=== PATIENT | female | born 1985 | race American Indian/Alaskan Native ===

== ENCOUNTER 2017-11-27 09:47 | Emergency (ER) | payer MEDICARE ==
[2017-11-27 13:27] LABS: Bilirubin,Urine NEG (Negative); Blood,Urine NEG (Negative); Color,Urine Yellow (Yellow); Mucus,Urine FEW /HPF; Nitrite,Urine NEG (Negative); Protein,Urine <15 mg/dL mg/dL (Negative); Urobilinogen,Urine < 2.0 mg/dL (<2.0); WBC,Urine < 1.0 /HPF (0.0-6.0)
[2017-11-27] MEDS ORDERED: MORPHINE IV ONE (13:34)
[2017-11-27] MEDS ORDERED: ZOFRAN IV ONE ×2 (13:34→15:49)
[2017-11-27] MEDS ORDERED: NACL 0.9% 1000 ML 1,000 ML IV ONE (13:34)
--- NOTE | 2017-11-27 13:38 | Emergency Department Report ---
Chief Complaint: Abdominal Pain Stated Complaint: LEFT FLANK/BACK PAIN - HPI History of Present Illness: 32 yo female with hx of SBO from previous surgery presents with severe left flank pain. No hx of kidney stone. Patient is in severe pain. - Exam Vital Signs: Vital Signs 11/27/17 10:22 Temperature 98.1 F Pulse Rate 75 Respiratory 16 Rate Blood Pressure 128/83 O2 Sat by Pulse 100 Oximetry MSE screening note: Focused history and physical exam performed. Due to findings the following was ordered: ED Disposition for MSE Condition: Stable Instructions: Abdominal Pain (ED) Referrals: [facility] [Other] - 3-5 Days
--- NOTE | 2017-11-27 13:44 | Emergency Department Report ---
ED Abdominal Pain HPI - General Chief Complaint: Abdominal Pain Stated Complaint: LEFT FLANK/BACK PAIN Time Seen by Provider: 11/27/17 13:40 Source: patient Mode of arrival: Ambulatory Limitations: No Limitations - History of Present Illness Initial Comments: Patient is complaining of pain since yesterday with sudden onset. Reports painful urination with blood in her urine. She states have bowel obstruction similar to that. Positive nausea and vomiting. Pain distended into the flank and throbbing. Denies any fever or chills. Denies any chest pain or shortness of breath. Last menstrual period was 11/16/2017. MD Complaint: flank pain -: Last night Location: L flank Radiation: none Migration to: no migration Severity: severe Severity scale (0 -10): 10 Quality: other (throbbing ) Consistency: constant Improves With: nothing Worsens With: nothing Associated Symptoms: nausea, vomiting, dysuria, other (history of SBO). denies : diarrhea, fever, chills, constipation, hematemesis, hematochezia, melena, hematuria, anorexia, syncope Treatments Prior to Arrival: NSAIDs - Related Data LMP Date: 11/16/17 Home Medications Medication Instructions Recorded Confirmed Last Taken FLUoxetine HCL [Prozac] 40 mg PO DAILY 02/22/14 02/22/14 02/22/14 Lisinopril/Hydrochlorothiazide 1 mg PO DAILY 02/22/14 02/22/14 02/22/14 [Zestoretic 20-12.5 mg] Topiramate [Topamax] 25 mg PO DAILY 02/22/14 02/22/14 02/21/14 fluPHENAZine HCL [Fluphenazine] 10 mg PO BID 02/22/14 02/22/14 02/22/14 metFORMIN [Glucophage] 250 mg PO DAILY 02/22/14 02/22/14 02/21/14 Previous Rx's Medication Instructions Recorded Last Taken Type HYDROcodone/APAP 5-325 [[place] 1 each PO Q6HR PRN #20 tablet 02/23/14 Unknown Rx 5/325 mg] Acetamin/Codeine 120-12Mg/5 ml 5 ml PO TID PRN #30 ml 09/02/15 Unknown Rx [Tylenol/Codeine] Azithromycin [Zithromax Z-ADAN] 250 mg PO DAILY #6 tab 09/02/15 Unknown Rx HYDROcodone/APAP 10-325 [[place] 1 each PO Q6HR PRN #12 tablet 11/27/17 Unknown Rx 10-325 mg TAB] Promethazine [Phenergan TAB] 25 mg PO Q6HR PRN #12 tab 11/27/17 Unknown Rx Allergies Allergy/AdvReac Type Severity Reaction Status Date / Time Milk Containing Products Allergy Vomiting Verified 11/27/17 10:22 ED Review of Systems ROS: Stated complaint: LEFT FLANK/BACK PAIN Other details as noted in HPI Comment: All other systems reviewed and negative Constitutional: no symptoms reported Respiratory: no symptoms reported Cardiovascular: denies: chest pain, palpitations, dyspnea on exertion, orthopnea , syncope, paroxysmal nocturnal dyspnea Gastrointestinal: denies: nausea, vomiting, diarrhea, constipation, hematemesis , melena, hematochezia Genitourinary: dysuria, hematuria, other (left flank pain). denies: urgency, frequency, discharge, abnormal menses Musculoskeletal: back pain (flank pain). 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 gastric bypass 3 months ago - Family History Family history: no significant - Social History Smoking Status: Never Smoker Substance Use Type: None - Medications Home Medications: Home Medications Medication Instructions Recorded Confirmed Last Taken Type FLUoxetine HCL [Prozac] 40 mg PO DAILY 02/22/14 02/22/14 02/22/14 History Lisinopril/Hydrochlorothiazide 1 mg PO DAILY 02/22/14 02/22/14 02/22/14 History [Zestoretic 20-12.5 mg] Topiramate [Topamax] 25 mg PO DAILY 02/22/14 02/22/14 02/21/14 History fluPHENAZine HCL [Fluphenazine] 10 mg PO BID 02/22/14 02/22/14 02/22/14 History metFORMIN [Glucophage] 250 mg PO DAILY 02/22/14 02/22/14 02/21/14 History HYDROcodone/APAP 5-325 [[place] 1 each PO Q6HR PRN #20 tablet 02/23/14 Unknown Rx 5/325 mg] Acetamin/Codeine 120-12Mg/5 ml 5 ml PO TID PRN #30 ml 09/02/15 Unknown Rx [Tylenol/Codeine] Azithromycin [Zithromax Z-ADAN] 250 mg PO DAILY #6 tab 09/02/15 Unknown Rx HYDROcodone/APAP 10-325 [[place] 1 each PO Q6HR PRN #12 tablet 11/27/17 Unknown Rx 10-325 mg TAB] Promethazine [Phenergan TAB] 25 mg PO Q6HR PRN #12 tab 11/27/17 Unknown Rx ED Physical Exam - General Limitations: No Limitations General appearance: alert, in no apparent distress - Head Head exam: Present: atraumatic, normocephalic, normal inspection - Eye Eye exam: Present: normal appearance, PERRL, EOMI Pupils: Present: normal accommodation - ENT ENT exam: Present: normal exam, normal orophraynx - Neck Neck exam: Present: normal inspection, full ROM, other (C-spine tenderness). Absent: tenderness, meningismus, lymphadenopathy, thyromegaly - Respiratory Respiratory exam: Present: normal lung sounds bilaterally, respiratory distress. Absent: rhonchi, stridor, chest wall tenderness, accessory muscle use , decreased breath sounds, prolonged expiratory - Cardiovascular Cardiovascular Exam: Present: regular rate, normal rhythm, normal heart sounds. Absent: systolic murmur, diastolic murmur - GI/Abdominal GI/Abdominal exam: Present: soft, tenderness (left lower quadrant), normal bowel sounds. Absent: distended, guarding, rebound, rigid, diminished bowel sounds, hyperactive bowel sounds, hypoactive bowel sounds, organomegaly, bruit, pulsatile mass, hernia - Extremities Exam Extremities exam: Present: normal inspection, full ROM, normal capillary refill , other (no clubbing, cyanosis or edema. +2 pulses in all extremities). Absent : tenderness, pedal edema, joint swelling, calf tenderness - Back Exam Back exam: Present: normal inspection, full ROM, tenderness, CVA tenderness (L) , other (ambulates without any difficulties). Absent: CVA tenderness (R), muscle spasm, paraspinal tenderness, vertebral tenderness, rash noted - Neurological Exam Neurological exam: Present: alert, oriented X3, normal gait, reflexes normal. Absent: motor sensory deficit - Psychiatric Psychiatric exam: Present: normal affect, normal mood - Skin Skin exam: Present: warm, dry, intact, normal color. Absent: rash ED Course Vital Signs 11/27/17 11/27/17 11/27/17 10:22 14:02 14:55 Temperature 98.1 F Pulse Rate 75 Respiratory 16 18 18 Rate Blood Pressure 128/83 O2 Sat by Pulse 100 Oximetry 11/27/17 16:00 Temperature Pulse Rate Respiratory 18 Rate Blood Pressure O2 Sat by Pulse Oximetry - Reevaluation(s) Reevaluation #1: 11/27/17 13:48 Patient started on IV fluid normal saline 1 L, Zofran 4 mg IV and morphine 4 mg IV and reevaluated. She is currently waiting for CT scan of the abdomen and pelvis without contrast. Reevaluation #2: 11/27/17 14:51 Patient received morphine and IV fluid along with Zofran. She still reported no abdominal pain. CT scan she'll probably small bowel obstruction. Patient to receive Toradol 30 mg IV. No change in abdominal exam and still with left flank pain Reevaluation #3: 11/27/17 16:07 Patient received Dilaudid 1 mg IV and Zofran 4 mg IV and is currently evaluating patient Reevaluation #4: 11/27/17 16:55 Dr. Peters saw patient and okay with patient being discharged home. Patient says she feels better and ready to be discharged ED Medical Decision Making - Lab Data Result diagrams: 11/27/17 13:48 11/27/17 13:48 Urinalysis Lab Results 11/27/17 Range/Units 13:05 Urine Color Yellow (Yellow) Urine Turbidity Clear (Clear) Urine pH 7.0 (5.0-7.0) Ur Specific [place] 1.013 (1.003-1.030) Urine Protein <15 mg/dl (Negative) mg/dL Urine Glucose (UA) Neg (Negative) mg/dL Urine Ketones Neg (Negative) mg/dL Urine Blood Neg (Negative) Urine Nitrite Neg (Negative) Urine Bilirubin Neg (Negative) Urine Urobilinogen < 2.0 (<2.0) mg/dL Ur Leukocyte Esterase Neg (Negative) Urine WBC (Auto) < 1.0 (0.0-6.0) /HPF Urine RBC (Auto) 1.0 (0.0-6.0) /HPF U Epithel Cells (Auto) 1.0 (0-13.0) /HPF Urine Mucus Few /HPF Lab Results 11/27/17 11/27/17 11/27/17 Range/Units 13:05 13:34 13:48 WBC 5.9 (4.5-11.0) K/mm3 RBC 4.02 (3.65-5.03) M/mm3 Hgb 12.1 (10.1-14.3) gm/dl Hct 36.2 (30.3-42.9) % MCV 90 (79-97) fl MCH 30 (28-32) pg MCHC 34 (30-34) % RDW 13.4 (13.2-15.2) % Plt Count 271 (140-440) K/mm3 Lymph % (Auto) 38.9 H (13.4-35.0) % Levy % (Auto) 6.7 (0.0-7.3) % Eos % (Auto) 1.7 (0.0-4.3) % Baso % (Auto) 0.7 (0.0-1.8) % Lymph # 2.3 (1.2-5.4) K/mm3 Levy # 0.4 (0.0-0.8) K/mm3 Eos # 0.1 (0.0-0.4) K/mm3 Baso # 0.0 (0.0-0.1) K/mm3 Seg Neutrophils % 52.0 (40.0-70.0) % Seg Neutrophils # 3.1 (1.8-7.7) K/mm3 Sodium (137-145) mmol/L Potassium (3.6-5.0) mmol/L Chloride (98-107) mmol/L Carbon Dioxide (22-30) mmol/L Anion Gap mmol/L BUN (7-17) mg/dL Creatinine (0.7-1.2) mg/dL Estimated GFR ml/min BUN/Creatinine Ratio % Glucose (65-100) mg/dL Calcium (8.4-10.2) mg/dL Total Bilirubin (0.1-1.2) mg/dL Direct Bilirubin (0-0.2) mg/dL Indirect Bilirubin mg/dL AST (5-40) units/L ALT (7-56) units/L Alkaline Phosphatase (35-129) units/L Total Protein (6.3-8.2) g/dL Albumin (3.9-5) g/dL Albumin/Globulin Ratio % Lipase (13-60) units/L Urine Color Yellow (Yellow) Urine Turbidity Clear (Clear) Urine pH 7.0 (5.0-7.0) Ur Specific [place] 1.013 (1.003-1.030) Urine Protein <15 mg/dl (Negative) mg/dL Urine Glucose (UA) Neg (Negative) mg/dL Urine Ketones Neg (Negative) mg/dL Urine Blood Neg (Negative) Urine Nitrite Neg (Negative) Urine Bilirubin Neg (Negative) Urine Urobilinogen < 2.0 (<2.0) mg/dL Ur Leukocyte Esterase Neg (Negative) Urine WBC (Auto) < 1.0 (0.0-6.0) /HPF Urine RBC (Auto) 1.0 (0.0-6.0) /HPF U Epithel Cells (Auto) 1.0 (0-13.0) /HPF Urine Mucus Few /HPF Urine HCG, Qual Negative (Negative) 11/27/17 Range/Units 13:48 WBC (4.5-11.0) K/mm3 RBC (3.65-5.03) M/mm3 Hgb (10.1-14.3) gm/dl Hct (30.3-42.9) % MCV (79-97) fl MCH (28-32) pg MCHC (30-34) % RDW (13.2-15.2) % Plt Count (140-440) K/mm3 Lymph % (Auto) (13.4-35.0) % Levy % (Auto) (0.0-7.3) % Eos % (Auto) (0.0-4.3) % Baso % (Auto) (0.0-1.8) % Lymph # (1.2-5.4) K/mm3 Levy # (0.0-0.8) K/mm3 Eos # (0.0-0.4) K/mm3 Baso # (0.0-0.1) K/mm3 Seg Neutrophils % (40.0-70.0) % Seg Neutrophils # (1.8-7.7) K/mm3 Sodium 137 (137-145) mmol/L Potassium 4.2 (3.6-5.0) mmol/L Chloride 99.6 (98-107) mmol/L Carbon Dioxide 27 (22-30) mmol/L Anion Gap 15 mmol/L BUN 7 (7-17) mg/dL Creatinine 0.4 L (0.7-1.2) mg/dL Estimated GFR > 60 ml/min BUN/Creatinine Ratio 18 % Glucose 89 (65-100) mg/dL Calcium 9.0 (8.4-10.2) mg/dL Total Bilirubin 0.60 (0.1-1.2) mg/dL Direct Bilirubin < 0.2 (0-0.2) mg/dL Indirect Bilirubin 0.4 mg/dL AST 18 (5-40) units/L ALT 17 (7-56) units/L Alkaline Phosphatase 72 (35-129) units/L Total Protein 6.9 (6.3-8.2) g/dL Albumin 4.0 (3.9-5) g/dL Albumin/Globulin Ratio 1.4 % Lipase 19 (13-60) units/L Urine Color (Yellow) Urine Turbidity (Clear) Urine pH (5.0-7.0) Ur Specific [place] (1.003-1.030) Urine Protein (Negative) mg/dL Urine Glucose (UA) (Negative) mg/dL Urine Ketones (Negative) mg/dL Urine Blood (Negative) Urine Nitrite (Negative) Urine Bilirubin (Negative) Urine Urobilinogen (<2.0) mg/dL Ur Leukocyte Esterase (Negative) Urine WBC (Auto) (0.0-6.0) /HPF Urine RBC (Auto) (0.0-6.0) /HPF U Epithel Cells (Auto) (0-13.0) /HPF Urine Mucus /HPF Urine HCG, Qual (Negative) - Radiology Data Radiology results: report reviewed CT scan with dilated small bowel related to the lower surgical clips. Consider partial obstruction. Nonobstructive small left renal calculi - Medical Decision Making ED course: Patient here complaining of left flank pain that radiated into her lower abdomen. Patient found to have left kidney stone and CT scan showed possible bowel obstruction. Patient was seen by surgeon Dr. Peters who evaluated patient and reported that he looked head CT scan and patient has swelling to her colon which is related to past surgery and not to bowel obstruction. Patient laboratory results stable to include urinalysis. Please refer to left section for details. CT scan results and laboratory results discussed with patient and she voiced understanding. Patient had her surgery at the [facility] for gastric bypass and I discussed with her that she'll need to follow up with her surgeon and also her primary care physician which she does have a primary care physician. Patient medicated with morphine 4 mg IV total of 8 mg IV, she was given normal saline 2 L, Toradol 30 mg IV ,Zofran 8 mg and Dilaudid 1 mg IV. Her pain is controlled. Vital signs stable and patient discharged home with her family in stable condition with prescription for Moren[place] and Phenergan. She is feeling much better. Critical care attestation.: If time is entered above; I have spent that time in minutes in the direct care of this critically ill patient, excluding procedure time. ED Disposition Clinical Impression: Left flank pain, Status post gastric bypass for obesity, Kidney stone on left side, Nausea and vomiting in adult, Dysuria Abdominal pain Qualifiers: Abdominal location: left lower quadrant Qualified Code(s): R10.32 - Left lower quadrant pain Disposition: DC-01 TO HOME OR SELFCARE Is pt being admited?: No Does the pt Need Aspirin: No Condition: Stable Instructions: Flank Pain (ED), Renal Colic (ED), Acute Nausea and Vomiting (ED) , Dysuria (ED), Abdominal Pain (ED) Additional Instructions: Please follow up with a primary care physician and also your surgeon at the [facility] Take medication as prescribed Increase your fluid intake to 2-3 L of water and cranberry juice per day. Do not drive or operate heavy machinery while taking Morenci and Phenergan as this medication causes drowsiness If you symptoms return , return to the emergency room otherwise follow-up with your primary care doctor Prescriptions: HYDROcodone/APAP 10-325 [[place] 10-325 mg TAB] 1 each PO Q6HR PRN #12 tablet PRN Reason: Pain Promethazine [Phenergan TAB] 25 mg PO Q6HR PRN #12 tab PRN Reason: Nausea Referrals: [facility] [Other] - 3-5 Days Forms: Work/School Release Form(ED)
[2017-11-27 13:54] LABS: HCG Qualitative,Urine Negative (Negative)
[2017-11-27 14:13] LABS: Basophils % (Auto) 0.7 % (0.0-1.8); Eosinophils # (Auto) 0.1 K/mm3 (0.0-0.4); Eosinophils % (Auto) 1.7 % (0.0-4.3); Hematocrit 36.2 % (30.3-42.9); Hemoglobin 12.1 gm/dl (10.1-14.3); Lymphocytes # (Auto) 2.3 K/mm3 (1.2-5.4); Lymphocytes % (Auto) 38.9 % (13.4-35.0); Mean Corpuscular HGB Conc 34 % (30-34); Mean Corpuscular Hemoglobin 30 pg (28-32); Mean Corpuscular Volume 90 fl (79-97); Monocytes # (Auto) 0.4 K/mm3 (0.0-0.8); Monocytes % (Auto) 6.7 % (0.0-7.3); Platelet Count 271 K/mm3 (140-440); Red Blood Count 4.02 M/mm3 (3.65-5.03); Red Cell Distribution Width 13.4 % (13.2-15.2)
[2017-11-27 14:27] LABS: Alanine Aminotransferase 17 units/L (7-56); BUN/Creatinine Ratio 18; Blood Urea Nitrogen 7 mg/dL (7-17); Hemolysis Index 3; Lipase 19 units/L (13-60)
[2017-11-27 14:28] LABS: Bilirubin,Direct < 0.2 mg/dL (0-0.2)
--- NOTE | 2017-11-27 14:34 | Cat Scan Report ---
CT abdomen and pelvis without contrast: Gastric bypass and colon tumor removal currently presenting with flank pain mostly on the left. Transverse images were obtained from the lower chest with coronal and sagittal reformatted images. The visualized lung bases are clear. Gastric bypass changes are noted with no apparent complication. The abdominal organs are not otherwise remarkable. 2 small calculi are present in the mid left kidney the larger measuring 3 mm. No obstruction. The retroperitoneal organs are not otherwise remarkable. Scattered surgical clips are also identified in the low midabdomen. There are several dilated loops of small bowel in the lower abdomen in the region of the clips. There is gas and fecal matter in the nondistended colon. Impression: 1. Dilated small bowel related to the lower surgical clips. Consider partial obstruction. 2. Nonobstructing small left renal calculi.
[2017-11-27] MEDS ORDERED: TORADOL IV ONE (14:38)
[2017-11-27] MEDS ORDERED: DILAUDID IV ONE (15:49)
[2017-11-27 17:22] VITALS: BP 114/64
--- NOTE | 2017-11-27 18:37 | Consultation ---
History of Present Illness Consult date: 11/27/17 Reason for consult: abdominal pain Requesting physician: NORA CLIFTON Chief complaint: abdominal pain since yesterday - History of present illness History of present illness: 32yo F with h/o multiple abdominal surgeries including ex-lap for bowel obstruction last year presents with 2 day h/o left sided abdominal pain, N/V, hematuria. Pain is similar to when she had a bowel obstruction in the past. Has been vomiting small amount of yellow liquid since yesterday. Had a normal BM today. Has been passing gas. Body feels a little bloated which is normal for her during this part of her menstrual cycle. The pain is hard to describe. Does come and go. Involves the left back, side, hip and left lower abdomen. Denies F/ C. No cough or cold sx's. No chest pain. No breathing difficulties. No hematemesis or BRBPR. Past History Past Medical History: diabetes, hypertension, other (bipolar) Past Surgical History: appendectomy, bowel surgery (partial colectomy for "carcinoid?"; lysis of adhesions for bowel obstruction.), Other (gastric bypass surgery) Social history: other (not working). denies: smoking, alcohol abuse Family history: no significant family history Medications and Allergies Allergies Allergy/AdvReac Type Severity Reaction Status Date / Time Milk Containing Products Allergy Vomiting Verified 11/27/17 10:22 Home Medications Medication Instructions Recorded Confirmed Last Taken Type FLUoxetine HCL [Prozac] 40 mg PO DAILY 02/22/14 02/22/14 02/22/14 History Lisinopril/Hydrochlorothiazide 1 mg PO DAILY 02/22/14 02/22/14 02/22/14 History [Zestoretic 20-12.5 mg] Topiramate [Topamax] 25 mg PO DAILY 02/22/14 02/22/14 02/21/14 History fluPHENAZine HCL [Fluphenazine] 10 mg PO BID 02/22/14 02/22/14 02/22/14 History metFORMIN [Glucophage] 250 mg PO DAILY 02/22/14 02/22/14 02/21/14 History HYDROcodone/APAP 5-325 [[place] 1 each PO Q6HR PRN #20 tablet 02/23/14 Unknown Rx 5/325 mg] Acetamin/Codeine 120-12Mg/5 ml 5 ml PO TID PRN #30 ml 09/02/15 Unknown Rx [Tylenol/Codeine] Azithromycin [Zithromax Z-ADAN] 250 mg PO DAILY #6 tab 09/02/15 Unknown Rx HYDROcodone/APAP 10-325 [[place] 1 each PO Q6HR PRN #12 tablet 11/27/17 Unknown Rx 10-325 mg TAB] Promethazine [Phenergan TAB] 25 mg PO Q6HR PRN #12 tab 11/27/17 Unknown Rx Review of Systems - Constitutional no fever, no chills, no sweats - Cardiovascular no chest pain - Respiratory no cough, no shortness of breath - Gastrointestinal abdominal pain (only on left side), nausea, vomiting, dyspepsia/bloating ( normal during time of her cycle), no diarrhea, no hematemesis, no BRBPR - Genitourinary Genitourinary: hematuria (yesterday) - Hematologic/Lymphatic no easy bruising, no easy bleeding Exam Vital Signs Temp Pulse Resp BP Pulse Ox 98.1 F 75 16 128/83 100 11/27/17 10:22 11/27/17 10:22 11/27/17 10:22 11/27/17 10:22 11/27/17 10:22 - General physical appearance Positive: well developed, well nourished, no distress, moderate pain ( intermittenly), other (overweight) - Eyes Positive: normal occular movement. Negative: icteric - Respiratory Positive: normal expansion, normal respiratory effort - Abdomen Abdomen: Present: soft, tender (only on left side. No pelvic shake tenderness), bowel sounds normal, surgical scars (well healed. Midline scar). Absent: distended, rebound, guarding, rigid Hernia: none - Integumentary no rash - Neurologic Neurologic: alert and oriented to time, place and person, motor strength and sensation are grossly intact - Psychiatric Psychiatric: appropriate mood/affect, intact judgment & insight Results - Labs 11/27/17 13:48 11/27/17 13:48 Abnormal lab results 11/27/17 11/27/17 Range/Units 13:48 13:48 Lymph % (Auto) 38.9 H (13.4-35.0) % Creatinine 0.4 L (0.7-1.2) mg/dL Diabetes panel 11/27/17 Range/Units 13:48 Sodium 137 (137-145) mmol/L Potassium 4.2 (3.6-5.0) mmol/L Chloride 99.6 (98-107) mmol/L Carbon Dioxide 27 (22-30) mmol/L BUN 7 (7-17) mg/dL Creatinine 0.4 L (0.7-1.2) mg/dL Glucose 89 (65-100) mg/dL Calcium 9.0 (8.4-10.2) mg/dL AST 18 (5-40) units/L ALT 17 (7-56) units/L Alkaline Phosphatase 72 (35-129) units/L Total Protein 6.9 (6.3-8.2) g/dL Albumin 4.0 (3.9-5) g/dL Calcium panel 11/27/17 Range/Units 13:48 Calcium 9.0 (8.4-10.2) mg/dL Albumin 4.0 (3.9-5) g/dL Pituitary panel 11/27/17 Range/Units 13:48 Sodium 137 (137-145) mmol/L Potassium 4.2 (3.6-5.0) mmol/L Chloride 99.6 (98-107) mmol/L Carbon Dioxide 27 (22-30) mmol/L BUN 7 (7-17) mg/dL Creatinine 0.4 L (0.7-1.2) mg/dL Glucose 89 (65-100) mg/dL Calcium 9.0 (8.4-10.2) mg/dL Adrenal panel 11/27/17 Range/Units 13:48 Sodium 137 (137-145) mmol/L Potassium 4.2 (3.6-5.0) mmol/L Chloride 99.6 (98-107) mmol/L Carbon Dioxide 27 (22-30) mmol/L BUN 7 (7-17) mg/dL Creatinine 0.4 L (0.7-1.2) mg/dL Glucose 89 (65-100) mg/dL Calcium 9.0 (8.4-10.2) mg/dL Total Bilirubin 0.60 (0.1-1.2) mg/dL AST 18 (5-40) units/L ALT 17 (7-56) units/L Alkaline Phosphatase 72 (35-129) units/L Total Protein 6.9 (6.3-8.2) g/dL Albumin 4.0 (3.9-5) g/dL - Imaging CT scan - abdomen: report reviewed, image reviewed Assessment and Plan - Patient Problems (1) Abdominal pain Status: Acute Qualifiers: Abdominal location: left lower quadrant Qualified Code(s): R10.32 - Left lower quadrant pain Plan to address problem: Pt is stable. Pt does not have a bowel obstruction. The CT is not consistent with that diagnosis. Her normal bowel activity today is not consistent. Perhaps she has a muscle strain or a kidney stone. In any event, patient does not require hospital admission for SBO, NGT, or surgery. Discussed with ED team. Ok to go home from my perspective. Time=45min
== END 2017-11-27 17:21 | disposition home or self-care (01) ==
LOC: ED 09:47
DX: R10.30 Lower abdominal pain, unspecified (principal); E66.9 Obesity, unspecified; R11.2 Nausea with vomiting, unspecified; I10 Essential (primary) hypertension; E11.9 Type 2 diabetes mellitus without complications
CPT/HCPCS: 36415; 74176; 80048; 80074; 81001; 81025; 83690; 85025; 87086; 96361; 96374; 96375; 96376; 99284; J1170; J1885; J2270; J2405; J7030

== ENCOUNTER 2017-11-29 10:56 | Emergency (ER) | payer MEDICARE ==
[2017-11-29 11:00] VITALS: BP 132/78
[2017-11-29] MEDS ORDERED: ZOFRAN IV ONE (12:53)
[2017-11-29] MEDS ORDERED: TORADOL IV ONE (12:53)
[2017-11-29] MEDS ORDERED: NACL 0.9% 1000 ML 1,000 ML IV ONE (12:56)
--- NOTE | 2017-11-29 12:56 | Emergency Department Report ---
Chief Complaint: Back Pain/Injury Stated Complaint: BACK PAIN Time Seen by Provider: 11/29/17 12:40 - HPI History of Present Illness: Pt is a 32 yo female here for recurrent vomiting, back pain, and recent diagnosis of kidney stone from a visit 2 days ago. - ROS Review of Systems: ROS: all other systems reviewed and neg except as noted per HPI - Exam Vital Signs: Vital Signs 11/29/17 10:58 Temperature 98.7 F Pulse Rate 93 H Respiratory 16 Rate Blood Pressure 132/78 O2 Sat by Pulse 100 Oximetry Physical Exam: PE: general: awake , alert non-toxic appearing in no acute distress Heent: eomi, perrla; mmm: moist;pharyn clear Lungs:clear Heart: RRR; no g/m/r Abd: soft ND. +Bs; nt; no peritoneal signs MSE screening note: Focused history and physical exam performed. Due to findings the following was ordered: ED Disposition for MSE Condition: Stable Referrals: PRIMARY CARE, [Primary Care Provider] - 3-5 Days
[2017-11-29 13:30] LABS: Basophils % (Auto) 0.7 % (0.0-1.8); Eosinophils # (Auto) 0.1 K/mm3 (0.0-0.4); Eosinophils % (Auto) 2.3 % (0.0-4.3); Hematocrit 37.2 % (30.3-42.9); Hemoglobin 12.2 gm/dl (10.1-14.3); Lymphocytes # (Auto) 2.1 K/mm3 (1.2-5.4); Lymphocytes % (Auto) 45.9 % (13.4-35.0); Mean Corpuscular HGB Conc 33 % (30-34); Mean Corpuscular Hemoglobin 30 pg (28-32); Mean Corpuscular Volume 90 fl (79-97); Monocytes # (Auto) 0.4 K/mm3 (0.0-0.8); Monocytes % (Auto) 8.4 % (0.0-7.3); Platelet Count 302 K/mm3 (140-440); Red Blood Count 4.12 M/mm3 (3.65-5.03); Red Cell Distribution Width 13.7 % (13.2-15.2)
[2017-11-29 13:44] LABS: Alanine Aminotransferase 17 units/L (7-56); Albumin 3.6 g/dL (3.9-5); BUN/Creatinine Ratio 12; Blood Urea Nitrogen 6 mg/dL (7-17); Calcium 8.5 mg/dL (8.4-10.2); Hemolysis Index 42
[2017-11-29] MEDS ORDERED: REGLAN IV ONE (14:17)
[2017-11-29 14:28] LABS: Color,Urine Yellow (Yellow)
[2017-11-29 14:29] LABS: Bilirubin,Urine NEG (Negative); Blood,Urine NEG (Negative); Mucus,Urine 2+ /HPF; Nitrite,Urine NEG (Negative); Protein,Urine <15 mg/dL mg/dL (Negative)
[2017-11-29 14:43] LABS: HCG Qualitative,Urine Negative (Negative)
== END 2017-11-29 14:40 ==
LOC: ED 10:56
DX: R11.10 Vomiting, unspecified (principal); M54.9 Dorsalgia, unspecified; Z53.21 Procedure and treatment not carried out due to patient leaving prior to being seen by health care provider
CPT/HCPCS: 36415; 80053; 81001; 81025; 85025; 96361; 96374; 96375; J1885; J2405; J2765; J7030

== ENCOUNTER 2018-02-05 11:07 | Emergency (ER) | payer MEDICARE ==
[2018-02-05] MEDS ORDERED: ASPIRIN PO ONE (11:30)
[2018-02-05 12:00] LABS: Basophils # (Auto) 0.1 K/mm3 (0.0-0.1); Basophils % (Auto) 1.2 % (0.0-1.8); Eosinophils # (Auto) 0.1 K/mm3 (0.0-0.4); Eosinophils % (Auto) 2.9 % (0.0-4.3); Hematocrit 34.7 % (30.3-42.9); Hemoglobin 11.6 gm/dl (10.1-14.3); Lymphocytes # (Auto) 2.1 K/mm3 (1.2-5.4); Lymphocytes % (Auto) 45.7 % (13.4-35.0); Mean Corpuscular HGB Conc 34 % (30-34); Mean Corpuscular Hemoglobin 29 pg (28-32); Mean Corpuscular Volume 86 fl (79-97); Monocytes # (Auto) 0.4 K/mm3 (0.0-0.8); Monocytes % (Auto) 9.4 % (0.0-7.3); Platelet Count 262 K/mm3 (140-440); Red Blood Count 4.04 M/mm3 (3.65-5.03); Red Cell Distribution Width 13.6 % (13.2-15.2)
[2018-02-05 12:13] LABS: BUN/Creatinine Ratio 14; Blood Urea Nitrogen 7 mg/dL (7-17); Calcium 8.5 mg/dL (8.4-10.2); Hemolysis Index 1
--- NOTE | 2018-02-05 20:14 | Emergency Department Report ---
ED General Adult HPI - General Chief complaint: Chest Pain Stated complaint: CP/POLLACK Time Seen by Provider: 02/05/18 20:06 Source: patient Mode of arrival: Ambulatory Limitations: No Limitations - History of Present Illness Initial comments: Patient is a 32 years old female with no significant past medical history presented to the ER complaining of chest pain and substernal sharp in nature associated with nausea but no vomiting. Patient stated that she woke up yesterday with these symptoms she also reported that she had left upper and lower extremity numbness. Patient denied any neck pain or injury recently. Patient denied any fever cough or congestion. - Related Data Home Medications Medication Instructions Recorded Confirmed Last Taken FLUoxetine HCL [Prozac] 40 mg PO DAILY 02/22/14 02/22/14 02/22/14 Lisinopril/Hydrochlorothiazide 1 mg PO DAILY 02/22/14 02/22/14 02/22/14 [Zestoretic 20-12.5 mg] Topiramate [Topamax] 25 mg PO DAILY 02/22/14 02/22/14 02/21/14 fluPHENAZine HCL [Fluphenazine] 10 mg PO BID 02/22/14 02/22/14 02/22/14 metFORMIN [Glucophage] 250 mg PO DAILY 02/22/14 02/22/14 02/21/14 Previous Rx's Medication Instructions Recorded Last Taken Type HYDROcodone/APAP 5-325 [[place] 1 each PO Q6HR PRN #20 tablet 02/23/14 Unknown Rx 5/325 mg] Acetamin/Codeine 120-12Mg/5 ml 5 ml PO TID PRN #30 ml 09/02/15 Unknown Rx [Tylenol/Codeine] Azithromycin [Zithromax Z-ADAN] 250 mg PO DAILY #6 tab 09/02/15 Unknown Rx HYDROcodone/APAP 10-325 [[place] [employer] 1 each PO Q6HR PRN #12 tablet 11/27/17 Unknown Rx 10-325 mg TAB] Promethazine [Phenergan TAB] 25 mg PO Q6HR PRN #12 tab 11/27/17 Unknown Rx Allergies Allergy/AdvReac Type Severity Reaction Status Date / Time Milk Containing Products Allergy Vomiting Verified 11/29/17 10:58 ED Review of Systems ROS: Stated complaint: CP/POLLACK Other details as noted in HPI Comment: All other systems reviewed and negative Constitutional: denies: chills, fever Respiratory: denies: shortness of breath, SOB with exertion Cardiovascular: chest pain. denies: palpitations, dyspnea on exertion Gastrointestinal: denies: abdominal pain, nausea, vomiting, diarrhea, constipation, hematemesis, melena, hematochezia Genitourinary: denies: urgency, dysuria, frequency, hematuria Neurological: numbness. denies: headache, weakness, paresthesias, confusion, abnormal gait, vertigo ED Past Medical Hx - Past Medical History Hx Hypertension: Yes Hx Diabetes: Yes Hx Psychiatric Treatment: Yes (bipolar) - Surgical History Hx Appendectomy: Yes Additional Surgical History: "tumor on colon removed". gastric bypass 3 months ago - Social History Smoking Status: Never Smoker Substance Use Type: None - Medications Home Medications: Home Medications Medication Instructions Recorded Confirmed Last Taken Type FLUoxetine HCL [Prozac] 40 mg PO DAILY 02/22/14 02/22/14 02/22/14 History Lisinopril/Hydrochlorothiazide 1 mg PO DAILY 02/22/14 02/22/14 02/22/14 History [Zestoretic 20-12.5 mg] Topiramate [Topamax] 25 mg PO DAILY 02/22/14 02/22/14 02/21/14 History fluPHENAZine HCL [Fluphenazine] 10 mg PO BID 02/22/14 02/22/14 02/22/14 History metFORMIN [Glucophage] 250 mg PO DAILY 02/22/14 02/22/14 02/21/14 History HYDROcodone/APAP 5-325 [[place] [employer] 1 each PO Q6HR PRN #20 tablet 02/23/14 Unknown Rx 5/325 mg] Acetamin/Codeine 120-12Mg/5 ml 5 ml PO TID PRN #30 ml 09/02/15 Unknown Rx [Tylenol/Codeine] Azithromycin [Zithromax Z-ADAN] 250 mg PO DAILY #6 tab 09/02/15 Unknown Rx HYDROcodone/APAP 10-325 [[place] 1 each PO Q6HR PRN #12 tablet 11/27/17 Unknown Rx 10-325 mg TAB] Promethazine [Phenergan TAB] 25 mg PO Q6HR PRN #12 tab 11/27/17 Unknown Rx ED Physical Exam - General Limitations: No Limitations General appearance: alert, in no apparent distress - Head Head exam: Present: atraumatic, normocephalic, normal inspection - Eye Eye exam: Present: normal appearance, PERRL - ENT ENT exam: Present: normal exam, normal orophraynx, mucous membranes moist - Neck Neck exam: Present: normal inspection, full ROM. Absent: tenderness, meningismus, lymphadenopathy - Respiratory Respiratory exam: Present: normal lung sounds bilaterally. Absent: respiratory distress, wheezes, rales - Cardiovascular Cardiovascular Exam: Present: regular rate, normal rhythm, normal heart sounds - GI/Abdominal GI/Abdominal exam: Present: soft, normal bowel sounds. Absent: distended, tenderness, guarding, rebound, rigid, organomegaly, mass, bruit, pulsatile mass , hernia - Extremities Exam Extremities exam: Present: normal inspection, full ROM, normal capillary refill - Back Exam Back exam: Present: normal inspection, full ROM. Absent: CVA tenderness (L) - Neurological Exam Neurological exam: Present: alert, oriented X3, CN II-XII intact, normal gait - Skin Skin exam: Present: warm, intact, normal color ED Course Vital Signs 02/05/18 11:26 Temperature 98.1 F Pulse Rate 84 Respiratory 17 Rate Blood Pressure 131/86 O2 Sat by Pulse 99 Oximetry ED Medical Decision Making - Lab Data Result diagrams: 02/05/18 11:35 02/05/18 11:35 - EKG Data -: EKG Interpreted by [place] EKG shows normal: sinus rhythm Rate: normal - EKG Data Interpretation: no acute changes - Radiology Data Radiology results: report reviewed Referring Physician: BRANDO PIPER Patient Name: DARIAN EATON Date of : 1985 Sex: Female Report Date: 2018-02-05 Report Status: Finalized Findings [facility] [address] [place] [address] XRay Report Signed Patient: DARIAN EATON MR#: [id number] : 1985 Acct:[id number] Age/Sex: 32 / F ADM Date: 02/05/18 Loc: ED Attending Dr: Ordering Physician: BRANDO PIPER Date of Service: 02/05/18 Procedure(s): XR chest 1V ap Accession Number(s): [id number] cc: BRANDO PIPER Fluoro Time In Minutes: FINAL REPORT EXAM: XR CHEST 1V AP HISTORY: chest pain TECHNIQUE: Chest, portable upright PRIORS: None. FINDINGS: The heart size is normal. Mediastinal contours are normal. Pulmonary vasculature is not congested. The lungs are clear. There are no pleural effusion seen. There is no evidence of pneumothorax. IMPRESSION: There is no acute abnormality identified. Transcribed By: [facility] Dictated By: ALONZO WILLIS MD Electronically Authenticated By: ALONZO WILLIS MD Signed Date/Time: 02/05/182158 Referring Physician: BRANDO PIPER Patient Name: DARIAN EATON Date of : 1985 Sex: Female Report Date: 2018-02-05 Report Status: [place] [id number] Cat Scan Report Signed Patient: DARIAN EATON MR#: [id number] : 1985 Acct:[id number] Age/Sex: 32 / F ADM Date: 02/05/18 Loc: ED Attending Dr: Ordering Physician: BRANDO PIPER Date of Service: 02/05/18 Procedure(s): CT head/brain wo con Accession Number(s): [id number] cc: BRANDO PIPER FINAL REPORT PROCEDURE: CT HEAD/BRAIN WO CON TECHNIQUE: Computerized tomography of the head was performed without contrast material. HISTORY: left side numbness COMPARISON: No prior studies are available for comparison. FINDINGS: No CT evidence of intracranial mass, hemorrhage, acute territorial infarction, or hydrocephalus. Calvarium is intact. Visualized paranasal sinuses and mastoids are aerated. IMPRESSION: No CT evidence of acute intracranial abnormality Transcribed By: [facility] Dictated By: MORENA TURCIOS M.D. Electronically Authenticated By: MORENA TURCIOS M.D. Signed Date/Time: 02/05/182126 DD/ 26 TD/TT: 02/05/182126 DD/ 58 TD/TT: 02/05/182158 Critical care attestation.: If time is entered above; I have spent that time in minutes in the direct care of this critically ill patient, excluding procedure time. ED Disposition Clinical Impression: Atypical chest pain, Numbness and tingling Disposition: - TO HOME OR SELFCARE Is pt being admited?: No Condition: Stable Instructions: Chest Pain (ED), Costochondritis (ED) Referrals: MERNA LI MD [Primary Care Provider] - 3-5 Days
[2018-02-05 20:51] LABS: Bilirubin,Urine NEG (Negative); Blood,Urine NEG (Negative); Color,Urine Yellow (Yellow); Mucus,Urine 2+ /HPF; Protein,Urine <15 mg/dL mg/dL (Negative); Urobilinogen,Urine < 2.0 mg/dL (<2.0)
[2018-02-05 20:52] LABS: HCG Qualitative,Urine Negative (Negative)
[2018-02-05] MEDS ORDERED: ASPIRIN ONE (21:10)
--- NOTE | 2018-02-05 21:32 | Cat Scan Report ---
FINAL REPORT PROCEDURE: CT HEAD/BRAIN WO CON TECHNIQUE: Computerized tomography of the head was performed without contrast material. HISTORY: left side numbness COMPARISON: No prior studies are available for comparison. FINDINGS: No CT evidence of intracranial mass, hemorrhage, acute territorial infarction, or hydrocephalus. Calvarium is intact. Visualized paranasal sinuses and mastoids are aerated. IMPRESSION: No CT evidence of acute intracranial abnormality
--- NOTE | 2018-02-05 22:04 | XRay Report ---
FINAL REPORT EXAM: XR CHEST 1V AP HISTORY: chest pain TECHNIQUE: Chest, portable upright PRIORS: None. FINDINGS: The heart size is normal. Mediastinal contours are normal. Pulmonary vasculature is not congested. The lungs are clear. There are no pleural effusion seen. There is no evidence of pneumothorax. IMPRESSION: There is no acute abnormality identified.
[2018-02-05 22:45] VITALS: BP 126/81
== END 2018-02-05 22:56 | disposition home or self-care (01) ==
LOC: ED 11:07
DX: R07.89 Other chest pain (principal); R20.2 Paresthesia of skin
CPT/HCPCS: 36415; 70450; 71045; 80048; 81001; 81025; 83690; 84484; 85025; 93005; 93010

== ENCOUNTER 2018-12-15 08:33 | Observation (INO) | payer MEDICARE ==
[2018-12-11 09:51] LABS: Basophils % (Auto) 1.3 % (0.0-1.8); Eosinophils # (Auto) 0.1 K/mm3 (0.0-0.4); Eosinophils % (Auto) 2.2 % (0.0-4.3); Hematocrit 29.3 % (30.3-42.9); Hemoglobin 9.8 gm/dl (10.1-14.3); Lymphocytes # (Auto) 1.6 K/mm3 (1.2-5.4); Lymphocytes % (Auto) 41.9 % (13.4-35.0); Mean Corpuscular HGB Conc 34 % (30-34); Mean Corpuscular Volume 78 fl (79-97); Monocytes # (Auto) 0.3 K/mm3 (0.0-0.8); Monocytes % (Auto) 6.9 % (0.0-7.3); Platelet Count 323 K/mm3 (140-440); Red Blood Count 3.76 M/mm3 (3.65-5.03); Red Cell Distribution Width 17.2 % (13.2-15.2)
--- NOTE | 2018-12-11 09:51 | Anesthesia Consultation ---
Anesthesia Consult and Med Hx Date of service: 12/15/18 - Airway Anesthetic Teeth Evaluation: Good ROM Head & Neck: Adequate Mental/Hyoid Distance: Adequate Mallampati Class: Class II Intubation Access Assessment: Good - Pre-Operative Health Status ASA Pre-Surgery Classification: ASA2 Proposed Anesthetic Plan: General Nerve Block: TAP - Cardiovascular System Hx Hypertension: Yes - Central Nervous System Hx Psychiatric Problems: Yes (Depression) - Hematic Hx Anemia: Yes - Other Systems Hx Cancer: No
[~2018-12-15 08:33] MED LIST: LACTATED RINGERS 1,000 ML IV SCH; NEURONTIN PO NR; TYLENOL PO NR
[2018-12-15] MEDS ORDERED: TYLENOL PO SCH (09:00)
[2018-12-15] MEDS ORDERED: NEURONTIN PO NR (09:00)
--- NOTE | 2018-12-15 09:28 | History and Physical Report ---
History of Present Illness Date of examination: 12/15/18 Chief complaint: Symptomatic uterine fibroids History of present illness: Patient is a 33-year-old female LMP 10/27/18 presents for surgical evaluation and treatment of uterine fibroids. She complains of prolonged heavy vaginal bleeding, and pelvic ultrasound showed uterine fibroids and endometrial biopsy was benign. She desires ovarian conservation, and so is scheduled for a Robotic-Assisted Total Hysterectomy with bilateral salpingectomy. Past History Past Medical History: kidney stones, other (anemia) Past Surgical History: appendectomy, colorectal surgery, gastric bypass [place] History: fibroids Family/Genetic History: none Social history: no significant social history, single Medications and Allergies Allergies Allergy/AdvReac Type Severity Reaction Status Date / Time Milk Containing Products Allergy Vomiting Verified 12/09/18 14:34 Home Medications Medication Instructions Recorded Confirmed Last Taken Type FLUoxetine HCL [Prozac] 40 mg PO DAILY 02/22/14 12/15/18 12/14/18 History Active Meds: Active Medications Acetaminophen (Tylenol) 650 mg PO PREOP JOSE ANTONIO Stop: 12/15/18 23:59 Last Admin: 12/15/18 09:22 Dose: 650 mg Documented by: Celecoxib (Celebrex) 200 mg PO PREOP NR Stop: 12/15/18 15:00 Last Admin: 12/15/18 09:22 Dose: 200 mg Documented by: Gabapentin (Neurontin) 300 mg PO PREOP NR Stop: 12/15/18 16:00 Last Admin: 12/15/18 09:22 Dose: 300 mg Documented by: Lactated Ringer's (Lactated Ringers) 1,000 mls @ 125 mls/hr IV DIRECT JOSE ANTONIO Last Admin: 12/15/18 09:22 Dose: 125 mls/hr Documented by: Review of Systems All systems: negative - Vital Signs Vital signs: Vital Signs Temp Pulse Resp BP Pulse Ox 97.8 F 79 18 126/87 98 12/11/18 09:30 12/11/18 09:30 12/11/18 09:30 12/11/18 09:30 12/11/18 09:30 Temp Pulse Resp BP Pulse Ox 97.8 F 79 18 126/87 98 12/11/18 09:30 12/11/18 09:30 12/11/18 09:30 12/11/18 09:30 12/11/18 09:30 - Physical Exam Breasts: Positive: deferred Cardiovascular: Regular rate Lungs: Positive: Clear to auscultation Abdomen: Positive: normal appearance Genitourinary (Female): Positive: normal external genitalia Vagina: Positive: normal moisture Uterus: Positive: enlarged Extremities: Positive: normal Results Result Diagrams: 12/11/18 09:40 All other labs normal. Ultrasound: report reviewed Assessment and Plan - Patient Problems (1) Uterine fibroid Onset Date: 12/15/18 Current Visit: Yes Status: Acute Qualifiers: Uterine leiomyoma location: intramural and submucous Qualified Code(s): D25.1 - Intramural leiomyoma of uterus; D25.0 - Submucous leiomyoma of uterus Plan to address problem: A: Symptomatic uterine fibroids Menorrhagia Anemia P: Will admit for a Robotic-Assisted Total Hysterectomy with bilateral salpingectomy (2) Menorrhagia with irregular cycle Onset Date: 12/15/18 Current Visit: Yes Status: Chronic
[2018-12-15] MEDS ORDERED: ANCEF/STERILE WATER 2 GM/20 ML 2 GM/20 ML SYRINGE IV SCH (10:00)
[2018-12-15] MEDS ORDERED: NEOSPORIN GU IR ONE ×2 (10:53→11:43)
[2018-12-15] MEDS ORDERED: BLOXIVERZ ONE (10:57)
[2018-12-15] MEDS ORDERED: DIPRIVAN 10 MG/ML IV ONE (10:57)
[2018-12-15] MEDS ORDERED: SUBLIMAZE ONE (10:57)
[2018-12-15] MEDS ORDERED: ROBINUL ONE (10:57)
[2018-12-15] MEDS ORDERED: DECADRON ONE (10:57)
[2018-12-15] MEDS ORDERED: XYLOCAINE MPF 2% ONE (10:57)
[2018-12-15] MEDS ORDERED: TORADOL ONE (10:57)
[2018-12-15] MEDS ORDERED: VERSED IV NR (11:00)
[2018-12-15] MEDS ORDERED: VERSED ONE (11:00)
[2018-12-15] MEDS ORDERED: NACL 0.9% IR ONE ×2 (11:43)
[2018-12-15] MEDS ORDERED: ZOFRAN ONE (12:00)
[2018-12-15] MEDS ORDERED: QUELICIN ONE (12:00)
[2018-12-15] MEDS ORDERED: ZEMURON IV ONE (12:00)
[2018-12-15] MEDS ORDERED: MARCAINE 0.5% INFILTRATI ONE (12:52)
[2018-12-15] MEDS ORDERED: XYLOCAINE 1% 20 mL ONE (12:52)
--- NOTE | 2018-12-15 13:22 | Operative Report ---
Operative Report Operative Report: Date of procedure: 12/15/2018 Pre-operative diagnosis: 1. Symptomatic uterine fibroids 2. Menorrhagia 3. Anemia Post-operative diagnosis: Same Procedure name(s): 1. Robotic-Assisted Total Hysterectomy 2. Bilateral salpingectomy Surgeon: Pietro Suárez MD Application Spec: Catarina Stern CSA Anesthesia: RODNEY Block and general endotracheal intubation EBL: Less than 100 mL's Findings: A 12 week size myomatous uterus with normal tubes and ovaries bilaterally. Procedure: After the patient's first correctly identified she was prepped and draped in the usual sterile fashion and placed in the dorsolithotomy position. The bladder was first catheterized using Loaiza catheter and the speculum was pl aced in the vagina and the anterior lip of the cervix was grasped using a single-tooth tenaculum, and the medium Vesicare cup was placed. The tenaculum and speculum was then removed from the vagina and attention was then turned to the abdomen. The skin knife was used to make a small incision approximately 5 cm above the umbilicus through which a 12 mm trocar was placed under direct visualization. After adequate amount of abdominal insufflation visualization of the pelvic organs found the uterus to be enlarged and the tubes and ovaries were normal bilaterally. A right and left paramedian incision was made through which the 8 mm trochars were placed under direct visualization and a 5 mm trocar was placed in the right lower quadrant. The patient was then placed in steep Trendelenburg positioning and the robot was docked on the patient's left side. After all the robotic ports were connected and adequate functioning of the robotic arms were tested the surgeon then proceeded to the console to begin the hysterectomy. First the left round ligament was grasped, cauterized and cut, the left utero- ovarian ligaments were grasped, cauterized and cut, and the left fallopian tube also grasped, cauterized and cut along the mesosalpinx, thus freeing the left ovary from the left uterine sidewall. The same procedure was performed on the right. The right round ligament was grasped, cauterized and cut, the right utero-ovarian ligaments were grasped, cauterized and cut, and the right fallopian tube also grasped, cauterized and cut along the mesosalpinx, thus freeing the right ovary from the right uterine sidewall. The bladder flap was taken down anteriorly and the uterine vessels were grasped, cauterized and cut bilaterally. The cardinal ligaments were sequentially grasped, cauterized and cut down to the level of the uterosacral ligaments. At this time the posterior colpotomy was performed over the Vcare cup, and the cervix was circumscribed beginning posteriorly and meeting anteriorly until the cervix was freed. The cervix and uterus was then removed through the vagina and sent to pathology. The vaginal cuff was then closed using 2-0 Vloc suture in a running fashion. Irrigation was then performed and after good hemostasis was achieved the procedure was considered complete. The Tisseel sealant was then sprayed across the vaginal cuff site, and after excellent hemostasis was assured Interceed was placed across the vaginal cuff site. All instruments were then removed from the abdominal cavity. And each incision was closed using 0 Vicryl suture in a [id number] configuration on the fascia followed by 4-0 Monocryl suture in a sub-cuticular fashion on the skin. Each incision was also infiltrated using 0.5% Marcaine solution. The vaginal pack was removed. The patient tolerated the procedure well and was transported to the recovery room in stable condition.
[2018-12-15] MEDS ORDERED: PHENERGAN PR PRN (13:23)
[2018-12-15] MEDS ORDERED: MILK OF MAGNESIA PO PRN (13:23)
[2018-12-15] MEDS ORDERED: PERCOCET 5/325 PO PRN (13:23)
[2018-12-15] MEDS ORDERED: NORCO 5/325 PO PRN (13:23)
[2018-12-15] MEDS: DILAUDID IV PRN ×4 (13:30→20:38)
[2018-12-15] MEDS ORDERED: DILAUDID ONE ×2 (13:31→13:58)
[2018-12-15] MEDS ORDERED: ZOFRAN IV PRN (13:34)
[2018-12-15] MEDS ORDERED: TORADOL IV SCH (14:00)
[2018-12-15] MEDS ORDERED: SUBLIMAZE IV PRN (16:07)
--- NOTE | 2018-12-15 16:10 | Anesthesia Day of Surgery ---
Anesthesia Day of Surgery - Day of Surgery Patient Examined: Yes Patient H&P Reviewed: Yes Patient is NPO: Yes Beta Blockers: No Cardiac Clearance: No Pulmonary Clearance: No Qamar's Test: N/A
[2018-12-15] MEDS: ANCEF/NS 1 GM/50 ML 1 GM/50 ML BAG IV SCH (17:39)
[2018-12-15] MEDS: TORADOL IV SCH ×2 (18:34→23:10)
[2018-12-15] MEDS: ZOFRAN IV PRN (20:38)
[2018-12-15] MEDS: D5LR 1,000 ML IV SCH (22:39)
[2018-12-15] MEDS: COLACE PO SCH (22:41)
[2018-12-16] MEDS: ANCEF/NS 1 GM/50 ML 1 GM/50 ML BAG IV SCH (01:32)
[2018-12-16] MEDS: D5LR 1,000 ML IV SCH (05:25)
[2018-12-16] MEDS: TORADOL IV SCH (05:25)
[2018-12-16 06:17] LABS: Hematocrit 29.7 % (30.3-42.9); Hemoglobin 9.5 gm/dl (10.1-14.3)
[2018-12-16] MEDS: COLACE PO SCH (09:04)
[2018-12-16] MEDS: ZOFRAN IV PRN (09:14)
--- NOTE | 2018-12-16 09:36 | Progress Note ---
Assessment and Plan - Patient Problems (1) Uterine fibroid Onset Date: 12/15/18 Current Visit: Yes Status: Resolved Qualifiers: Uterine leiomyoma location: intramural and submucous Qualified Code(s): D25.1 - Intramural leiomyoma of uterus; D25.0 - Submucous leiomyoma of uterus (2) Menorrhagia with irregular cycle Onset Date: 12/15/18 Current Visit: Yes Status: Resolved (3) Status post robot-assisted surgical procedure Onset Date: 12/16/18 Current Visit: Yes Status: Resolved Plan to address problem: A: S/P RATH - POD #1 Doing well Asymptomatic anemia - stable P: May go home today. Subjective - Subjective Date of service: 12/16/18 Principal diagnosis: s/p RATH - POD#1 Interval history: Patient is s/p a Robotic-Assisted Total Hysterectomy with bilateral salpingectomy, and feeling well. She is tolerating a liquid diet without nausea or vomiting, ambulating and voiding without difficulty. Patient reports: appetite normal, voiding normally, pain well controlled, flatus, ambulating normally, no dizzy ambulation, no nauseated Objective - Vital Signs Latest vital signs: Vital Signs Temp Pulse Resp BP BP Pulse Ox 12/16/18 08:05 98.0 F 64 18 115/73 99 12/16/18 06:25 98.5 F 92 H 20 107/72 96 12/16/18 00:50 98.3 F 83 20 102/60 97 12/15/18 20:50 98.3 F 99 H 20 125/74 96 12/15/18 16:26 22 12/15/18 14:40 98.5 F 60 20 126/82 98 12/15/18 14:38 59 L 97 12/15/18 14:15 86 14 117/75 100 12/15/18 14:00 59 L 14 118/76 100 12/15/18 13:45 97.0 F L 59 L 18 136/80 100 12/15/18 13:30 67 20 140/80 100 12/15/18 13:15 73 20 142/96 100 12/15/18 13:10 63 18 130/81 100 12/15/18 13:05 70 18 127/77 100 12/15/18 13:02 97.0 F L 78 16 131/84 100 Intake and Output 02/12/16/18 12/16/18 22:59 06:59 14:59 Intake Total 260 1085.833 240 Output Total 400 700 600 Balance -140 385.833 -360 Intake: IV 50 845.833 ANCEF/NS 1 GM/50 ML 1 gm 50 In 50 ml @ 100 mls/hr IV Q8H JOSE ANTONIO Rx#:[id number] D5lr 1,000 ml @ 125 mls/ 845.833 hr IV DIRECT JOSE ANTONIO Rx#: [id number] Oral 210 240 240 Output: Urine 400 700 600 Indwelling Catheter 400 700 600 Other: Total, Intake Amount 210 240 240 Total, Output Amount 400 700 600 Voiding Method Indwelling Catheter - Exam Abdomen: Present: normal appearance, soft Extremities: Present: normal Incision: Present: normal, dry, intact - Labs Labs: Abnormal lab results 12/16/18 Range/Units 06:06 Hgb 9.5 L (10.1-14.3) gm/dl Hct 29.7 L (30.3-42.9) % Laboratory Tests 12/11/18 12/11/18 12/15/18 09:40 09:40 09:30 WBC 3.8 L RBC 3.76 Hgb 9.8 L Hct 29.3 L MCV 78 L MCH 26 L MCHC 34 RDW 17.2 H Plt Count 323 Lymph % (Auto) 41.9 H Holt % (Auto) 6.9 Eos % (Auto) 2.2 Baso % (Auto) 1.3 Lymph # 1.6 Holt # 0.3 Eos # 0.1 Baso # 0.0 Seg Neutrophils % 47.7 Seg Neutrophils # 1.8 HCG, Qual Negative Blood Type O POSITIVE Antibody Screen Negative 12/16/18 06:06 WBC RBC Hgb 9.5 L Hct 29.7 L MCV MCH MCHC RDW Plt Count Lymph % (Auto) Holt % (Auto) Eos % (Auto) Baso % (Auto) Lymph # Holt # Eos # Baso # Seg Neutrophils % Seg Neutrophils # HCG, Qual Blood Type Antibody Screen
--- NOTE | 2018-12-16 10:29 | Discharge Summary ---
Providers - Providers Date of Admission: 12/15/18 13:23 Date of discharge: 12/16/18 Attending physician: REYNALDO CULVER [facility] Reason for admission: other (Symptomatic uterine fibroids; Menorrhagia) Procedure: other (Robotic Assisted Total Hysterectomy with Bilateral Salpingectomy) Incision: normal, dry, intact Other procedures: none complications: none Discharge diagnosis: other (s/p RATH ) Hospital course: Patient is s/p a Robotic-Assisted Total Hysterectomy with bilateral salpingectomy, and feeling well. She is tolerating a liquid diet without nausea or vomiting, ambulating and voiding without difficulty. Condition at discharge: Good Disposition: DC- TO HOME OR SELFCARE - Discharge Diagnoses (1) Uterine fibroid Status: Resolved Qualifiers: Uterine leiomyoma location: intramural and submucous Qualified Code(s): D25.1 - Intramural leiomyoma of uterus; D25.0 - Submucous leiomyoma of uterus (2) Menorrhagia with irregular cycle Status: Resolved (3) Status post robot-assisted surgical procedure Status: Resolved Plan - Discharge Medications Prescriptions: Ferrous Sulfate [Feosol 325 MG tab] 325 mg PO BID #60 tablet HYDROcodone/APAP 5-325 [[place] 5-325 mg TAB] 1 each PO Q6HR PRN #30 tablet PRN Reason: Pain, Moderate (4-6) Ibuprofen [Motrin] 800 mg PO Q8HR PRN #30 tablet PRN Reason: Pain, Mild (1-3) - Provider Discharge Summary Activity: routine, no sex for 6 weeks, no heavy lifting 4 weeks, no strenuous exercise Diet: routine Instructions: routine Additional instructions: [] Smoking cessation referral if applicable(refer to patient education folder for contact #) [] Refer to [facility] Booklet Call your doctor immediately for: * Fever > 100.5 * Heavy vaginal bleeding ( >1 pad per hour) * Severe persistent headache * Shortness of breath * Reddened, hot, painful area to leg or breast * Drainage or odor from incision. * Keep incision clean and dry at all times and follow doctor's instructions regarding bathing/showering - Follow up plan Follow up: MARIAELENA MCGOVERN MD [Primary Care Provider] - 7 Days REYNALDO CULVER MD [Staff Physician] - 14 Days
[2018-12-16 13:11] VITALS: BP 118/74
== END 2018-12-16 14:30 | disposition home or self-care (01) ==
LOC: OR 08:33 → OB 13:23
PROVIDERS: ADMIT Obstetrics & Gynecology; ATTEND Obstetrics & Gynecology
DX: D25.9 Leiomyoma of uterus, unspecified (principal); N93.9 Abnormal uterine and vaginal bleeding, unspecified; D64.9 Anemia, unspecified
CPT/HCPCS: 36415; 58571; 64450; 84703; 85014; 85018; 85025; 86850; 86900; 86901; 88307; 96365; 96366; 96375; 96376; A4217; C9250; G0378; J0330; J0690; J1100; J1170; J1885; J2250; J2405; J2704; J2710; J3010; J7120; J7121; S2900

== ENCOUNTER 2019-01-01 08:04 | Emergency (ER) | payer MEDICARE ==
[2019-01-01] MEDS ORDERED: ASPIRIN PO ONE (08:23)
[2019-01-01 08:45] LABS: Basophils % (Auto) 0.9 % (0.0-1.8); Eosinophils # (Auto) 0.1 K/mm3 (0.0-0.4); Eosinophils % (Auto) 2.5 % (0.0-4.3); Hemoglobin 10.3 gm/dl (10.1-14.3); Lymphocytes # (Auto) 1.9 K/mm3 (1.2-5.4); Lymphocytes % (Auto) 41.8 % (13.4-35.0); Mean Corpuscular HGB Conc 32 % (30-34); Mean Corpuscular Volume 80 fl (79-97); Monocytes # (Auto) 0.3 K/mm3 (0.0-0.8); Monocytes % (Auto) 7.6 % (0.0-7.3); Platelet Count 356 K/mm3 (140-440); Red Cell Distribution Width 17.5 % (13.2-15.2)
[2019-01-01 08:52] LABS: BUN/Creatinine Ratio 15; Blood Urea Nitrogen 6 mg/dL (7-17); Calcium 8.7 mg/dL (8.4-10.2); Hemolysis Index 2
--- NOTE | 2019-01-01 09:54 | XRay Report ---
ROUTINE CHEST, TWO VIEWS: HISTORY: chest pain. The trachea, heart, mediastinal contour, lung marshall and bony thorax are unremarkable. No significant change since 02/05/18. IMPRESSION: Unremarkable chest x-ray.
[2019-01-01] MEDS ORDERED: TESSALON PERLES PO ONE (11:40)
[2019-01-01] MEDS ORDERED: ZOFRAN IV ONE ×2 (11:40→14:12)
[2019-01-01] MEDS ORDERED: TORADOL IV ONE (11:40)
[2019-01-01] MEDS ORDERED: MORPHINE IV ONE ×2 (11:40→14:12)
--- NOTE | 2019-01-01 11:54 | Emergency Department Report ---
ED General Adult HPI - General Chief complaint: Chest Pain Stated complaint: ABD/CHEST PAIN Time Seen by Provider: 01/01/19 11:29 Source: patient Mode of arrival: Ambulatory Limitations: No Limitations - History of Present Illness Initial comments: 33-year-old female with a past medical history hypertension, kidney stones, bipolar disorder , appendectomy, gastric bypass, and hysterectomy/salpingectomy 2 weeks ago presents to the Hospital complaining of cough, chest pain, and abdominal pain. Patient complains of cough productive of yellow sputum 2 days. Has associated sternal and chest wall pain associated with coughing. Also worse with palpation and movement. Patient denies fever, sick contacts, wheezing, shortness of breath, calf tenderness, leg edema, history of PE/DVT. Patient also complains of left lower abdominal pain for the past 2 days. She has had residual pain since the surgery 2 weeks ago and now exacerbated since coughing has occurred. Pain is intermittent, worse with palpation, movement, and coughing. She denies dysuria or hematuria. 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 Pietro Suárez performed recent surgery Severity scale (0 -10): 10 - Related Data Home Medications Medication Instructions Recorded Confirmed Last Taken FLUoxetine HCL [Prozac] 40 mg PO DAILY 02/22/14 12/15/18 12/14/18 Previous Rx's Medication Instructions Recorded Last Taken Type Ferrous Sulfate [Feosol 325 MG tab] 325 mg PO BID #60 tablet 12/16/18 Unknown Rx Azithromycin [Zithromax Z-ADAN] 1 dose PO DAILY 5 Days tab 01/01/19 Unknown Rx Benzonatate [Tessalon Perles] 100 mg PO Q8HR PRN #30 capsule 01/01/19 Unknown Rx HYDROcodone/APAP 5-325 [Tram 1 each PO Q6HR PRN #100 tablet 01/01/19 Unknown Rx 5-325 mg TAB] Ibuprofen [Motrin 800 MG tab] 800 mg PO Q8HR PRN #30 tablet 01/01/19 Unknown Rx Promethazine [Phenergan TAB] 25 mg PO Q6HR PRN #20 tab 01/01/19 Unknown Rx Allergies Allergy/AdvReac Type Severity Reaction Status Date / Time Milk Containing Products Allergy Vomiting Verified 12/09/18 14:34 ED Review of Systems ROS: Stated complaint: ABD/CHEST PAIN Other details as noted in HPI Comment: All other systems reviewed and negative ED Past Medical Hx - Past Medical History Previous Medical History?: Yes Hx Hypertension: Yes Hx Congestive Heart Failure: No Hx Diabetes: No Hx Kidney Stones: Yes Hx Psychiatric Treatment: Yes (bipolar) Hx Asthma: No Hx COPD: No - Surgical History Past Surgical History?: Yes Hx Appendectomy: Yes Additional Surgical History: Gastric bypass 2014. Hysterectomy/salpingectomy 2019. Intestinal mass removal - Social History Smoking Status: Never Smoker Substance Use Type: None - Medications Home Medications: Home Medications Medication Instructions Recorded Confirmed Last Taken Type FLUoxetine HCL [Prozac] 40 mg PO DAILY 02/22/14 12/15/18 12/14/18 History Ferrous Sulfate [Feosol 325 MG tab] 325 mg PO BID #60 tablet 12/16/18 Unknown Rx Azithromycin [Zithromax Z-ADAN] 1 dose PO DAILY 5 Days tab 01/01/19 Unknown Rx Benzonatate [Tessalon Perles] 100 mg PO Q8HR PRN #30 capsule 01/01/19 Unknown Rx HYDROcodone/APAP 5-325 [Tram 1 each PO Q6HR PRN #100 tablet 01/01/19 Unknown Rx 5-325 mg TAB] Ibuprofen [Motrin 800 MG tab] 800 mg PO Q8HR PRN #30 tablet 01/01/19 Unknown Rx Promethazine [Phenergan TAB] 25 mg PO Q6HR PRN #20 tab 01/01/19 Unknown Rx ED Physical Exam - General Limitations: No Limitations - Other Other exam information: General: No limitations, patient is alert in no acute distress Head exam: Atraumatic, normocephalic Eyes exam: Normal appearance, nonicteric sclera ENT: Moist mucous membrane, normal oropharynx Neck exam: Normal inspection, full range of motion, no meningismus nontender Respiratory exam: Clear to auscultation bilateral, no wheezes, rales, crackles Cardiovascular: Normal rate and rhythm, normal heart sounds Abdomen: Soft, nondistended, midline vertical surgical scar, normal bowel sounds, left lower quadrant and left mid abdominal tenderness palpation without rebound or guarding Extremity: Full range of motion normal inspection no deformity Back: Normal Inspection, full range of motion, no tenderness Neurologic: Alert, oriented x3, cranial nerves intact, no motor or sensory deficit Psychiatric: normal affect, normal mood Skin: Warm, dry, intact ED Course Vital Signs 03/08/19 03/08/19 08:08 14:25 Pulse Rate 96 H Respiratory 22 18 Rate Blood Pressure 126/88 O2 Sat by Pulse 100 Oximetry - Consultations Consultation #1: 01/01/19 15:05 Case was discussed with Dr. Pietro Suárez. Patient may follow up for outpatient ultrasound regarding left ovary. He was informed and patient will be treated for bronchitis/infection and given symptomatic treatment for pain. Follow-up will be encouraged ED Medical Decision Making - Lab Data Result diagrams: 01/01/19 08:29 01/01/19 08:29 Lab Results 01/01/19 01/01/19 01/01/19 Range/Units 08:29 08:29 11:18 WBC 4.6 (4.5-11.0) K/mm3 RBC 4.00 (3.65-5.03) M/mm3 Hgb 10.3 (10.1-14.3) gm/dl Hct 32.0 (30.3-42.9) % MCV 80 (79-97) fl MCH 26 L (28-32) pg MCHC 32 (30-34) % RDW 17.5 H (13.2-15.2) % Plt Count 356 (140-440) K/mm3 Lymph % (Auto) 41.8 H (13.4-35.0) % [place] % (Auto) 7.6 H (0.0-7.3) % Eos % (Auto) 2.5 (0.0-4.3) % Baso % (Auto) 0.9 (0.0-1.8) % Lymph # 1.9 (1.2-5.4) K/mm3 [place] # 0.3 (0.0-0.8) K/mm3 Eos # 0.1 (0.0-0.4) K/mm3 Baso # 0.0 (0.0-0.1) K/mm3 Seg Neutrophils % 47.2 (40.0-70.0) % Seg Neutrophils # 2.2 (1.8-7.7) K/mm3 Sodium 137 (137-145) mmol/L Potassium 3.7 (3.6-5.0) mmol/L Chloride 101.6 (98-107) mmol/L Carbon Dioxide 24 (22-30) mmol/L Anion Gap 15 mmol/L BUN 6 L (7-17) mg/dL Creatinine 0.4 L (0.7-1.2) mg/dL Estimated GFR > 60 ml/min BUN/Creatinine Ratio 15 % Glucose 77 (65-100) mg/dL Calcium 8.7 (8.4-10.2) mg/dL Troponin T < 0.010 < 0.010 (0.00-0.029) ng/mL Urine Color (Yellow) Urine Turbidity (Clear) Urine pH (5.0-7.0) Ur Specific [place] (1.003-1.030) Urine Protein (Negative) mg/dL Urine Glucose (UA) (Negative) mg/dL Urine Ketones (Negative) mg/dL Urine Blood (Negative) Urine Nitrite (Negative) Urine Bilirubin (Negative) Urine Urobilinogen (<2.0) mg/dL Ur Leukocyte Esterase (Negative) Urine WBC (Auto) (0.0-6.0) /HPF Urine RBC (Auto) (0.0-6.0) /HPF U Epithel Cells (Auto) (0-13.0) /HPF Urine Mucus /HPF 01/01/19 Range/Units 13:30 WBC (4.5-11.0) K/mm3 RBC (3.65-5.03) M/mm3 Hgb (10.1-14.3) gm/dl Hct (30.3-42.9) % MCV (79-97) fl MCH (28-32) pg MCHC (30-34) % RDW (13.2-15.2) % Plt Count (140-440) K/mm3 Lymph % (Auto) (13.4-35.0) % [place] % (Auto) (0.0-7.3) % Eos % (Auto) (0.0-4.3) % Baso % (Auto) (0.0-1.8) % Lymph # (1.2-5.4) K/mm3 [place] # (0.0-0.8) K/mm3 Eos # (0.0-0.4) K/mm3 Baso # (0.0-0.1) K/mm3 Seg Neutrophils % (40.0-70.0) % Seg Neutrophils # (1.8-7.7) K/mm3 Sodium (137-145) mmol/L Potassium (3.6-5.0) mmol/L Chloride (98-107) mmol/L Carbon Dioxide (22-30) mmol/L Anion Gap mmol/L BUN (7-17) mg/dL Creatinine (0.7-1.2) mg/dL Estimated GFR ml/min BUN/Creatinine Ratio % Glucose (65-100) mg/dL Calcium (8.4-10.2) mg/dL Troponin T (0.00-0.029) ng/mL Urine Color Yellow (Yellow) Urine Turbidity Clear (Clear) Urine pH 5.0 (5.0-7.0) Ur Specific [place] 1.039 H (1.003-1.030) Urine Protein <15 mg/dl (Negative) mg/dL Urine Glucose (UA) Neg (Negative) mg/dL Urine Ketones Neg (Negative) mg/dL Urine Blood Neg (Negative) Urine Nitrite Neg (Negative) Urine Bilirubin Neg (Negative) Urine Urobilinogen < 2.0 (<2.0) mg/dL Ur Leukocyte Esterase Neg (Negative) Urine WBC (Auto) 1.0 (0.0-6.0) /HPF Urine RBC (Auto) 3.0 (0.0-6.0) /HPF U Epithel Cells (Auto) 2.0 (0-13.0) /HPF Urine Mucus 3+ /HPF - Radiology Data Radiology results: report reviewed ROUTINE CHEST, TWO VIEWS: HISTORY: chest pain. The trachea, heart, mediastinal contour, lung marshall and bony thorax are unremarkable. No significant change since 02/05/18. IMPRESSION: Unremarkable chest x-ray. PROCEDURE: CT ABDOMEN PELVIS W CON TECHNIQUE: Computerized axial tomography of the abdomen and pelvis was performed after the IV injection of iodinated nonionic contrast. Coronal and sagittal reconstructed linda ging provided. CT DOSE LENGTH PRODUCT: 3034.12 mGy-cm. HISTORY: LLQ pain, recent hysterectomy and salpingectomy COMPARISONS: None currently available. FINDINGS: Abdomen: Lung bases and images of the heart are grossly unremarkable. Liver: Decreased heterogeneous attenuation may represent hepatocellular disease, fatty infiltration, or cirrhosis. No suspicious lesion. Spleen: 2 low-density lesions in the posterior spleen measure 0.8 and 0.4 cm. Kidneys: Symmetrical cortical enhancement. No suspicious lesions. No hydronephrosis. Stomach: Post surgical changes. Otherwise unremarkable. Gallbladder, pancreas, and adrenals are unremarkable. No aneurysm. No dissection. No significant atherosclerotic disease. IVC is unremarkable. There is no periaortic or retroperitoneal adenopathy or mass. Postsurgical changes in the large and small bowel loops which partial resection. [id number]-blqzpwhd stool in the remaining colon without wall thickening or stranding. Sigmoid diverticulosis. Small bowel loops are otherwise grossly unremarkable. No obstructive pattern. No air-fluid levels. No free air. No free fluid. Mesentery is unremarkable. Pelvis: Oval heterogeneous low-attenuation lesion in the left pelvis series 3:295 measures 4.3 x 2.8 cm and may represent a left ovary with cysts. Prior hysterectomy. Bladder: Unremarkable. There is no pelvic mass or adenopathy. No abscess. No obvious hematoma. Inguinal regions are unremarkable. Bones: No suspicious osseous lesions on this limited examination of the skeleton. Metastatic disease better evaluated with bone scan. Degenerative changes are in the spine. IMPRESSION: * Comparison with prior will be made as an addendum once requested prior images and report are provided. * Heterogeneous oval lesion in the left pelvis may represent a left ovary with cysts. Differential diagnosis includes enlarged lymph node and mass. Correlation with pelvic ultrasound is recommended. * Postsurgical changes in the stomach, small bowel loops, and colon. No obstructive pattern. * Probable subcentimeter cysts or hemangiomas in the spleen. * Fatty liver. - Medical Decision Making Patient felt better with treatment. Will be treated symptomatically and with antibiotic for bronchitis and chest wall pain. I suspect patient has abdominal wall strain as well and feeding secondary to left ovarian cyst. Outpatient follow up PMD and REFUGE WORKER exam is encouraged - Differential Diagnosis pneumonia, bronchitis, URI, muscle strain, postop infection Critical Care Time: No Critical care attestation.: If time is entered above; I have spent that time in minutes in the direct care of this critically ill patient, excluding procedure time. ED Disposition Clinical Impression: Acute bronchitis, Chest wall muscle strain, Abdominal pain, Left ovarian cyst Disposition: - TO HOME OR SELFCARE Is pt being admited?: No Does the pt Need Aspirin: No Condition: Stable Instructions: Acute Bronchitis (ED), Ovarian Cyst (ED), Thoracic Pain (ED) Additional Instructions: Take the medication as prescribed. Follow up with your doctor or the clinic/doctor provided. Return if symptoms worsen as indicated by your discharge instructions Prescriptions: Ibuprofen [Motrin 800 MG tab] 800 mg PO Q8HR PRN #30 tablet PRN Reason: Pain, Mild (1-3) HYDROcodone/APAP 5-325 [Tram 5-325 mg TAB] 1 each PO Q6HR PRN #100 tablet PRN Reason: Pain, Moderate (4-6) Promethazine [Phenergan TAB] 25 mg PO Q6HR PRN #20 tab PRN Reason: Nausea Benzonatate [Tessalon Perles] 100 mg PO Q8HR PRN #30 capsule PRN Reason: Cough Azithromycin [Zithromax Z-ADAN] 1 dose PO DAILY 5 Days tab Referrals: ORIANA TAYLOR MD [Primary Care Provider] - 3-5 Days PIETRO SUÁREZ MD [Staff Physician] - 3-5 Days Time of Disposition: 15:14
[2019-01-01 13:44] LABS: Bilirubin,Urine NEG (Negative); Blood,Urine NEG (Negative); Color,Urine Yellow (Yellow); Mucus,Urine 3+ /HPF; Protein,Urine <15 mg/dL mg/dL (Negative); Urobilinogen,Urine < 2.0 mg/dL (<2.0)
[2019-01-01] MEDS ORDERED: NACL 0.9% 500 ML 500 ML IV ONE (14:12)
--- NOTE | 2019-01-01 14:45 | Cat Scan Report ---
PROCEDURE: CT ABDOMEN PELVIS W CON TECHNIQUE: Computerized axial tomography of the abdomen and pelvis was performed after the IV injecti on of iodinated nonionic contrast. Coronal and sagittal reconstructed imaging provided. CT DOSE LENGTH PRODUCT: 3034.12 mGy-cm. HISTORY: LLQ pain, recent hysterectomy and salpingectomy COMPARISONS: None currently available. FINDINGS: Abdomen: Lung bases and images of the heart are grossly unremarkable. Liver: Decreased heterogeneous attenuation may represent hepatocellular disease, fatty infiltration, or cirrhosis. No suspicious lesion. Spleen: 2 low-density lesions in the posterior spleen measure 0.8 and 0.4 cm. Kidneys: Symmetrical cortical enhancement. No suspicious lesions. No hydronephrosis. Stomach: Post surgical changes. Otherwise unremarkable. Gallbladder, pancreas, and adrenals are unremarkable. No aneurysm. No dissection. No significant atherosclerotic disease. IVC is unremarkable. There is no periaortic or retroperitoneal adenopathy or mass. Postsurgical changes in the large and small bowel loops which partial resection. Dhpu-jx-adurpaeh sto ol in the remaining colon without wall thickening or stranding. Sigmoid diverticulosis. Small bowel loops are otherwise grossly unremarkable. No obstructive pattern. No air-fluid levels. No free air. No free fluid. Mesentery is unremarkable. Pelvis: Oval heterogeneous low-attenuation lesion in the left pelvis series 3:295 measures 4.3 x 2.8 cm and m ay represent a left ovary with cysts. Prior hysterectomy. Bladder: Unremarkable. There is no pelvic mass or adenopathy. No abscess. No obvious hematoma. Inguinal regions are unremarkable. Bones: No suspicious osseous lesions on this limited examination of the skeleton. Metastatic disease better evaluated with bone scan. Degenerative changes are in the spine. IMPRESSION: * Comparison with prior will be made as an addendum once requested prior images and report are provi ded. * Heterogeneous oval lesion in the left pelvis may represent a left ovary with cysts. Differential d iagnosis includes enlarged lymph node and mass. Correlation with pelvic ultrasound is recommended. * Postsurgical changes in the stomach, small bowel loops, and colon. No obstructive pattern. * Probable subcentimeter cysts or hemangiomas in the spleen. * Fatty liver. This document is electronically signed by Julio Cesar Escobedo MD., January 01 2019 02:43:31 PM ET
[2019-01-01 15:56] VITALS: BP 130/84
== END 2019-01-01 15:56 | disposition home or self-care (01) ==
LOC: ED 08:04
DX: S29.011A Strain of muscle and tendon of front wall of thorax, initial encounter (principal); J20.9 Acute bronchitis, unspecified; N83.202 Unspecified ovarian cyst, left side; I10 Essential (primary) hypertension; F31.9 Bipolar disorder, unspecified; Z91.011 Allergy to milk products; Z87.442 Personal history of urinary calculi; Z90.49 Acquired absence of other specified parts of digestive tract; Z98.84 Bariatric surgery status; Z90.710 Acquired absence of both cervix and uterus; Z90.721 Acquired absence of ovaries, unilateral; X58.XXXA Exposure to other specified factors, initial encounter; Y93.89 Activity, other specified; Y92.89 Other specified places as the place of occurrence of the external cause; Y99.8 Other external cause status
CPT/HCPCS: 36415; 71046; 74177; 80048; 81001; 84484; 85025; 93005; 93010; 96374; 96375; 96376; 99285; J1885; J2270; J2405; J7040; Q9967

== ENCOUNTER 2019-01-13 18:47 | Emergency (ER) | payer MEDICARE ==
[2019-01-13 18:58] VITALS: BP 139/83
[2019-01-13 20:02] LABS: Bacteria,Urine 1+ /HPF (Negative); Bilirubin,Urine NEG (Negative); Blood,Urine NEG (Negative); Color,Urine Yellow (Yellow); Mucus,Urine FEW /HPF; Protein,Urine <15 mg/dL mg/dL (Negative); Urobilinogen,Urine < 2.0 mg/dL (<2.0)
== END 2019-01-13 21:42 | disposition left against medical advice (07) ==
LOC: ED 18:47
DX: R10.9 Unspecified abdominal pain (principal); Z53.21 Procedure and treatment not carried out due to patient leaving prior to being seen by health care provider
CPT/HCPCS: 81001

== ENCOUNTER 2019-08-28 20:00 | Observation (INO) | payer MEDICARE ==
[2019-08-28] MEDS ORDERED: ASPIRIN 325 MG TAB PO ONE (20:33)
--- NOTE | 2019-08-28 20:35 | Event Note ---
ED Screening Note Date of service: 08/28/19 Time: 20:30 ED Screening Note: This is a 34 y.o. F. that presents to the chest pain for 3-4 days. Reports squeezing pain that is increasing. + dizziness and palpitations with movement. PMH of Bipolar, DM2 & HTN on lisinopril/HCTZ This initial assessment/diagnostic orders/clinical plan/treatment(s) is/are subject to change based on patients health status, clinical progression and re- assessment by fellow clinical providers in the ED. Further treatment and workup at subsequent clinical providers discretion. Patient/guardian urged not to elope from the ED as their condition may be serious if not clinically assessed and managed. Initial orders include: Labs, EKG, and CXR
--- NOTE | 2019-08-28 20:59 | XRay Report ---
CHEST 1 VIEW INDICATION: MAIN: Chest Pain FOR 3 DAY . COMPARISON: Chest x-ray from 02/05/2018 FINDINGS: Support devices: None. Heart: Within normal limits. Lungs/Pleura: No acute air space or interstitial disease. Additional findings: None. IMPRESSION: 1. No acute findings. Signer Name: Kieran May MD Signed: 08/28/2019 8:55 PM Workstation Name: [id number]
[2019-08-28 21:03] LABS: Basophils # (Auto) 0.1 K/mm3 (0.0-0.1); Basophils % (Auto) 0.8 % (0.0-1.8); Eosinophils # (Auto) 0.2 K/mm3 (0.0-0.4); Eosinophils % (Auto) 2.7 % (0.0-4.3); Hematocrit 35.7 % (30.3-42.9); Hemoglobin 11.5 gm/dl (10.1-14.3); Lymphocytes # (Auto) 2.8 K/mm3 (1.2-5.4); Lymphocytes % (Auto) 42.6 % (13.4-35.0); Mean Corpuscular HGB Conc 32 % (30-34); Mean Corpuscular Volume 85 fl (79-97); Monocytes # (Auto) 0.5 K/mm3 (0.0-0.8); Platelet Count 296 K/mm3 (140-440); Red Cell Distribution Width 16.6 % (13.2-15.2)
[2019-08-28 21:24] LABS: BUN/Creatinine Ratio 12; Blood Urea Nitrogen 7 mg/dL (7-17); Calcium 8.9 mg/dL (8.4-10.2); Hemolysis Index 19
--- NOTE | 2019-08-28 23:21 | Emergency Department Report ---
ED Chest Pain HPI - General Chief Complaint: Chest Pain Stated Complaint: CP Time Seen by Provider: 08/28/19 20:30 Source: patient, family Mode of arrival: Ambulatory Limitations: No Limitations - History of Present Illness Initial Comments: Patient here reports that she has chest pain to left chest with difficulty breathing and nausea 4 days. She says she has a history of high blood pressure and her blood pressure in triage is 160/100 and she says she took her lisinopril this morning. She said this is been on and off for 3 days and pain is 5 out of 10 and feels a pressure to mid sternal area at present but earlier it was left chest pain does 9 out of 10. Denies any radiation to arm. Denies any back pain. Denies any recent surgery, convalescent., Long distance travel for greater than 4 hours by car or airplane. Denies any history of blood clots in her legs or chest. Patient denies any history of heart disease she does have a history of bipolar, kidney stones, gastric bypass, appendectomy. No medication taken for pain per patient. MD Complaint: chest pain, other (difficulty breathing) Onset/Timin -: days(s) Onset: during rest Pain Location: substernal Pain Radiation: none Severity: moderate Severity scale (0 -10): 5 Quality: pressure Consistency: intermittent Improves With: nothing Worsens With: nothing Context: other (unknown) re: nausea, dyspnea. denies: vomting, diaphoresis, sense of impending doom Other Symptoms: denies: cough, fever, syncope, rash, acid taste in mouth, leg swelling, palpitations, burping Treatments Prior to Arrival: none Aspirin use within the Past 7 Days: (0) No - Related Data On Oral Contraceptives: No Home Medications Medication Instructions Recorded Confirmed Last Taken FLUoxetine HCL [Prozac] 40 mg PO DAILY 02/22/14 12/15/18 12/14/18 Previous Rx's Medication Instructions Recorded Last Taken Type Ferrous Sulfate [Feosol 325 MG tab] 325 mg PO BID #60 tablet 12/16/18 Unknown Rx Azithromycin [Zithromax Z-ADAN] 1 dose PO DAILY 5 Days tab 01/01/19 Unknown Rx Benzonatate [Tessalon Perles] 100 mg PO Q8HR PRN #30 capsule 01/01/19 Unknown Rx HYDROcodone/APAP 5-325 [[place] 1 each PO Q6HR PRN #100 tablet 01/01/19 Unknown Rx 5-325 mg TAB] Ibuprofen [Motrin 800 MG tab] 800 mg PO Q8HR PRN #30 tablet 01/01/19 Unknown Rx Promethazine [Phenergan] 25 mg PO Q6HR PRN #20 tab 01/01/19 Unknown Rx Allergies Allergy/AdvReac Type Severity Reaction Status Date / Time Milk Containing Products Allergy Vomiting Verified 12/09/18 14:34 Heart Score - HEART Score History: Slightly suspicious EKG: Normal Age: < 45 Risk factors: 1-2 risk factors Troponin: < normal limit HEART Score: 1 - Critical Actions Critical Actions: 0-3 pts:0.9-1.7%risk of adverse cardiac event.Candidate for discharge ED Review of Systems ROS: Stated complaint: CP Other details as noted in HPI Constitutional: denies: chills, fever, weakness ENT: denies: throat pain, congestion Respiratory: shortness of breath, SOB at rest. denies: cough, wheezing Cardiovascular: chest pain. denies: palpitations, edema, syncope Musculoskeletal: denies: back pain, joint swelling, arthralgia, myalgia Skin: denies: rash Neurological: denies: headache, numbness, paresthesias, abnormal gait, vertigo Psychiatric: denies: anxiety ED Past Medical Hx - Past Medical History Previous Medical History?: Yes Hx Hypertension: Yes Hx Congestive Heart Failure: No Hx Diabetes: No Hx Kidney Stones: Yes Hx Psychiatric Treatment: Yes (bipolar) Hx Asthma: No Hx COPD: No - Surgical History Past Surgical History?: Yes Hx Appendectomy: Yes Additional Surgical History: Gastric bypass 2014. Hysterectomy/salpingectomy 2019. Intestinal mass removal - Family History Family history: hypertension - Social History Smoking Status: Never Smoker Substance Use Type: None - Medications Home Medications: Home Medications Medication Instructions Recorded Confirmed Last Taken Type FLUoxetine HCL [Prozac] 40 mg PO DAILY 02/22/14 12/15/18 12/14/18 History Ferrous Sulfate [Feosol 325 MG tab] 325 mg PO BID #60 tablet 12/16/18 Unknown Rx Azithromycin [Zithromax Z-ADAN] 1 dose PO DAILY 5 Days tab 01/01/19 Unknown Rx Benzonatate [Tessalon Perles] 100 mg PO Q8HR PRN #30 capsule 01/01/19 Unknown Rx HYDROcodone/APAP 5-325 [[place] 1 each PO Q6HR PRN #100 tablet 01/01/19 Unknown Rx 5-325 mg TAB] Ibuprofen [Motrin 800 MG tab] 800 mg PO Q8HR PRN #30 tablet 01/01/19 Unknown Rx Promethazine [Phenergan] 25 mg PO Q6HR PRN #20 tab 01/01/19 Unknown Rx ED Physical Exam - General Limitations: No Limitations General appearance: alert, in no apparent distress - Head Head exam: Present: atraumatic, normocephalic, normal inspection - Eye Eye exam: Present: normal appearance, PERRL, EOMI Pupils: Present: normal accommodation - ENT ENT exam: Present: normal exam, normal orophraynx, mucous membranes moist - Neck Neck exam: Present: normal inspection, full ROM. Absent: tenderness, lymphadenopathy - Respiratory Respiratory exam: Present: normal lung sounds bilaterally. Absent: respiratory distress, wheezes, rales, rhonchi, stridor, chest wall tenderness, accessory muscle use, decreased breath sounds, prolonged expiratory - Cardiovascular Cardiovascular Exam: Present: regular rate, normal rhythm, normal heart sounds - GI/Abdominal GI/Abdominal exam: Present: soft, normal bowel sounds. Absent: distended, tenderness, guarding, rebound, rigid, organomegaly - Extremities Exam Extremities exam: Present: normal inspection, full ROM, normal capillary refill, other (No cce. + 2 pulses in all extremities, no neurovascular compromise). Absent: tenderness, pedal edema, joint swelling, calf tenderness - Back Exam Back exam: Present: normal inspection, full ROM, other (ambulates without any difficulties). Absent: tenderness, CVA tenderness (R), CVA tenderness (L), muscle spasm, paraspinal tenderness, vertebral tenderness, rash noted - Neurological Exam Neurological exam: Present: alert, oriented X3, normal gait - Psychiatric Psychiatric exam: Present: normal affect, normal mood - Skin Skin exam: Present: warm, dry, intact, normal color. Absent: rash ED Course Vital Signs 08/28/19 08/29/19 08/29/19 20:16 01:34 EDT 01:57 EST Temperature 98.6 F 18 F L 98.8 F Pulse Rate 91 H 92 H Respiratory 18 18 20 Rate Blood Pressure 165/100 Blood Pressure 165/98 118/79 [Right] O2 Sat by Pulse 100 98 100 Oximetry 08/29/19 03:16 Temperature Pulse Rate 67 Respiratory 17 Rate Blood Pressure Blood Pressure 112/69 [Right] O2 Sat by Pulse 98 Oximetry - Reevaluation(s) Reevaluation #1: Collaborated with Dr. Plata with patient presentation and patient will be admitted for evaluation of chest pain 08/29/19 00:55 Patient received aspirin 325 mg by mouth per nurse. D-dimer is elevated so she went to CT scanner for CTA of the chest. Troponin 2 is negative, chest x-ray negative. CBC and chemistry stable. EKG times to sinus rhythm in the 80s. Reevaluation #2: 08/29/2019 02:30 Patient received morphine 4 mg IV and Zofran 8 mg IV and she received aspirin s urgeon 325 mg by mouth while she was in emergency room for treatment for chest pain Patient had CT of the chest which shows no acute processes. Her laboratory results are stable troponin are stable EKG stable. She was seen by hospitalist and he accepted admission and patient awaiting Hospital room. Dr. Guardado saw and evaluated patient. She is aware for CT scan and other lab results. Reevaluation #3: 08/29/19 04:31 Patient remained stable and in no acute distress. She has no chest pain at present and she is awaiting discharge to the floor. 08/29/19 04:31 TJ score - Tj Score Age > 65: (0) No Aspirin use within the Past 7 Days: (0) No 3 or more CAD Risk Factors: (0) No 2 or more Angina events in past 24 hrs: (0) No Known CAD with more than 50% Stenosis: (0) No Elevated Cardiac Markers: (0) No ST Deviation Greater than 0.5mm: (0) No TJ Score: 0 ED Medical Decision Making - Lab Data Result diagrams: 08/29/19 02:36 08/29/19 02:36 Lab Results 08/28/19 08/28/19 08/28/19 Range/Units 20:37 20:37 22:49 WBC 6.7 (4.5-11.0) K/mm3 RBC 4.20 (3.65-5.03) M/mm3 Hgb 11.5 (10.1-14.3) gm/dl Hct 35.7 (30.3-42.9) % MCV 85 (79-97) fl MCH 27 L (28-32) pg MCHC 32 (30-34) % RDW 16.6 H (13.2-15.2) % Plt Count 296 (140-440) K/mm3 Lymph % (Auto) 42.6 H (13.4-35.0) % Lynn % (Auto) 7.0 (0.0-7.3) % Eos % (Auto) 2.7 (0.0-4.3) % Baso % (Auto) 0.8 (0.0-1.8) % Lymph # 2.8 (1.2-5.4) K/mm3 Lynn # 0.5 (0.0-0.8) K/mm3 Eos # 0.2 (0.0-0.4) K/mm3 Baso # 0.1 (0.0-0.1) K/mm3 Seg Neutrophils % 46.9 (40.0-70.0) % Seg Neutrophils # 3.1 (1.8-7.7) K/mm3 PT (12.2-14.9) Sec. INR (0.87-1.13) APTT (24.2-36.6) Sec. D-Dimer (0-234) ng/mlDDU Sodium 140 (137-145) mmol/L Potassium 3.6 (3.6-5.0) mmol/L Chloride 104.0 (98-107) mmol/L Carbon Dioxide 24 (22-30) mmol/L Anion Gap 16 mmol/L BUN 7 (7-17) mg/dL Creatinine 0.6 L (0.7-1.2) mg/dL Estimated GFR > 60 ml/min BUN/Creatinine Ratio 12 % Glucose 78 (65-100) mg/dL Calcium 8.9 (8.4-10.2) mg/dL Troponin T < 0.010 < 0.010 (0.00-0.029) ng/mL Triglycerides (2-149) mg/dL Cholesterol (50-199) mg/dL LDL Cholesterol Direct (50-130) mg/dL HDL Cholesterol (40-59) mg/dL Cholesterol/HDL Ratio % HCG, Qual (Negative) 08/28/19 08/28/19 08/29/19 Range/Units 23:18 23:45 00:53 WBC (4.5-11.0) K/mm3 RBC (3.65-5.03) M/mm3 Hgb (10.1-14.3) gm/dl Hct (30.3-42.9) % MCV (79-97) fl MCH (28-32) pg MCHC (30-34) % RDW (13.2-15.2) % Plt Count (140-440) K/mm3 Lymph % (Auto) (13.4-35.0) % Lynn % (Auto) (0.0-7.3) % Eos % (Auto) (0.0-4.3) % Baso % (Auto) (0.0-1.8) % Lymph # (1.2-5.4) K/mm3 Lynn # (0.0-0.8) K/mm3 Eos # (0.0-0.4) K/mm3 Baso # (0.0-0.1) K/mm3 Seg Neutrophils % (40.0-70.0) % Seg Neutrophils # (1.8-7.7) K/mm3 PT (12.2-14.9) Sec. INR (0.87-1.13) APTT (24.2-36.6) Sec. D-Dimer 476.80 H (0-234) ng/mlDDU Sodium (137-145) mmol/L Potassium (3.6-5.0) mmol/L Chloride (98-107) mmol/L Carbon Dioxide (22-30) mmol/L Anion Gap mmol/L BUN (7-17) mg/dL Creatinine (0.7-1.2) mg/dL Estimated GFR ml/min BUN/Creatinine Ratio % Glucose (65-100) mg/dL Calcium (8.4-10.2) mg/dL Troponin T < 0.010 (0.00-0.029) ng/mL Triglycerides (2-149) mg/dL Cholesterol (50-199) mg/dL LDL Cholesterol Direct (50-130) mg/dL HDL Cholesterol (40-59) mg/dL Cholesterol/HDL Ratio % HCG, Qual Negative (Negative) 08/29/19 08/29/19 08/29/19 Range/Units 00:53 02:36 02:36 WBC 6.5 (4.5-11.0) K/mm3 RBC 4.07 (3.65-5.03) M/mm3 Hgb 11.3 (10.1-14.3) gm/dl Hct 34.6 (30.3-42.9) % MCV 85 (79-97) fl MCH 28 (28-32) pg MCHC 33 (30-34) % RDW 16.8 H (13.2-15.2) % Plt Count 278 (140-440) K/mm3 Lymph % (Auto) 47.1 H (13.4-35.0) % Lynn % (Auto) 7.2 (0.0-7.3) % Eos % (Auto) 3.0 (0.0-4.3) % Baso % (Auto) 0.9 (0.0-1.8) % Lymph # 3.1 (1.2-5.4) K/mm3 Lynn # 0.5 (0.0-0.8) K/mm3 Eos # 0.2 (0.0-0.4) K/mm3 Baso # 0.1 (0.0-0.1) K/mm3 Seg Neutrophils % 41.8 (40.0-70.0) % Seg Neutrophils # 2.7 (1.8-7.7) K/mm3 PT 14.0 (12.2-14.9) Sec. INR 1.09 (0.87-1.13) APTT 27.8 (24.2-36.6) Sec. D-Dimer (0-234) ng/mlDDU Sodium 137 (137-145) mmol/L Potassium 3.5 L (3.6-5.0) mmol/L Chloride 100.8 (98-107) mmol/L Carbon Dioxide 23 (22-30) mmol/L Anion Gap 17 mmol/L BUN 6 L (7-17) mg/dL Creatinine 0.5 L (0.7-1.2) mg/dL Estimated GFR > 60 ml/min BUN/Creatinine Ratio 12 % Glucose 85 (65-100) mg/dL Calcium 8.9 (8.4-10.2) mg/dL Troponin T (0.00-0.029) ng/mL Triglycerides 23 (2-149) mg/dL Cholesterol 115 (50-199) mg/dL LDL Cholesterol Direct 61 (50-130) mg/dL HDL Cholesterol 56 (40-59) mg/dL Cholesterol/HDL Ratio 2.05 % HCG, Qual (Negative) - EKG Data -: EKG Interpreted by Me (attending physician) EKG shows normal: sinus rhythm Rate: normal - EKG Data Interpretation: no acute changes - Radiology Data Radiology results: report reviewed Patient had chest x-ray and CTA chest this is dictated per radiologist and report reviewed by myself. Please see details below Findings [address] [address] XRay Report Signed Patient: DARIAN EATON MR#: [id number] : 1985 Acct:[id number] Age/Sex: 34 / F ADM Date: 08/28/19 Loc: ED Attending Dr: Ordering Physician: EVELYN REDMOND Date of Service: 08/28/19 Procedure(s): XR chest 1V ap Accession Number(s): [id number] cc: EVELYN REDMOND Fluoro Time In Minutes: CHEST 1 VIEW INDICATION: MAIN: Chest Pain FOR 3 DAY . COMPARISON: Chest x-ray from 02/05/2018 FINDINGS: Support devices: None. Heart: Within normal limits. Lungs/Pleura: No acute air space or interstitial disease. Additional findings: None. IMPRESSION: 1. No acute findings. Signer Name: Kieran May MD Signed: 08/28/2019 8:55 PM Workstation Name: [id number] Transcribed By: JW Dictated By: Kieran May MD Electronically Authenticated By: Kieran May MD Signed Date/Time: 08/28/192054 DD/ 54 TD/TT: Findings [address] [address] Cat Scan Report Signed Patient: DARIAN EATON MR#: [id number] : 1985 Acct:[id number] Age/Sex: 34 / F ADM Date: 08/28/19 Loc: ED Attending Dr: Ordering Physician: PAMELLA MARION Date of Service: 08/29/19 Procedure(s): CT angio chest Accession Number(s): [id number] cc: PAMELLA AMRION CTA CHEST WITH CONTRAST INDICATION / CLINICAL INFORMATION: elevated d dimer with cp and diff breathing. TECHNIQUE: Axial CT images were obtained through the chest after injection of 100 MLO Omnipaque 350 IV contrast. 3 plane MIP and/or 3D reconstructions were produced. All CT scans at this location are performed using CT dose reduction for ALARA by means of automated exposure control. COMPARISON: None available. FINDINGS: PULMONARY ARTERIES: No pulmonary emboli. THORACIC AORTA: No significant abnormality. HEART: No significant abnormality. CORONARY ARTERIES: No significant calcification. MEDIASTINUM / HUGH: No significant abnormality. PLEURA: No pleural effusion. No pneumothorax. LUNGS: No acute air space or interstitial disease. ADDITIONAL FINDINGS: None. UPPER ABDOMEN: No acute findings. SKELETAL STRUCTURES: No significant osseous abnormality. IMPRESSION: 1. No CT evidence for pulmonary embolism. 2. No acute findings. Signer Name: Phyllis Bell MD Signed: 08/29/2019 1:29 AM Workstation Name: [id number] Transcribed By: DT Dictated By: Johnny Bell MD Electronically Authenticated By: Johnny Bell MD Signed Date/Time: 08/29/19128 DD/ 4 TD/TT: - Medical Decision Making This is a 34-year-old female here for chest pain and difficulty breathing and she was worked up with troponin 2 and be negative, EKG 2 is stable, CBC and CMP stable, d-dimer was elevated and patient had CTA chest which showed no acute findings. Prior to CT she had chest x-ray which were is negative. This her dictated by radiologist and report reviewed by myself. I spoke with Dr. PLATA in regard did not patient's presentation and clinical findings and it was decided the patient will be admitted for chest pain and be evaluated. Hospitalist saw patient and admitted patient. Her vital signs are stable she is afebrile and she is currently not having any chest pain. She received morphine 4 mg and Z ofran 8 mg IV for chest pain along with aspirin 325 mg by mouth. She is currently resting quietly awaiting bed. Patient TJ score 0, heart score 1 - Differential Diagnosis ACS, PE, PNA, Pleurisy, costochondritis Critical care attestation.: If time is entered above; I have spent that time in minutes in the direct care of this critically ill patient, excluding procedure time. ED Disposition Clinical Impression: Shortness of breath Chest pain Qualifiers: Chest pain type: unspecified Qualified Code(s): R07.9 - Chest pain, unspecified Disposition: 09 OP ADMIT IP TO THIS HOSP Is pt being admited?: Yes Does the pt Need Aspirin: No Condition: Stable Instructions: Chest Pain (ED) Referrals: PRIMARY CARE, [Primary Care Provider] - 3-5 Days
[2019-08-29] MEDS ORDERED: ASPIRIN 325 MG TAB ONE (00:26)
[2019-08-29] MEDS ORDERED: ONDANSETRON 4 MG/2 ML INJ IV ONE (00:54)
[2019-08-29] MEDS ORDERED: MORPHINE 4 MG/1 ML INJ IV ONE (00:54)
--- NOTE | 2019-08-29 01:34 | Cat Scan Report ---
CTA CHEST WITH CONTRAST INDICATION / CLINICAL INFORMATION: elevated d dimer with cp and diff breathing. TECHNIQUE: Axial CT images were obtained through the chest after injection of 100 MLO Omnipaque 350 IV contrast. 3 plane MIP and/or 3D reconstructions were produced. All CT scans at this location are performed usi ng CT dose reduction for ALARA by means of automated exposure control. COMPARISON: None available. FINDINGS: PULMONARY ARTERIES: No pulmonary emboli. THORACIC AORTA: No significant abnormality. HEART: No significant abnormality. CORONARY ARTERIES: No significant calcification. MEDIASTINUM / HUGH: No significant abnormality. PLEURA: No pleural effusion. No pneumothorax. LUNGS: No acute air space or interstitial disease. ADDITIONAL FINDINGS: None. UPPER ABDOMEN: No acute findings. SKELETAL STRUCTURES: No significant osseous abnormality. IMPRESSION: 1. No CT evidence for pulmonary embolism. 2. No acute findings. Signer Name: Phyllis Bell MD Signed: 08/29/2019 1:29 AM Workstation Name: [id number]
[2019-08-29 01:36] LABS: INR 1.09 (0.87-1.13)
[2019-08-29 01:37] LABS: Partial Thromboplastin Time 27.8 Sec. (24.2-36.6)
[2019-08-29 03:05] LABS: Basophils # (Auto) 0.1 K/mm3 (0.0-0.1); Basophils % (Auto) 0.9 % (0.0-1.8); Eosinophils # (Auto) 0.2 K/mm3 (0.0-0.4); Hematocrit 34.6 % (30.3-42.9); Hemoglobin 11.3 gm/dl (10.1-14.3); Lymphocytes # (Auto) 3.1 K/mm3 (1.2-5.4); Lymphocytes % (Auto) 47.1 % (13.4-35.0); Mean Corpuscular HGB Conc 33 % (30-34); Mean Corpuscular Volume 85 fl (79-97); Monocytes # (Auto) 0.5 K/mm3 (0.0-0.8); Monocytes % (Auto) 7.2 % (0.0-7.3); Platelet Count 278 K/mm3 (140-440); Red Blood Count 4.07 M/mm3 (3.65-5.03); Red Cell Distribution Width 16.8 % (13.2-15.2)
[2019-08-29 03:31] LABS: BUN/Creatinine Ratio 12; Blood Urea Nitrogen 6 mg/dL (7-17); Calcium 8.9 mg/dL (8.4-10.2); Chol/HDL Ratio 2.05 %; HDL Cholesterol 56 mg/dL (40-59); Hemolysis Index 3; LDL Cholesterol,Direct 61 mg/dL (50-130)
[2019-08-29] MEDS: MORPHINE 2 MG/1 ML INJ IV PRN ×2 (04:27→11:50)
--- NOTE | 2019-08-29 05:25 | History and Physical Report ---
History of Present Illness Date of examination: 08/29/19 Chief complaint: Chest pain History of present illness: 34-year-old female with known history of hypertension presenting to the emergenc y room today complaining of chest pain. Chest pain is said to be left-sided and occasionally in the midsternal area. Pain is squeezing in nature. No known relieving or exacerbating factors. She denies any fever no chills, no nausea vomiting. Upon arrival in the emergency room her work-up including EKG was essentially within normal limits however d-dimer was elevated and her subsequent CT angiog raisa done was also within normal limits. Past History Past Medical History: hypertension Medications and Allergies Allergies Allergy/AdvReac Type Severity Reaction Status Date / Time Milk Containing Products Allergy Vomiting Verified 12/09/18 14:34 Home Medications Medication Instructions Recorded Confirmed Last Taken Type FLUoxetine HCL [Prozac] 40 mg PO DAILY 02/22/14 12/15/18 12/14/18 History Ferrous Sulfate [Feosol 325 MG tab] 325 mg PO BID #60 tablet 12/16/18 Unknown Rx Azithromycin [Zithromax Z-ADAN] 1 dose PO DAILY 5 Days tab 01/01/19 Unknown Rx Benzonatate [Tessalon Perles] 100 mg PO Q8HR PRN #30 capsule 01/01/19 Unknown Rx HYDROcodone/APAP 5-325 [[place] 1 each PO Q6HR PRN #100 tablet 01/01/19 Unknown Rx 5-325 mg TAB] Ibuprofen [Motrin 800 MG tab] 800 mg PO Q8HR PRN #30 tablet 01/01/19 Unknown Rx Promethazine [Phenergan] 25 mg PO Q6HR PRN #20 tab 01/01/19 Unknown Rx Active Meds: Active Medications Aspirin (Ecotrin) 325 mg PO QDAY JOSE ANTONIO Morphine Sulfate (Morphine) 2 mg IV Q5MIN PRN PRN Reason: Chest Pain unrelieved by NTG Last Admin: 08/29/19 04:27 Dose: 2 mg Documented by: Sodium Chloride (Sodium Chloride Flush Syringe 10 Ml) 10 ml IV PRN PRN PRN Reason: LINE FLUSH Review of Systems Cardiovascular: chest pain Exam - Constitutional Vitals: Temp Pulse Resp BP Pulse Ox 98.8 F 67 17 112/69 98 08/29/19 01:57 EST 08/29/19 03:16 08/29/19 03:16 08/29/19 03:16 08/29/19 03:16 General appearance: Present: no acute distress, well-nourished - EENT Eyes: Present: PERRL, EOM intact ENT: hearing intact, clear oral mucosa, dentition normal - Neck Neck: Present: supple, normal ROM - Respiratory Respiratory effort: normal Respiratory: bilateral: CTA - Cardiovascular Rhythm: regular Heart Sounds: Present: S1 & S2 - Extremities Extremities: no ischemia, No edema Peripheral Pulses: within normal limits - Abdominal General gastrointestinal: Present: soft, non-tender, non-distended - Integumentary Integumentary: Present: clear, warm, dry - Musculoskeletal Musculoskeletal: strength equal bilaterally - Neurologic Neurologic: CNII-XII intact, moves all extremities Results - Labs CBC & Chem 7: 08/29/19 02:36 08/29/19 02:36 Labs: Abnormal lab results 08/28/19 08/28/19 08/28/19 Range/Units 20:37 20:37 23:45 MCH 27 L (28-32) pg RDW 16.6 H (13.2-15.2) % Lymph % (Auto) 42.6 H (13.4-35.0) % D-Dimer 476.80 H (0-234) ng/mlDDU Potassium (3.6-5.0) mmol/L BUN (7-17) mg/dL Creatinine 0.6 L (0.7-1.2) mg/dL 08/29/19 08/29/19 Range/Units 02:36 02:36 MCH (28-32) pg RDW 16.8 H (13.2-15.2) % Lymph % (Auto) 47.1 H (13.4-35.0) % D-Dimer (0-234) ng/mlDDU Potassium 3.5 L (3.6-5.0) mmol/L BUN 6 L (7-17) mg/dL Creatinine 0.5 L (0.7-1.2) mg/dL Assessment and Plan - Patient Problems (1) Chest pain Current Visit: Yes Status: Acute Qualifiers: Chest pain type: unspecified Qualified Code(s): R07.9 - Chest pain, unspecified Plan to address problem: Patient will be admitted and placed on telemetry. Will trend cardiac enzymes. Patient is placed on aspirin daily, sublingual nitroglycerin as needed and also on IV morphine. We will request cardiology evaluation and recommendation. (2) Hypertension Current Visit: Yes Status: Acute Plan to address problem: Will resume routine home medications and monitor vital signs closely.
[2019-08-29] MEDS ORDERED: ACETAMINOPHEN 325 MG TAB PO PRN (08:53)
[2019-08-29] MEDS ORDERED: ONDANSETRON 4 MG/2 ML INJ IV PRN (08:53)
[2019-08-29] MEDS ORDERED: BENZONATATE 100 MG CAP PO PRN (08:55)
[2019-08-29] MEDS ORDERED: PROMETHAZINE 25 MG TAB PO PRN (08:55)
[2019-08-29] MEDS ORDERED: oxyCODONE /ACETAMINOPHEN 5-325MG TAB ONE (09:57)
[2019-08-29] MEDS: oxyCODONE /ACETAMINOPHEN 5-325MG TAB PO PRN ×2 (09:59→15:38)
[2019-08-29] MEDS ORDERED: LISINOPRIL 10 MG TAB PO SCH (10:00)
[2019-08-29] MEDS ORDERED: NON-FORMULARY EACH (Fluoxetine Hcl [Prozac] 40 MG) PO SCH (10:00)
[2019-08-29] MEDS ORDERED: FERROUS SULFATE 325 MG TAB PO SCH (10:00)
--- NOTE | 2019-08-29 10:14 | Vascular Lab Report ---
DUPLEX DOPPLER BILATERAL LOWER EXTREMITY VEINS, 08/29/2019 INDICATION: Bilateral leg pain. TECHNIQUE: Duplex doppler imaging was performed through the veins of both lower extremities using venous ronaldo graham and other maneuvers. COMPARISON: None FINDINGS: Right Common Femoral vein: Negative. Right Superficial Femoral vein: Negative. Right Popliteal vein: Negative. Right Calf veins: Negative. Left Common Femoral vein: Negative. Left Superficial Femoral vein: Negative. Left Popliteal vein: Negative. Left Calf veins: Negative. Additional findings: None. IMPRESSION: 1. No sonographic evidence for DVT in either lower extremity. Signer Name: Kristina Stephens MD Signed: 08/29/2019 10:09 AM Workstation Name: [id number]
[2019-08-29] MEDS: D5W/0.45% NACL 1,000 ML IV SCH (11:20)
[2019-08-29] MEDS: PANTOPRAZOLE 20 MG TAB PO SCH (11:21)
[2019-08-29] MEDS: FLUoxetine 20 MG CAP PO SCH (11:21)
[2019-08-29] MEDS: hydrALAZINE 10 MG TAB PO SCH (11:22)
[2019-08-29] MEDS: ASPIRIN EC 325 MG TAB PO SCH (11:24)
[2019-08-29] MEDS: hydroCHLOROthiazide 12.5 MG CAP PO SCH (12:05)
[2019-08-29] MEDS: LISINOPRIL 20 MG TAB PO SCH (12:05)
[2019-08-29] MEDS ORDERED: PROCHLORPERAZINE EDISYLATE 10 MG/2 ML VIAL IV PRN (12:06)
--- NOTE | 2019-08-29 14:23 | Consultation ---
History of Present Illness Consult date: 08/29/19 Requesting physician: ROSI HAMPTON Consult reason: chest pain History of present illness: Ms. Jones is a 34 y/o female with a medical history significant for hypertension and anxiety who presented to the ED with chest pain that began two days ago. She is unknown to our practice. She describes the pain as left-sided, non-radiating and "squeezing" that persists intermittently. She also endorses at least one episode of accompanying SOB as well as nausea. An EKG was negative for acute findings and troponins were negative x3. A d- dimer was positive, but CTA negative for PE and BLE U/S negative as well. The patient has been seen in conjunction with Dr. Mcallister, who agrees with the assessment and plan. Past History Past Medical History: hypertension, other (anxiety) Medications and Allergies Allergies Allergy/AdvReac Type Severity Reaction Status Date / Time Milk Containing Products Allergy Vomiting Verified 12/09/18 14:34 Home Medications Medication Instructions Recorded Confirmed Last Taken Type FLUoxetine HCL [Prozac] 40 mg PO DAILY 02/22/14 08/29/19 12/14/18 History Ferrous Sulfate [Feosol 325 MG tab] 325 mg PO BID #60 tablet 12/16/18 08/29/19 Unknown Rx Promethazine [Phenergan] 25 mg PO Q6HR PRN #20 tab 01/01/19 08/29/19 Unknown Rx Lisinopril/Hydrochlorothiazide 1 each PO DAILY 08/29/19 08/29/19 Unknown History [Zestoretic 20-12.5 mg] OLANzapine [ZyPREXA] 5 mg PO DAILY 08/29/19 08/29/19 Unknown History hydrALAZINE [Apresoline TAB] 10 mg PO DAILY 08/29/19 08/29/19 Unknown History Active Meds: Active Medications Acetaminophen (Tylenol) 650 mg PO Q4H PRN PRN Reason: Pain MILD(1-3)/Fever >100.5/POLLACK Albuterol/Ipratropium (Duoneb *Not For Prn Use*) 1 ampul IH Q6HRT JOSE ANTONIO Aspirin (Ecotrin) 325 mg PO QDAY JOSE ANTONIO Last Admin: 08/29/19 11:24 Dose: 325 mg Documented by: Benzonatate (Tessalon Perles) 100 mg PO Q8HR PRN PRN Reason: Cough Fluoxetine HCl (Prozac) 40 mg PO QDAY [facility] Last Admin: 08/29/19 11:21 Dose: 40 mg Documented by: Hydralazine HCl (Apresoline) 10 mg PO DAILY [facility] Last Admin: 08/29/19 11:22 Dose: Not Given Documented by: Hydrochlorothiazide (Hctz) 12.5 mg PO QDAY [facility] Last Admin: 08/29/19 12:05 Dose: Not Given Documented by: Dextrose/Sodium Chloride (D5/0.45ns) 1,000 mls @ 75 mls/hr IV DIRECT [facility] Last Admin: 08/29/19 11:20 Dose: 75 mls/hr Documented by: Lisinopril (Zestril) 20 mg PO QDAY [facility] Last Admin: 08/29/19 12:05 Dose: Not Given Documented by: Morphine Sulfate (Morphine) 2 mg IV Q5MIN PRN PRN Reason: Chest Pain unrelieved by NTG Last Admin: 08/29/19 11:50 Dose: 2 mg Documented by: Olanzapine (Zyprexa) 5 mg PO DAILY [facility] Last Admin: 08/29/19 13:29 Dose: 5 mg Documented by: Ondansetron HCl (Zofran) 4 mg IV Q8H PRN PRN Reason: Nausea And Vomiting Last Admin: 08/29/19 13:29 Dose: 4 mg Documented by: Oxycodone/Acetaminophen (Percocet 5/325) 1 tab PO Q6H PRN PRN Reason: Pain, Moderate (4-6) Last Admin: 08/29/19 09:59 Dose: 1 tab Documented by: Pantoprazole Sodium (Protonix) 20 mg PO QDAY [facility] Last Admin: 08/29/19 11:21 Dose: 20 mg Documented by: Prochlorperazine Edisylate (Compazine) 5 mg IV Q6H PRN PRN Reason: Nausea And Vomiting Sodium Chloride (Sodium Chloride Flush Syringe 10 Ml) 10 ml IV PRN PRN PRN Reason: LINE FLUSH Sodium Chloride (Sodium Chloride Flush Syringe 10 Ml) 10 ml IV BID [facility] Last Admin: 08/29/19 11:21 Dose: 10 ml Documented by: Sodium Chloride (Sodium Chloride Flush Syringe 10 Ml) 10 ml IV PRN PRN PRN Reason: LINE FLUSH Review of Systems All systems: negative Cardiovascular: chest pain (intermittent) Gastrointestinal: nausea Physical Examination Vital Signs Temp Pulse Resp BP Pulse Ox 98.6 F 91 H 18 165/100 100 08/28/19 20:16 08/28/19 20:16 08/28/19 20:16 08/28/19 20:16 08/28/19 20:16 General appearance: no acute distress HEENT: Positive: PERRL Neck: Positive: neck supple Cardiac: Positive: Reg Rate and Rhythm Lungs: Positive: Normal Exam Neuro: Positive: Grossly Intact Abdomen: Positive: Unremarkable Female genitourinary: deferred Skin: Positive: Clear Musculoskeletal: Normal Range of Motion Extremities: Present: normal Results 08/29/19 02:36 08/29/19 02:36 Coagulation 08/29/19 Range/Units 00:53 PT 14.0 (12.2-14.9) Sec. INR 1.09 (0.87-1.13) APTT 27.8 (24.2-36.6) Sec. Lipids 08/29/19 Range/Units 02:36 Triglycerides 23 (2-149) mg/dL Cholesterol 115 (50-199) mg/dL HDL Cholesterol 56 (40-59) mg/dL Cholesterol/HDL Ratio 2.05 % CBC 08/28/19 08/29/19 Range/Units 20:37 02:36 WBC 6.7 6.5 (4.5-11.0) K/mm3 RBC 4.20 4.07 (3.65-5.03) M/mm3 Hgb 11.5 11.3 (10.1-14.3) gm/dl Hct 35.7 34.6 (30.3-42.9) % Plt Count 296 278 (140-440) K/mm3 Lymph # 2.8 3.1 (1.2-5.4) K/mm3 [place] # 0.5 0.5 (0.0-0.8) K/mm3 Eos # 0.2 0.2 (0.0-0.4) K/mm3 Baso # 0.1 0.1 (0.0-0.1) K/mm3 Comprehensive Metabolic Panel 08/28/19 08/29/19 Range/Units 20:37 02:36 Sodium 140 137 (137-145) mmol/L Potassium 3.6 3.5 L (3.6-5.0) mmol/L Chloride 104.0 100.8 (98-107) mmol/L Carbon Dioxide 24 23 (22-30) mmol/L BUN 7 6 L (7-17) mg/dL Creatinine 0.6 L 0.5 L (0.7-1.2) mg/dL Glucose 78 85 (65-100) mg/dL Calcium 8.9 8.9 (8.4-10.2) mg/dL - Imaging and Cardiology Echo: pending EKG: report reviewed - EKG Interpretation EKG: sinus rhythm EKG interpretations - Telemetry EKG Rhythm: Sinus Rhythm Assessment and Plan Ms. Jones is a 34 y/o female who presented to the ED with left-sided chest pain. She was notably hypertensive on presentation, which has since resolved. Will obtain echocardiogram and Lexiscan stress test. Further recommendations pending hospital course. - Patient Problems (1) Chest pain Current Visit: Yes Status: Acute Qualifiers: Chest pain type: unspecified Qualified Code(s): R07.9 - Chest pain, unspecified (2) Anxiety Current Visit: Yes Status: Chronic (3) Hypertension Current Visit: Yes Status: Chronic
[2019-08-29] MEDS: IPRATROPIUM/ALBUTEROL SULFATE 3 ML AMPUL.NEB IH SCH ×2 (15:04→19:05)
[2019-08-30] MEDS: D5W/0.45% NACL 1,000 ML IV SCH (00:10)
[2019-08-30] MEDS: oxyCODONE /ACETAMINOPHEN 5-325MG TAB PO PRN ×2 (00:11→08:07)
[2019-08-30] MEDS: IPRATROPIUM/ALBUTEROL SULFATE 3 ML AMPUL.NEB IH SCH ×2 (02:04→10:19)
[2019-08-30 06:32] LABS: Basophils # (Auto) 0.1 K/mm3 (0.0-0.1); Basophils % (Auto) 1.2 % (0.0-1.8); Eosinophils # (Auto) 0.2 K/mm3 (0.0-0.4); Eosinophils % (Auto) 3.5 % (0.0-4.3); Hematocrit 33.1 % (30.3-42.9); Lymphocytes # (Auto) 2.4 K/mm3 (1.2-5.4); Lymphocytes % (Auto) 51.5 % (13.4-35.0); Mean Corpuscular HGB Conc 33 % (30-34); Mean Corpuscular Volume 85 fl (79-97); Monocytes # (Auto) 0.2 K/mm3 (0.0-0.8); Monocytes % (Auto) 4.8 % (0.0-7.3); Platelet Count 269 K/mm3 (140-440); Red Cell Distribution Width 16.6 % (13.2-15.2)
[2019-08-30 06:48] LABS: BUN/Creatinine Ratio 10; Blood Urea Nitrogen 5 mg/dL (7-17); Calcium 8.8 mg/dL (8.4-10.2); Hemolysis Index 14
[2019-08-30] MEDS ORDERED: REGADENOSON 0.4 MG/5 ML INJ IV ONE (07:11)
[2019-08-30] MEDS ORDERED: LISINOPRIL PO SCH (10:00)
[2019-08-30] MEDS ORDERED: HYDROCHLOROTHIAZIDE PO SCH (10:00)
--- NOTE | 2019-08-30 11:24 | Progress Note ---
Assessment and Plan Ms. Jones is a 34 y/o female who presented to the ED with left-sided chest pain. She was notably hypertensive on presentation, which has since resolved. S/p lexiscan MPI stress test this AM which was negative. Currently stable cardiac status. Pt may discharge home from cardiology standpoint. Recommend follow up in our office with Dr. Mcallister within 1-2 weeks of discharge ([phone]). The patient has been seen in conjunction with Dr. Rodriguez who agrees with the assessment and plan of care. - Patient Problems (1) Chest pain Current Visit: Yes Status: Resolved Qualifiers: Chest pain type: unspecified Qualified Code(s): R07.9 - Chest pain, unspecified (2) Anxiety Current Visit: Yes Status: Chronic (3) Hypertension Current Visit: Yes Status: Chronic Subjective Date of service: 08/30/19 Principal diagnosis: cp Interval history: for stress test Objective Last Vital Signs Temp 98.1 F 08/30/19 03:39 Pulse 76 08/30/19 10:16 Resp 18 08/30/19 10:16 BP 128/69 08/30/19 03:39 Pulse Ox 96 08/30/19 03:39 - Physical Examination General: No Apparent Distress HEENT: Positive: PERRL Neck: Positive: neck supple Cardiac: Positive: Reg Rate and Rhythm, S1/S2 Lungs: Positive: Decreased Breath Sounds Neuro: Positive: Grossly Intact Abdomen: Positive: Unremarkable Skin: Positive: Clear Musculoskeletal: Normal Range of Motion Extremities: Present: normal - Labs and Meds CBC 08/30/19 Range/Units 05:59 WBC 4.6 (4.5-11.0) K/mm3 RBC 3.90 (3.65-5.03) M/mm3 Hgb 11.0 (10.1-14.3) gm/dl Hct 33.1 (30.3-42.9) % Plt Count 269 (140-440) K/mm3 Lymph # 2.4 (1.2-5.4) K/mm3 [place] # 0.2 (0.0-0.8) K/mm3 Eos # 0.2 (0.0-0.4) K/mm3 Baso # 0.1 (0.0-0.1) K/mm3 Comprehensive Metabolic Panel 08/30/19 Range/Units 05:59 Sodium 139 (137-145) mmol/L Potassium 4.0 (3.6-5.0) mmol/L Chloride 103.3 (98-107) mmol/L Carbon Dioxide 22 (22-30) mmol/L BUN 5 L (7-17) mg/dL Creatinine 0.5 L (0.7-1.2) mg/dL Glucose 162 H (65-100) mg/dL Calcium 8.8 (8.4-10.2) mg/dL - Imaging and Cardiology EKG: report reviewed Echo: pending
[2019-08-30] MEDS ORDERED: FLU VACC QUAD 2019-20 (3 YR UP)/PF 60 MCG/0.5 ML SYRINGE IM ONE (12:00)
--- NOTE | 2019-08-30 12:02 | Discharge Summary ---
Providers - Providers Date of Admission: 08/29/19 08:53 Attending physician: MICHELLE SOUTH MD 08/29/19 Consult to Cardiac Rehabilitation [CONS] Routine Reason For Exam: Phase I 08/29/19 02:23 Consult to Cardiology [CONS] Routine Consulting Provider: RAMÍREZ RODRIGUEZ Reason For Exam: chest pain Primary care physician: [facility] SERVICER Hospitalization Reason for admission: chest pain Condition: Stable Hospital course: 34-year-old female with known history of hypertension presenting to the emergency room today complaining of chest pain. Chest pain is said to be left- sided and occasionally in the midsternal area. Pain is squeezing in nature. No known relieving or exacerbating factors. She denies any fever no chills, no nausea vomiting. Upon arrival in the emergency room her work-up including EKG was essentially within normal limits however d-dimer was elevated and her subsequent CT angiogram done was also within normal limits. Patient was seen by cardiology and also proceeded for stress test which was negative for Ischemia. He was addressed on issues of hypertension Patient was advised to follow with cardiology outpatient. Assessment Atypical chest pain with underlying anxiety disorder Anxiety disorder Hypertension Disposition: DC-01 TO HOME OR SELFCARE Time spent for discharge: 35 mins Core Measure Documentation - Palliative Care Palliative Care/ Comfort Measures: Not Applicable - Core Measures Any of the following diagnoses?: none Exam - Constitutional Vitals: Temp Pulse Resp BP Pulse Ox 98.1 F 76 18 128/69 96 08/30/19 03:39 08/30/19 10:16 08/30/19 10:16 08/30/19 03:39 08/30/19 03:39 General appearance: Present: no acute distress, well-nourished - EENT Eyes: Present: PERRL, EOM intact ENT: hearing intact, clear oral mucosa - Neck Neck: Present: supple, normal ROM - Respiratory Respiratory effort: normal Respiratory: bilateral: CTA - Cardiovascular Rhythm: regular Heart Sounds: Present: S1 & S2. Absent: systolic murmur - Extremities Extremities: no ischemia, pulses intact, pulses symmetrical, No edema, normal temperature, normal color, Full ROM Peripheral Pulses: within normal limits - Abdominal General gastrointestinal: Present: soft, non-tender, non-distended, normal bowel sounds Female genitourinary: Present: normal - Integumentary Integumentary: Present: clear, warm, dry - Musculoskeletal Musculoskeletal: strength equal bilaterally - Psychiatric Psychiatric: appropriate mood/affect, intact judgment & insight, memory intact, cooperative - Neurologic Neurologic: CNII-XII intact, moves all extremities - Allied Health Allied health notes reviewed: nursing Plan Activity: advance as tolerated, fall precautions Diet: low fat
[2019-08-30 12:33] VITALS: BP 113/63
[2019-08-30] MEDS: hydroCHLOROthiazide 12.5 MG CAP PO SCH (13:19)
[2019-08-30] MEDS: ASPIRIN EC 325 MG TAB PO SCH (13:19)
[2019-08-30] MEDS: hydrALAZINE 10 MG TAB PO SCH (13:19)
[2019-08-30] MEDS: LISINOPRIL 20 MG TAB PO SCH (13:20)
[2019-08-30] MEDS: PANTOPRAZOLE 20 MG TAB PO SCH (13:20)
[2019-08-30] MEDS: FLUoxetine 20 MG CAP PO SCH (13:20)
--- NOTE | 2019-08-30 23:24 | Treadmill Report ---
NUCLEAR CARDIAC IMAGING REPORT INDICATION FOR PROCEDURE: Chest pain. Informed consent was obtained. Vasodilator stress was performed with the intravenous administration of 0.4 mg of Lexiscan per protocol. Rest and stress nuclear cardiac imaging were performed following the intravenous administration of technetium-99m per protocol. Gated SPECT imaging demonstrates a post-stress left ventricular ejection fraction of 78% with normal wall motion. Myocardial perfusion imaging demonstrates no significant cavity change between stress and rest. No significant stress induced perfusion defects are seen. Nuclear cardiac imaging demonstrates grossly normal post-stress left ventricular systolic function with no significant evidence of myocardial ischemia or necrosis. JOB# [id number] ROSA/DEBORAH
== END 2019-08-30 14:00 | disposition home or self-care (01) ==
LOC: ED 20:00 → 4A 08-29 08:53
PROVIDERS: ADMIT Internal Medicine; ATTEND Internal Medicine
DX: R07.89 Other chest pain (principal); R06.02 Shortness of breath; I10 Essential (primary) hypertension; F41.9 Anxiety disorder, unspecified; F31.9 Bipolar disorder, unspecified; Z87.442 Personal history of urinary calculi; Z90.49 Acquired absence of other specified parts of digestive tract; Z98.84 Bariatric surgery status; Z90.710 Acquired absence of both cervix and uterus; Z79.82 Long term (current) use of aspirin; Z79.899 Other long term (current) drug therapy; Z91.011 Allergy to milk products
CPT/HCPCS: 36415; 71045; 71275; 78452; 80048; 80061; 84484; 84703; 85025; 85379; 85610; 85730; 90686; 93005; 93010; 93017; 93970; 94640; 96374; 96375; 96376; 99284; A9502; G0378; J0780; J2270; J2405; J2785; Q0169; Q9967

== ENCOUNTER 2019-09-19 20:28 | Emergency (ER) | payer MEDICARE ==
[2019-09-19 20:40] VITALS: BP 111/58
--- NOTE | 2019-09-19 21:09 | Event Note ---
ED Screening Note ED Screening Note: substernal CP that began last night sharp, stabbing pt states she has experienced this last night +mild SOB PMHx HTN no allergies to meds PSHx hysterectomy This initial assessment/diagnostic orders/clinical plan/treatment(s) is/are subject to change based on patients health status, clinical progression and re- assessment by fellow clinical providers in the ED. Further treatment and workup at subsequent clinical providers discretion. Patient/guardian urged not to elope from the ED as their condition may be serious if not clinically assessed and managed. Initial orders include: CP protocol
== END 2019-09-19 21:25 | disposition left against medical advice (07) ==
LOC: ED 20:28
DX: R07.89 Other chest pain (principal); Z53.21 Procedure and treatment not carried out due to patient leaving prior to being seen by health care provider
CPT/HCPCS: 93005; 93010

== ENCOUNTER 2020-01-05 17:06 | Emergency (ER) | payer MEDICARE ==
--- NOTE | 2020-01-05 18:47 | Emergency Department Report ---
Blank Doc - Documentation Documentation: 34-year-old female that presents with chest pain, sob, and ankle swelling. This initial assessment/diagnostic orders/clinical plan/treatment(s) is/are subject to change based on patient's health status, clinical progression and re- assessment by fellow clinical providers in the ED. Further treatment and workup at subsequent clinical providers discretion. Patient/guardians urged not to elope from the ED as their condition may be serious if not clinically assessed and managed. Initial orders include: 1- Patient sent to [facility] for further evaluation and treatment 2- cardiac workup
[2020-01-05] MEDS ORDERED: ASPIRIN 325 MG TAB PO ONE (19:19)
[2020-01-05 19:31] LABS: Basophils # (Auto) 0.1 K/mm3 (0.0-0.1); Basophils % (Auto) 0.8 % (0.0-1.8); Eosinophils # (Auto) 0.2 K/mm3 (0.0-0.4); Eosinophils % (Auto) 2.5 % (0.0-4.3); Hematocrit 34.8 % (30.3-42.9); Hemoglobin 11.3 gm/dl (10.1-14.3); Lymphocytes % (Auto) 44.7 % (13.4-35.0); Mean Corpuscular HGB Conc 33 % (30-34); Mean Corpuscular Volume 86 fl (79-97); Monocytes # (Auto) 0.4 K/mm3 (0.0-0.8); Monocytes % (Auto) 5.7 % (0.0-7.3); Platelet Count 339 K/mm3 (140-440); Red Blood Count 4.04 M/mm3 (3.65-5.03); Red Cell Distribution Width 14.5 % (13.2-15.2)
[2020-01-05 19:44] LABS: Alanine Aminotransferase 14 units/L (7-56); Albumin 4.4 g/dL (3.9-5); BUN/Creatinine Ratio 12; Blood Urea Nitrogen 6 mg/dL (7-17); Calcium 9.1 mg/dL (8.4-10.2); Hemolysis Index 1
--- NOTE | 2020-01-05 20:14 | XRay Report ---
CHEST 2 VIEWS INDICATION: Chest Pain. COMPARISON: 08/28/2019 FINDINGS: Support devices: None. Heart: Within normal limits. Lungs/pleura: No acute air space or interstitial disease. No pneumothorax. Additional findings: None. IMPRESSION: 1. No acute findings. Signer Name: Kieran May MD Signed: 01/05/2020 8:09 PM Workstation Name: [id number]
--- NOTE | 2020-01-05 20:39 | Cat Scan Report ---
CT HEAD WITHOUT CONTRAST INDICATION / CLINICAL INFORMATION: dizziness. TECHNIQUE: All CT scans at this location are performed using CT dose reduction for ALARA by means of automated e xposure control. COMPARISON: Head CT October 14, 2018 and February 05, 2018. FINDINGS: HEMORRHAGE: No evidence of intracranial hemorrhage or extra-axial fluid collection. EXTRA-AXIAL SPACES: Cortical sulci, sylvian fissures and basilar cisterns have an unremarkable appear ance. VENTRICULAR SYSTEM: The ventricular system is of normal size and configuration. CEREBRAL PARENCHYMA: No areas of abnormal brain parenchymal attenuation are identified. There is no i ndication of recent infarction. MIDLINE SHIFT OR HERNIATION: There is no mass effect. CEREBELLUM / BRAINSTEM: Brainstem and cerebellum have an unremarkable appearance. INTRACRANIAL VESSELS:No abnormalities are identified on this noncontrast head CT. ORBITS: visualized portions of the orbits have an unremarkable appearance. SOFT TISSUES of HEAD: No significant abnormality. CALVARIUM: Evaluation of bone windows reveals no abnormalities. PARANASAL SINUSES / MASTOID AIR CELLS: Paranasal sinuses are free from inflammatory mucosal disease. Mastoid air cells are normally pneumatized. ADDITIONAL FINDINGS: None. IMPRESSION: 1. No abnormality on head CT without contrast. No interval change. Signer Name: Hector Thorpe MD Signed: 01/05/2020 8:34 PM Workstation Name: [id number]
[2020-01-05] MEDS ORDERED: MECLIZINE 25 MG TAB PO ONE (20:46)
[2020-01-05] MEDS ORDERED: SODIUM CHLORIDE 0.9% 1000 ML 1,000 ML IV ONE (20:46)
[2020-01-05] MEDS ORDERED: KETOROLAC 30 MG/1 ML INJ IV ONE (20:46)
[2020-01-05] MEDS ORDERED: dexAMETHasone 20 MG/5 ML VIAL IV ONE (20:46)
--- NOTE | 2020-01-05 23:32 | Emergency Department Report ---
ED General Adult HPI - General Chief complaint: Chest Pain Stated complaint: CHEST PAIN/SOB/SWOLLEN ANKLE Time Seen by Provider: 01/05/20 18:45 Source: patient Mode of arrival: Ambulatory Limitations: No Limitations - History of Present Illness Initial comments: Patient is a 34-year-old -[place] female with a history of hypertension who presents to the ED with complaint of acute onset persistent left arm and left leg tingling sensation, headache, chest pain and dizziness for the last 2 days intermittently. Patient states that in the last 12 hours the left arm and left leg tingling sensation as well as dizziness have persisted and gotten w orse. Patient denies shortness of breath, fever, chills, cough, vision changes, syncope, bilateral upper and lower extremity weakness, abdominal pain, nausea, vomiting, dysuria, urinary frequency and urgency or seizures. MD Complaint: dizziness; left arm and leg tingling, headache and chest pain -: Sudden, days(s) (2) Location: head (Dizziness and headache), chest (Chest pain), upper extremity (Left arm tingling), lower extremity (Left leg tingling) Radiation: non-radiation Severity scale (0 -10): 8 Quality: aching, sharp Consistency: intermittent Improves with: none Worsens with: none Associated Symptoms: denies other symptoms, chest pain, headaches. denies: confusion, cough, diaphoresis, fever/chills, loss of appetite, malaise, rash, se izure, shortness of breath, syncope, weakness, other Treatments Prior to Arrival: none - Related Data Home Medications Medication Instructions Recorded Confirmed Last Taken FLUoxetine HCL [PROzac] 40 mg PO DAILY 02/22/14 08/29/19 12/14/18 Lisinopril/Hydrochlorothiazide 1 each PO DAILY 08/29/19 08/29/19 Unknown [Zestoretic 20-12.5 mg] OLANzapine [ZyPREXA] 5 mg PO DAILY 08/29/19 08/29/19 Unknown hydrALAZINE [Apresoline TAB] 10 mg PO DAILY 08/29/19 08/29/19 Unknown Previous Rx's Medication Instructions Recorded Last Taken Type Ferrous Sulfate [Feosol 325 MG tab] 325 mg PO BID #60 tablet 12/16/18 Unknown Rx Promethazine [Phenergan] 25 mg PO Q6HR PRN #20 tab 01/01/19 Unknown Rx Gabapentin 300 mg PO Q12H PRN #30 cap 01/05/20 Unknown Rx Meclizine [Antivert] 25 mg PO Q8H PRN #30 tablet 01/05/20 Unknown Rx Naproxen 500 mg PO Q12H PRN #24 tablet 01/05/20 Unknown Rx Prednisone [predniSONE 10 mg 10 mg PO .TAPER #21 tab.ds.pk 01/05/20 Unknown Rx (6-Day Pack, 21 Tabs)] Allergies Allergy/AdvReac Type Severity Reaction Status Date / Time Milk Containing Products Allergy Vomiting Verified 12/09/18 14:34 ED Review of Systems ROS: Stated complaint: CHEST PAIN/SOB/SWOLLEN ANKLE Other details as noted in HPI Constitutional: denies: chills, fever Eyes: denies: eye pain, eye discharge, vision change ENT: denies: ear pain, throat pain Respiratory: denies: cough, shortness of breath, wheezing Cardiovascular: chest pain. denies: palpitations Endocrine: no symptoms reported Gastrointestinal: denies: abdominal pain, nausea, diarrhea Genitourinary: denies: urgency, dysuria, discharge Musculoskeletal: arthralgia (left arm and left leg tingling sensations). denies: back pain, joint swelling Skin: denies: rash, lesions Neurological: headache, vertigo, other (dizziness). denies: weakness, paresthesias Psychiatric: denies: anxiety, depression Hematological/Lymphatic: denies: easy bleeding, easy bruising ED Past Medical Hx - Past Medical History Previous Medical History?: Yes Hx Hypertension: Yes Hx Congestive Heart Failure: No Hx Diabetes: No Hx Kidney Stones: Yes Hx Psychiatric Treatment: Yes (bipolar) Hx Asthma: No Hx COPD: No - Surgical History Past Surgical History?: Yes Hx Appendectomy: Yes Additional Surgical History: Gastric bypass 2015. Hysterectomy/salpingectomy 2019. Intestinal mass removal - Social History Smoking Status: Never Smoker Substance Use Type: None - Medications Home Medications: Home Medications Medication Instructions Recorded Confirmed Last Taken Type FLUoxetine HCL [PROzac] 40 mg PO DAILY 02/22/14 08/29/19 12/14/18 History Ferrous Sulfate [Feosol 325 MG tab] 325 mg PO BID #60 tablet 12/16/18 08/29/19 Unknown Rx Promethazine [Phenergan] 25 mg PO Q6HR PRN #20 tab 01/01/19 08/29/19 Unknown Rx Lisinopril/Hydrochlorothiazide 1 each PO DAILY 08/29/19 08/29/19 Unknown History [Zestoretic 20-12.5 mg] OLANzapine [ZyPREXA] 5 mg PO DAILY 08/29/19 08/29/19 Unknown History hydrALAZINE [Apresoline TAB] 10 mg PO DAILY 08/29/19 08/29/19 Unknown History Gabapentin 300 mg PO Q12H PRN #30 cap 01/05/20 Unknown Rx Meclizine [Antivert] 25 mg PO Q8H PRN #30 tablet 01/05/20 Unknown Rx Naproxen 500 mg PO Q12H PRN #24 tablet 01/05/20 Unknown Rx Prednisone [predniSONE 10 mg 10 mg PO .TAPER #21 tab.ds.pk 01/05/20 Unknown Rx (6-Day Pack, 21 Tabs)] ED Physical Exam - General Limitations: No Limitations General appearance: alert, in no apparent distress - Head Head exam: Present: atraumatic, normocephalic, normal inspection - Eye Eye exam: Present: normal appearance, PERRL, EOMI Pupils: Present: normal accommodation - ENT ENT exam: Present: normal exam, normal orophraynx, mucous membranes moist, TM's normal bilaterally, normal external ear exam - Neck Neck exam: Present: normal inspection, full ROM - Respiratory Respiratory exam: Present: normal lung sounds bilaterally. Absent: respiratory distress, wheezes, rhonchi, chest wall tenderness, accessory muscle use, prolonged expiratory - Cardiovascular Cardiovascular Exam: Present: regular rate, normal rhythm, normal heart sounds. Absent: systolic murmur, diastolic murmur, rubs, gallop - GI/Abdominal GI/Abdominal exam: Present: soft, normal bowel sounds. Absent: tenderness, guarding, hyperactive bowel sounds - Extremities Exam Extremities exam: Present: normal inspection, full ROM, normal capillary refill - Back Exam Back exam: Present: normal inspection, full ROM. Absent: tenderness, muscle spasm, paraspinal tenderness - Neurological Exam Neurological exam: Present: alert, oriented X3, CN II-XII intact, normal gait, reflexes normal - Psychiatric Psychiatric exam: Present: normal affect, normal mood - Skin Skin exam: Present: warm, dry, intact, normal color. Absent: rash ED Course Vital Signs 01/05/20 01/05/20 18:45 20:49 Temperature 98 F 98.1 F Pulse Rate 83 81 Respiratory 18 Rate Blood Pressure 123/69 121/66 O2 Sat by Pulse 97 99 Oximetry ED Medical Decision Making - Lab Data Result diagrams: 01/05/20 19:05 01/05/20 19:05 - EKG Data EKG shows normal: sinus rhythm Rate: normal - EKG Data Interpretation: normal EKG 01/05/20 23:47 EKG shows normal sinus rhythm with a ventricular rate of [address] or T wave abnormalities. - Radiology Data Radiology results: report reviewed, image reviewed Chest x-ray shows no acute cardiopulmonary abnormalities or pneumonitis. Head CT scan without contrast shows no acute intracranial abnormalities or hemorrhage - Medical Decision Making This is a 34-year-old female with a history of hypertension and anxiety who presented to the ED with complaint of acute onset persistent left arm and leg tingling sensations, headache, dizziness and chest pain for 2 days intermittently worse in the last 12 hours. In the ED, patient is alert and oriented x3 and is not in any distress, talking on the phone with her family and in no distress. Vital signs are stable and normal. The EKG shows normal sinus rhythm with a ventricular rate of [address] or T wave abnormalities. Patient was treated for pain and also given meclizine for dizziness. Chest x- ray shows no acute cardiopulmonary abnormalities or pneumonitis. Head CT scan without contrast shows no acute intracranial abnormalities or hemorrhage. Lab test results were reviewed and are all nonactionable including initial and repeat troponin levels. The patient heart score is 2, and she is PERC negative per Wells criteria. On reevaluation, patient's pain and dizziness resolved with treatment in the ED. patient was discharged home on medications and advised to follow-up with her primary care physician in 5 to 7 days for reevaluation. Patient was advised to return to the ED immediately if symptoms get worse. - Differential Diagnosis CAD; dizziness; radiculopathy; costochondritis; Muscle strain; anxiety Critical care attestation.: If time is entered above; I have spent that time in minutes in the direct care of this critically ill patient, excluding procedure time. ED Disposition Clinical Impression: Dizziness, nonspecific, Acute nonspecific chest pain with low risk of coronary artery disease, Cervical radiculopathy, Lumbar radiculopathy, acute Disposition: DC- TO HOME OR SELFCARE Is pt being admited?: No Does the pt Need Aspirin: No Condition: Stable Instructions: Chest Pain (ED), Dizziness (ED), Cervical Radiculopathy (ED), Lumbar Radiculopathy (ED) Additional Instructions: All lab test results are unremarkable as well as all imaging test results. Your tingling sensation is due to cervical and lumbar radiculopathy as discussed with you. Therefore take medications as advised and follow-up with your primary care physician in 5 to 7 days for reevaluation or return to the ED immediately if symptoms get worse. Prescriptions: Meclizine [Antivert] 25 mg PO Q8H PRN #30 tablet PRN Reason: Vertigo Gabapentin 300 mg PO Q12H PRN #30 cap PRN Reason: radiculopathy Naproxen 500 mg PO Q12H PRN #24 tablet PRN Reason: Pain , Severe (7-10) Prednisone [predniSONE 10 mg (6-Day Pack, 21 Tabs)] 10 mg PO .TAPER #21 tab.ds.pk Referrals: [facility] [Outside] - 3-5 Days Time of Disposition: 23:30 Print Language: TURKISH
[2020-01-05 23:42] VITALS: BP 126/73
== END 2020-01-05 23:44 | disposition home or self-care (01) ==
LOC: ED 17:06
DX: I25.10 Atherosclerotic heart disease of native coronary artery without angina pectoris (principal); R42 Dizziness and giddiness; M54.12 Radiculopathy, cervical region; M54.16 Radiculopathy, lumbar region; I10 Essential (primary) hypertension; F31.9 Bipolar disorder, unspecified; Z90.49 Acquired absence of other specified parts of digestive tract; Z90.710 Acquired absence of both cervix and uterus; Z79.899 Other long term (current) drug therapy; Z91.011 Allergy to milk products
CPT/HCPCS: 36415; 70450; 71046; 80053; 84484; 84703; 85025; 93005; 93010; 96361; 96374; 96375; 99285; J1100; J1885; J7030

== ENCOUNTER 2021-03-24 08:33 | Emergency (ER) | payer MEDICARE ==
[2021-03-24 09:05] VITALS: BP 106/72
[2021-03-24 09:31] LABS: Basophils # (Auto) 0.1 K/mm3 (0.0-0.1); Eosinophils # (Auto) 0.1 K/mm3 (0.0-0.4); Eosinophils % (Auto) 1.7 % (0.0-4.3); Hematocrit 34.4 % (30.3-42.9); Hemoglobin 11.4 gm/dl (10.1-14.3); Lymphocytes # (Auto) 1.9 K/mm3 (1.2-5.4); Mean Corpuscular HGB Conc 33 % (30-34); Mean Corpuscular Volume 84 fl (79-97); Monocytes # (Auto) 0.5 K/mm3 (0.0-0.8); Monocytes % (Auto) 10.1 % (0.0-7.3); Platelet Count 285 K/mm3 (140-440); Red Blood Count 4.12 M/mm3 (3.65-5.03); Red Cell Distribution Width 14.9 % (13.2-15.2)
[2021-03-24 09:33] LABS: Bilirubin,Urine NEG (Negative); Blood,Urine NEG (Negative); Color,Urine Yellow (Yellow); Mucus,Urine FEW /HPF; Protein,Urine <15 mg/dL mg/dL (Negative)
[2021-03-24 09:49] LABS: Alanine Aminotransferase 12 units/L (7-56); Albumin 4.5 g/dL (3.9-5); BUN/Creatinine Ratio 22; Blood Urea Nitrogen 11 mg/dL (7-17); Calcium 8.6 mg/dL (8.4-10.2); Hemolysis Index 1
--- NOTE | 2021-03-24 10:53 | Emergency Department Report ---
ED Abdominal Pain HPI - General Chief Complaint: Abdominal Pain Stated Complaint: LOWER ABD PAIN Source: patient Mode of arrival: Ambulatory Limitations: No Limitations - History of Present Illness Initial Comments: 35-year-old female complaining of pain to the lower abdomen suprapubic region x2 days associated with pressure when she urinates and also urinary frequency. She denies fever no coughing no vomiting no chest pain no shortness of breath. She has a past medical history of hypertension. Patient in no acute distress -: days(s) (2) Location: suprapubic Radiation: back Severity: mild Improves With: nothing Worsens With: nothing Associated Symptoms: denies other symptoms - Related Data Home Medications Medication Instructions Recorded Confirmed Last Taken FLUoxetine HCL [PROzac] 40 mg PO DAILY 02/22/14 08/29/19 12/14/18 Lisinopril/Hydrochlorothiazide 1 each PO DAILY 08/29/19 08/29/19 Unknown [Zestoretic 20-12.5 mg] OLANzapine [ZyPREXA] 5 mg PO DAILY 08/29/19 08/29/19 Unknown hydrALAZINE [Apresoline TAB] 10 mg PO DAILY 08/29/19 08/29/19 Unknown Previous Rx's Medication Instructions Recorded Last Taken Type Ferrous Sulfate [Feosol 325 MG tab] 325 mg PO BID #60 tablet 12/16/18 Unknown Rx Promethazine [Phenergan] 25 mg PO Q6HR PRN #20 tab 01/01/19 Unknown Rx Gabapentin 300 mg PO Q12H PRN #30 cap 01/05/20 Unknown Rx Meclizine [Antivert] 25 mg PO Q8H PRN #30 tablet 01/05/20 Unknown Rx Naproxen 500 mg PO Q12H PRN #24 tablet 01/05/20 Unknown Rx Prednisone [predniSONE 10 mg 10 mg PO .TAPER #21 tab.ds.pk 01/05/20 Unknown Rx (6-Day Pack, 21 Tabs)] Sulfamethoxazole/Trimethoprim 1 each PO BID 3 Days #6 tablet 03/24/21 Unknown Rx [Bactrim 400-80 mg Tablet] Allergies Allergy/AdvReac Type Severity Reaction Status Date / Time Milk Containing Products Allergy Vomiting Verified 03/24/21 08:59 metoclopramide [From Reglan] AdvReac Hives Verified 03/24/21 08:59 ED Review of Systems ROS: Stated complaint: LOWER ABD PAIN Other details as noted in HPI Comment: All other systems reviewed and negative Constitutional: no symptoms reported Eyes: denies: eye pain, eye discharge ENT: denies: ear pain, throat pain Cardiovascular: denies: chest pain, palpitations, dyspnea on exertion Endocrine: no symptoms reported. denies: excessive sweating, intolerance to cold, intolerance to heat Gastrointestinal: abdominal pain. denies: nausea, vomiting, diarrhea, constipation Genitourinary: dysuria, frequency. denies: hematuria, discharge Musculoskeletal: back pain Skin: denies: rash, lesions Neurological: denies: headache, weakness Psychiatric: denies: anxiety, depression, auditory hallucinations ED Past Medical Hx - Past Medical History Hx Hypertension: Yes Hx Congestive Heart Failure: No Hx Diabetes: No Hx Kidney Stones: Yes Hx Psychiatric Treatment: Yes (bipolar) Hx Asthma: No Hx COPD: No - Surgical History Hx Appendectomy: Yes Additional Surgical History: Gastric bypass 2014. Hysterectomy/salpingectomy 2019. Intestinal mass removal - Social History Smoking Status: Never Smoker Substance Use Type: None - Medications Home Medications: Home Medications Medication Instructions Recorded Confirmed Last Taken Type FLUoxetine HCL [PROzac] 40 mg PO DAILY 02/22/14 08/29/19 12/14/18 History Ferrous Sulfate [Feosol 325 MG tab] 325 mg PO BID #60 tablet 12/16/18 08/29/19 Unknown Rx Promethazine [Phenergan] 25 mg PO Q6HR PRN #20 tab 01/01/19 08/29/19 Unknown Rx Lisinopril/Hydrochlorothiazide 1 each PO DAILY 08/29/19 08/29/19 Unknown History [Zestoretic 20-12.5 mg] OLANzapine [ZyPREXA] 5 mg PO DAILY 08/29/19 08/29/19 Unknown History hydrALAZINE [Apresoline TAB] 10 mg PO DAILY 08/29/19 08/29/19 Unknown History Gabapentin 300 mg PO Q12H PRN #30 cap 01/05/20 Unknown Rx Meclizine [Antivert] 25 mg PO Q8H PRN #30 tablet 01/05/20 Unknown Rx Naproxen 500 mg PO Q12H PRN #24 tablet 01/05/20 Unknown Rx Prednisone [predniSONE 10 mg 10 mg PO .TAPER #21 tab.ds.pk 01/05/20 Unknown Rx (6-Day Pack, 21 Tabs)] Sulfamethoxazole/Trimethoprim 1 each PO BID 3 Days #6 tablet 03/24/21 Unknown Rx [Bactrim 400-80 mg Tablet] ED Physical Exam - General Limitations: No Limitations General appearance: alert, in no apparent distress - Head Head exam: Present: atraumatic - Eye Eye exam: Present: normal appearance - ENT ENT exam: Present: normal exam - Neck Neck exam: Present: normal inspection - Respiratory Respiratory exam: Present: normal lung sounds bilaterally - Cardiovascular Cardiovascular Exam: Present: regular rate - GI/Abdominal GI/Abdominal exam: Present: soft, tenderness (To the suprapubic region), normal bowel sounds. Absent: guarding, rebound, rigid - Extremities Exam Extremities exam: Present: normal inspection - Back Exam Back exam: Present: normal inspection - Neurological Exam Neurological exam: Present: alert, oriented X3 - Psychiatric Psychiatric exam: Present: normal affect ED Course Vital Signs 03/24/21 09:00 Temperature 98.7 F Pulse Rate 80 Blood Pressure 106/72 [Left] O2 Sat by Pulse 98 Oximetry - Reevaluation(s) Reevaluation #1: 03/24/21 10:56 Patient in no acute distress I discussed findings and plan with the patient she agrees and will be able to follow-up with her primary care doctor ED Medical Decision Making - Lab Data Result diagrams: 03/24/21 09:09 03/24/21 09:09 - Medical Decision Making 35-year-old female with a due 2-day complaint of pressure with urination and suprapubic pain and urinary frequency. Urine reveals trace leukocytes otherwise there is no blood and no nitrites. White count is not elevated there is no other acute findings based on patient's symptoms I plan to treat her for UTI with follow-up with her primary care doctor - Differential Diagnosis UTI, dysuria Critical Care Time: No Critical care attestation.: If time is entered above; I have spent that time in minutes in the direct care of this critically ill patient, excluding procedure time. ED Disposition Clinical Impression: Dysuria UTI (urinary tract infection) Qualifiers: Urinary tract infection type: site unspecified Hematuria presence: without hematuria Qualified Code(s): N39.0 - Urinary tract infection, site not specified Disposition: TO HOME OR SELFCARE Is pt being admited?: No Does the pt Need Aspirin: No Condition: Stable Instructions: Abdominal Pain (ED), Dysuria, Urinary Tract Infection, Adult, [id number] Prescriptions: Sulfamethoxazole/Trimethoprim [Bactrim 400-80 mg Tablet] 1 each PO BID 3 Days #6 tablet Referrals: PRIMARY CARE,MD [Primary Care Provider] - 3-5 Days Time of Disposition: 10:58
== END 2021-03-24 11:03 | disposition home or self-care (01) ==
LOC: ED 08:33
DX: N39.0 Urinary tract infection, site not specified (principal); R10.30 Lower abdominal pain, unspecified; I10 Essential (primary) hypertension; F31.9 Bipolar disorder, unspecified; Z87.442 Personal history of urinary calculi; Z90.49 Acquired absence of other specified parts of digestive tract; Z90.710 Acquired absence of both cervix and uterus; Z98.890 Other specified postprocedural states; Z88.8 Allergy status to other drugs, medicaments and biological substances; Z91.011 Allergy to milk products; Z79.899 Other long term (current) drug therapy
CPT/HCPCS: 36415; 80053; 81001; 85025; 99283

== ENCOUNTER 2021-09-12 08:22 | Observation (INO) | payer MEDICARE ==
--- NOTE | 2021-09-12 09:33 | Emergency Department Report ---
ED General Adult HPI - General Chief complaint: Chest Pain Stated complaint: CHEST PAIN PUI?: No Time Seen by Provider: 09/12/21 09:32 Source: patient, RN notes reviewed Mode of arrival: Ambulatory Limitations: Physical Limitation - History of Present Illness Initial comments: The patient is a 36-year-old female. The patient presents to the ER today with a complaint of syncope yesterday, associated with central chest pain, and left- sided weakness and numbness. Her last known well time is yesterday. The patient does not know her exact specific last known well time. Patient complains of mild headache. She also complains of central and left- sided chest pain. The patient denies abdominal pain. The patient denies vomit ing. Accu-Chek within normal limits initially. Code stroke was called overhead, as initial treating/evaluating provider noted the patient to have left-sided facial droop, and left-sided hypoesthesia. -: Sudden (Hours, started yesterday) Location: head, face, mouth, chest Consistency: constant Improves with: none Worsens with: none - Related Data Home Medications Medication Instructions Recorded Confirmed Last Taken FLUoxetine HCL [PROzac] 40 mg PO DAILY 02/22/14 09/12/21 12/14/18 Lisinopril/Hydrochlorothiazide 1 each PO DAILY 08/29/19 09/12/21 Unknown [Zestoretic 20-12.5 mg] OLANzapine [ZyPREXA] 5 mg PO DAILY 08/29/19 09/12/21 Unknown hydrALAZINE [Apresoline TAB] 10 mg PO DAILY 08/29/19 08/29/19 Unknown Previous Rx's Medication Instructions Recorded Last Taken Type Ferrous Sulfate [Feosol 325 MG tab] 325 mg PO BID #60 tablet 12/16/18 Unknown Rx Gabapentin 300 mg PO Q12H PRN #30 cap 01/05/20 Unknown Rx Meclizine [Antivert] 25 mg PO Q8H PRN #30 tablet 01/05/20 Unknown Rx Sulfamethoxazole/Trimethoprim 1 each PO BID 3 Days #6 tablet 03/24/21 Unknown Rx [Bactrim 400-80 mg Tablet] Allergies Allergy/AdvReac Type Severity Reaction Status Date / Time Milk Containing Products Allergy Vomiting Verified 09/12/21 10:24 metoclopramide [From Reglan] AdvReac Hives Verified 09/12/21 10:24 ED Review of Systems ROS: Stated complaint: CHEST PAIN Other details as noted in HPI Constitutional: malaise. denies: fever Eyes: denies: eye discharge ENT: denies: epistaxis Respiratory: denies: cough Cardiovascular: chest pain Gastrointestinal: denies: abdominal pain Musculoskeletal: myalgia Neurological: weakness, numbness ED Past Medical Hx - Past Medical History Hx Hypertension: Yes Hx Congestive Heart Failure: No Hx Diabetes: No Hx Kidney Stones: Yes Hx Psychiatric Treatment: Yes (bipolar) Hx Asthma: No Hx COPD: No - Surgical History Hx Appendectomy: Yes Additional Surgical History: Gastric bypass 2015. Hysterectomy/salpingectomy 2019. Intestinal mass removal - Social History Smoking Status: Never Smoker Substance Use Type: None - Medications Home Medications: Home Medications Medication Instructions Recorded Confirmed Last Taken Type FLUoxetine HCL [PROzac] 40 mg PO DAILY 02/22/14 09/12/21 12/14/18 History Ferrous Sulfate [Feosol 325 MG tab] 325 mg PO BID #60 tablet 12/16/18 09/12/21 Unknown Rx Lisinopril/Hydrochlorothiazide 1 each PO DAILY 08/29/19 09/12/21 Unknown History [Zestoretic 20-12.5 mg] OLANzapine [ZyPREXA] 5 mg PO DAILY 08/29/19 09/12/21 Unknown History hydrALAZINE [Apresoline TAB] 10 mg PO DAILY 08/29/19 08/29/19 Unknown History Gabapentin 300 mg PO Q12H PRN #30 cap 01/05/20 09/12/21 Unknown Rx Meclizine [Antivert] 25 mg PO Q8H PRN #30 tablet 01/05/20 09/12/21 Unknown Rx Sulfamethoxazole/Trimethoprim 1 each PO BID 3 Days #6 tablet 03/24/21 09/12/21 Unknown Rx [Bactrim 400-80 mg Tablet] ED Physical Exam - General Limitations: Physical Limitation General appearance: alert, anxious, obese - Head Head exam: Present: atraumatic, normocephalic - Eye Eye exam: Present: normal appearance, EOMI. Absent: nystagmus - ENT ENT exam: Present: normal exam, normal orophraynx, mucous membranes moist, normal external ear exam - Neck Neck exam: Present: normal inspection, full ROM. Absent: tenderness, meningismus - Respiratory Respiratory exam: Present: normal lung sounds bilaterally. Absent: respiratory distress, wheezes, rales, rhonchi, stridor, decreased breath sounds - Cardiovascular Cardiovascular Exam: Present: regular rate, normal rhythm, normal heart sounds. Absent: bradycardia, tachycardia, irregular rhythm, systolic murmur, diastolic murmur, rubs, gallop - GI/Abdominal GI/Abdominal exam: Present: soft. Absent: distended, tenderness, guarding, rebound, rigid, pulsatile mass - Extremities Exam Extremities exam: Present: normal inspection, other (2+ pulses noted in the bilateral upper and lower extremities. There is no palpable cord. negative Homans sign. Muscular compartments are soft. The pelvis is stable.). Absent: tenderness, pedal edema, calf tenderness - Back Exam Back exam: Present: normal inspection. Absent: tenderness, CVA tenderness (R), CVA tenderness (L), paraspinal tenderness, vertebral tenderness - Neurological Exam Neurological exam: Present: alert, oriented X3, motor sensory deficit (There is decrease sensation to light touch in the left arm and left leg. There is 4-5 strength left arm and left leg. There is no facial droop. The tongue is midline. EOMI) - Psychiatric Psychiatric exam: Present: flat affect - Skin Skin exam: Present: warm, dry, intact, normal color. Absent: rash ED Course Vital Signs 09/12/21 09/12/21 09/12/21 08:26 10:33 10:45 Temperature 98.8 F Pulse Rate 87 83 Respiratory 14 31 H 12 Rate Blood Pressure 119/80 Blood Pressure 144/77 [Left] O2 Sat by Pulse 98 Oximetry 09/12/21 09/12/21 09/12/21 10:47 11:00 11:31 Temperature Pulse Rate 78 77 Respiratory 13 16 Rate Blood Pressure 116/62 115/71 Blood Pressure [Left] O2 Sat by Pulse 100 Oximetry 09/12/21 09/12/21 09/12/21 11:45 12:00 12:35 Temperature Pulse Rate 76 73 83 Respiratory 15 13 15 Rate Blood Pressure 116/62 122/75 122/75 Blood Pressure [Left] O2 Sat by Pulse Oximetry - Reevaluation(s) Reevaluation #1: 09/12/21 11:55 Differential diagnosis, including not limited to: Orthostasis, vagal event, structural cardiac disease, acute coronary syndrome, pulmonary embolism, aortic dissection, subacute stroke, large vessel occlusion, carotid dissection, aortic dissection, conversion disorder Assessment and plan: 36-year-old female, complaining of chest pain, headache, syncope, and left-sided weakness. Last known well time is yesterday, patient specifically does not know her exact last known well time. Therefore, the patient is not a TPA candidate. CT scan of the brain, CT angiogram head and neck obtained, did not show any acute findings. The visualized portions of the aorta, and the carotid arteries were found to be within normal limits, therefore aortic dissection is very unlikely. A noncontrast CT scan of the brain and cervical spine were negative for acute findings. Laboratory studies were nonactionable, with the exception of mild hypokalemia. The patient is not currently tachycardic, tachypneic or hypoxic. She denied DVT/PE risk factors to myself. A D-dimer is elevated, and therefore, nuclear me dicine study will be obtained, given that the patient received IV contrast. Neurology recommendations are reviewed and appreciated. We will replete the patient's potassium. Hospital physician is paged to arrange admission. We are awaiting callback. Reevaluation #2: 09/12/21 11:57 While the patient was here in the emergency room, she was noted multiple times by myself to be speaking on a cellular phone, and not in any acute distress. Nursing team reports to myself that the patient is conversing in an infantile manner. 09/12/21 12:[address] Anirudh Chaparro service Reevaluation #3: 09/12/21 14:30 nuclear medicine study negative low probability for pe ED Medical Decision Making - Lab Data Result diagrams: 09/12/21 10:14 09/12/21 10:14 Vital Signs 09/12/21 09/12/21 08:26 10:47 Temperature 98.8 F Pulse Rate 87 Respiratory 14 Rate Blood Pressure 144/77 [Left] O2 Sat by Pulse 98 100 Oximetry Lab Results 09/12/21 09/12/21 09/12/21 Range/Units 09:30 10:14 10:14 WBC 3.8 L (4.5-11.0) K/mm3 RBC 4.39 (3.65-5.03) M/mm3 Hgb 12.1 (10.1-14.3) gm/dl Hct 37.9 (30.3-42.9) % MCV 87 (79-97) fl MCH 28 (28-32) pg MCHC 32 (30-34) % RDW 17.1 H (13.2-15.2) % Plt Count 283 (140-440) K/mm3 Lymph % (Auto) 45.4 H (13.4-35.0) % Elbert % (Auto) 7.6 H (0.0-7.3) % Eos % (Auto) 1.8 (0.0-4.3) % Baso % (Auto) 1.4 (0.0-1.8) % Lymph # (Auto) 1.7 (1.2-5.4) K/mm3 Elbert # (Auto) 0.3 (0.0-0.8) K/mm3 Eos # (Auto) 0.1 (0.0-0.4) K/mm3 Baso # (Auto) 0.1 (0.0-0.1) K/mm3 Seg Neutrophils % 43.8 (40.0-70.0) % Seg Neutrophils # 1.7 L (1.8-7.7) K/mm3 D-Dimer (0-234) ng/mlDDU Sodium (137-145) mmol/L Potassium (3.6-5.0) mmol/L Chloride (98-107) mmol/L Carbon Dioxide (22-30) mmol/L Anion Gap mmol/L BUN (7-17) mg/dL Creatinine (0.6-1.2) mg/dL Estimated GFR ml/min BUN/Creatinine Ratio % Glucose (65-100) mg/dL POC Glucose 76 (70-105) mg/dL Calcium (8.4-10.2) mg/dL Magnesium (1.7-2.3) mg/dL Total Bilirubin (0.1-1.2) mg/dL Direct Bilirubin (0-0.2) mg/dL Indirect Bilirubin mg/dL AST (5-40) units/L ALT (7-56) units/L Alkaline Phosphatase (35-129) units/L Total Creatine Kinase (30-135) units/L Troponin T < 0.010 (0.00-0.029) ng/mL Total Protein (6.3-8.2) g/dL Albumin (3.9-5) g/dL Albumin/Globulin Ratio % HCG, Qual (Negative) HCG, Quant (0-4) mIU/mL 09/12/21 09/12/21 09/12/21 Range/Units 10:14 10:14 10:14 WBC (4.5-11.0) K/mm3 RBC (3.65-5.03) M/mm3 Hgb (10.1-14.3) gm/dl Hct (30.3-42.9) % MCV (79-97) fl MCH (28-32) pg MCHC (30-34) % RDW (13.2-15.2) % Plt Count (140-440) K/mm3 Lymph % (Auto) (13.4-35.0) % Elbert % (Auto) (0.0-7.3) % Eos % (Auto) (0.0-4.3) % Baso % (Auto) (0.0-1.8) % Lymph # (Auto) (1.2-5.4) K/mm3 Elbert # (Auto) (0.0-0.8) K/mm3 Eos # (Auto) (0.0-0.4) K/mm3 Baso # (Auto) (0.0-0.1) K/mm3 Seg Neutrophils % (40.0-70.0) % Seg Neutrophils # (1.8-7.7) K/mm3 D-Dimer 241.38 H (0-234) ng/mlDDU Sodium 137 (137-145) mmol/L Potassium 3.4 L (3.6-5.0) mmol/L Chloride 96.6 L (98-107) mmol/L Carbon Dioxide 27 (22-30) mmol/L Anion Gap 17 mmol/L BUN 8 (7-17) mg/dL Creatinine 0.4 L (0.6-1.2) mg/dL Estimated GFR > 60 ml/min BUN/Creatinine Ratio 20 % Glucose 78 (65-100) mg/dL POC Glucose (70-105) mg/dL Calcium 9.1 (8.4-10.2) mg/dL Magnesium 2.00 (1.7-2.3) mg/dL Total Bilirubin 0.70 (0.1-1.2) mg/dL Direct Bilirubin < 0.2 (0-0.2) mg/dL Indirect Bilirubin 0.5 mg/dL AST 13 (5-40) units/L ALT 10 (7-56) units/L Alkaline Phosphatase 51 (35-129) units/L Total Creatine Kinase 82 (30-135) units/L Troponin T (0.00-0.029) ng/mL Total Protein 6.9 (6.3-8.2) g/dL Albumin 4.2 (3.9-5) g/dL Albumin/Globulin Ratio 1.6 % HCG, Qual Negative (Negative) HCG, Quant (0-4) mIU/mL 09/12/21 Range/Units 10:14 WBC (4.5-11.0) K/mm3 RBC (3.65-5.03) M/mm3 Hgb (10.1-14.3) gm/dl Hct (30.3-42.9) % MCV (79-97) fl MCH (28-32) pg MCHC (30-34) % RDW (13.2-15.2) % Plt Count (140-440) K/mm3 Lymph % (Auto) (13.4-35.0) % Elbert % (Auto) (0.0-7.3) % Eos % (Auto) (0.0-4.3) % Baso % (Auto) (0.0-1.8) % Lymph # (Auto) (1.2-5.4) K/mm3 Elbert # (Auto) (0.0-0.8) K/mm3 Eos # (Auto) (0.0-0.4) K/mm3 Baso # (Auto) (0.0-0.1) K/mm3 Seg Neutrophils % (40.0-70.0) % Seg Neutrophils # (1.8-7.7) K/mm3 D-Dimer (0-234) ng/mlDDU Sodium (137-145) mmol/L Potassium (3.6-5.0) mmol/L Chloride (98-107) mmol/L Carbon Dioxide (22-30) mmol/L Anion Gap mmol/L BUN (7-17) mg/dL Creatinine (0.6-1.2) mg/dL Estimated GFR ml/min BUN/Creatinine Ratio % Glucose (65-100) mg/dL POC Glucose (70-105) mg/dL Calcium (8.4-10.2) mg/dL Magnesium (1.7-2.3) mg/dL Total Bilirubin (0.1-1.2) mg/dL Direct Bilirubin (0-0.2) mg/dL Indirect Bilirubin mg/dL AST (5-40) units/L ALT (7-56) units/L Alkaline Phosphatase (35-129) units/L Total Creatine Kinase (30-135) units/L Troponin T (0.00-0.029) ng/mL Total Protein (6.3-8.2) g/dL Albumin (3.9-5) g/dL Albumin/Globulin Ratio % HCG, Qual (Negative) HCG, Quant < 2 (0-4) mIU/mL - EKG Data -: EKG Interpreted by Sd EKG shows normal: sinus rhythm Rate: normal - EKG Data When compared to previous EKG there are: no significant change (Unchanged from prior EKG from December 2019) 09/12/21 11:52 The EKG is interpreted at 08: 34 Sinus rhythm, 86 bpm. Normal axis, QTC 445 ms. There is motion artifact. This is an abnormal EKG. This is not a STEMI. - Radiology Data Radiology results: pending, report reviewed, image reviewed CT BRAIN: 09/12/2021 INDICATION / CLINICAL INFORMATION: Headache and syncope. COMPARISON: CT brain 01/05/2020 FINDINGS: BRAIN/INTRACRANIAL STRUCTURES: Unenhanced CT images of the brain demonstrate no evidence of acute intracranial abnormality. Ventricles and sulci are normal in size and shape. There is no evidence of ischemic injury, hemorrhage, or mass. There are no abnormal extra- axial fluid collections. There is been no change when compared to 01/05/2020 EXTRACRANIAL STRUCTURES: Unremarkable. IMPRESSION: Negative unenhanced CT of the brain. Notification: Emergency room physician RN at [address] scans at this location are performed using dose reduction to ALARA by means of automated exposure control. Signer Name: Qamar Tinsley MD Signed: 09/12/2021 9:43 AM Workstation Name: [id number] CHEST 1 VIEW INDICATION: cp. COMPARISON: 01/05/2020 FINDINGS: Support devices: None. Heart: Normal. Lungs/Pleura: No acute pulmonary or pleural findings. IMPRESSION: 1. No acute findings. Signer Name: Yosef Miller MD Signed: 09/12/2021 10:[address] CERVICAL SPINE: 09/12/2021 INDICATION / CLINICAL INFORMATION: fall with head injury. COMPARISON: None available. FINDINGS: CT images of the cervical spine were obtained. Images are evaluated in the axial, coronal, and sagittal planes. There is no evidence of acute abnormality. Mild reversal of cervical lordosis is centered at the C5-6 level with the patient positioned for this exam. There is a mild diffuse disc bulging present at C5-6. There is no evidence of significant osseous or foraminal narrowing. CRANIOCERVICAL JUNCTION: Unremarkable. PARASPINAL STRUCTURES: Unremarkable IMPRESSION: No acute abnormality. All CT scans at this location are performed using dose reduction to ALARA by means of automated exposure control. Signer Name: Qamar Tinsley MD Signed: 09/12/2021 9:30 AM Workstation Name: [id number] CTA NECK WITH CONTRAST 09/12/2021 INDICATION / CLINICAL INFORMATION: syncope, left sided weakness and numbness with POLLACK OMNI 350 100ML. COMPARISON: None. TECHNIQUE: Routine CTA of the neck is performed. 3-D/MIP reformats were postprocessed. Percentage stenosis is determined by direct quantitative measurements of diseased internal carotid artery diameter compared with normal distal internal carotid artery reference segments or by criteria similar to NASCET where applicable. All CT scans at this location are performed using CT dose reduction for ALARA by means of automated exposure control. CONTRAST: 100 ml of Omnipaque 350 FINDINGS: Carotid bifurcations: No evidence of carotid bifurcation stenosis. Carotid arteries: No significant abnormality. Cervical vertebral arteries: No significant abnormality. Aortic arch: No significant abnormality. None. IMPRESSION: No significant abnormality. Signer Name: Qamar Tinsley MD Signed: 09/12/2021 9:52 AM Workstation Name: [id number] CTA HEAD WITH CONTRAST 09/12/2021 HISTORY: syncope, left sided weakness and numbness with POLLACK . COMPARISON: None. TECHNIQUE: All CT scans at this location are performed using CT dose reduction for ALARA by means of automated exposure control.. 3-D/MIP reformats postprocessed. Percentage stenosis is determined by direct quantitative measurements of diseased internal carotid artery diameter compared with normal distal internal carotid artery reference segments or by criteria similar to NASCET where applicable. CONTRAST: 100 ml of Omnipaque 350 FINDINGS: CTA HEAD: Intracranial vertebral arteries: No significant abnormali ty. Basilar artery: No significant abnormality. Posterior cerebral arteries: No significant abnormality. Intracranial internal carotid arteries: No significant abnormality. Anterior cerebral arteries: No significant abnormality. Middle cerebral arteries: No significant abnormality. Dural venous sinuses:Not optimally opacified. No significant abnormality. Additional findings: None. IMPRESSION: 1. No significant abnormality. Signer Name: Qamar Tinsley MD Signed: 09/12/2021 9:54 AM Workstation Name: [id number] Critical care attestation.: If time is entered above; I have spent that time in minutes in the direct care of this critically ill patient, excluding procedure time. ED Disposition Clinical Impression: Syncope, Acute chest pain, Left sided numbness Disposition: ADMITTED INPATIENT Is pt being admited?: Yes Does the pt Need Aspirin: Yes Condition: Good
--- NOTE | 2021-09-12 09:39 | Event Note ---
ED Screening Note Date of service: 09/12/21 Time: 09:37 ED Screening Note: Patient presents with complaints of syncopal episode and headache along with chest pain Patient states yesterday afternoon she passed out while making a bowl of cereal and awoke on the floor to her friend She denies any preceding symptoms She states she has had a headache since and now has chest pain She admits to weakness to the left side of her body and numbness to the left side of her face and body She denies being on blood thinners No history of DVT/PE, hemoptysis/cough, recent long travel/surgeries, or hormone use per patient Romberg exam negative abnormal Facial asymmetry noted with eyebrow lift This initial assessment/diagnostic orders/clinical plan/treatment(s) is/are subject to change based on patients health status, clinical progression and re- assessment by fellow clinical providers in the ED. Further treatment and workup at subsequent clinical providers discretion. Patient/guardian urged not to elope from the ED as their condition may be serious if not clinically assessed and managed. Initial orders include: Stroke alert called CTA head CTA neck CT neck Labs EKG alerted
[2021-09-12 10:27] LABS: Basophils # (Auto) 0.1 K/mm3 (0.0-0.1); Basophils % (Auto) 1.4 % (0.0-1.8); Eosinophils # (Auto) 0.1 K/mm3 (0.0-0.4); Eosinophils % (Auto) 1.8 % (0.0-4.3); Hematocrit 37.9 % (30.3-42.9); Hemoglobin 12.1 gm/dl (10.1-14.3); Lymphocytes # (Auto) 1.7 K/mm3 (1.2-5.4); Lymphocytes % (Auto) 45.4 % (13.4-35.0); Mean Corpuscular HGB Conc 32 % (30-34); Mean Corpuscular Volume 87 fl (79-97); Monocytes # (Auto) 0.3 K/mm3 (0.0-0.8); Monocytes % (Auto) 7.6 % (0.0-7.3); Platelet Count 283 K/mm3 (140-440); Red Blood Count 4.39 M/mm3 (3.65-5.03); Red Cell Distribution Width 17.1 % (13.2-15.2)
--- NOTE | 2021-09-12 10:35 | Cat Scan Report ---
CT CERVICAL SPINE: 09/12/2021 INDICATION / CLINICAL INFORMATION: fall with head injury. COMPARISON: None available. FINDINGS: CT images of the cervical spine were obtained. Images are evaluated in the axial, coronal, and sagitt al planes. There is no evidence of acute abnormality. Mild reversal of cervical lordosis is centered at the C5-6 level with the patient positioned for this exam. There is a mild diffuse disc bulging present at C5-6. There is no evidence of significant osseous or foraminal narrowing. CRANIOCERVICAL JUNCTION: Unremarkable. PARASPINAL STRUCTURES: Unremarkable IMPRESSION: No acute abnormality. All CT scans at this location are performed using dose reduction to ALARA by means of automated expos ure control. Signer Name: Qamar Tinsley MD Signed: 09/12/2021 10:30 AM Workstation Name: [id number]
--- NOTE | 2021-09-12 10:47 | Cat Scan Report ---
CT BRAIN: 09/12/2021 INDICATION / CLINICAL INFORMATION: Headache and syncope. COMPARISON: CT brain 01/05/2020 FINDINGS: BRAIN/INTRACRANIAL STRUCTURES: Unenhanced CT images of the brain demonstrate no evidence of acute int racranial abnormality. Ventricles and sulci are normal in size and shape. There is no evidence of ischemic injury, hemorrhage, or mass. There are no abnormal extra-axial fluid collections. There is been no change when compared to 01/05/2020 EXTRACRANIAL STRUCTURES: Unremarkable. IMPRESSION: Negative unenhanced CT of the brain. Notification: Emergency room physician RN at [address] scans at this location are performed using dose reduction to ALARA by means of automated expos ure control. Signer Name: Qamar Tinsley MD Signed: 09/12/2021 10:43 AM Workstation Name: [id number]
--- NOTE | 2021-09-12 10:56 | Cat Scan Report ---
CTA NECK WITH CONTRAST 09/12/2021 INDICATION / CLINICAL INFORMATION: syncope, left sided weakness and numbness with POLLACK OMNI 350 100ML. COMPARISON: None. TECHNIQUE: Routine CTA of the neck is performed. 3-D/MIP reformats were postprocessed. Percentage st enosis is determined by direct quantitative measurements of diseased internal carotid artery diameter compared with normal distal internal carotid artery reference segments or by criteria similar to JODEE CET where applicable. All CT scans at this location are performed using CT dose reduction for ALARA b y means of automated exposure control. CONTRAST: 100 ml of Omnipaque 350 FINDINGS: Carotid bifurcations: No evidence of carotid bifurcation stenosis. Carotid arteries: No significant abnormality. Cervical vertebral arteries: No significant abnormality. Aortic arch: No significant abnormality. None. IMPRESSION: No significant abnormality. Signer Name: Qamar Tinsley MD Signed: 09/12/2021 10:52 AM Workstation Name: [id number]
[2021-09-12 10:57] LABS: Alanine Aminotransferase 10 units/L (7-56); Albumin 4.2 g/dL (3.9-5); Blood Urea Nitrogen 8 mg/dL (7-17); Calcium 9.1 mg/dL (8.4-10.2); Hemolysis Index 6
--- NOTE | 2021-09-12 10:59 | Cat Scan Report ---
CTA HEAD WITH CONTRAST 09/12/2021 HISTORY: syncope, left sided weakness and numbness with POLLACK . COMPARISON: None. TECHNIQUE: All CT scans at this location are performed using CT dose reduction for ALARA by means of automated exposure control.. 3-D/MIP reformats postprocessed. Percentage stenosis is determined by d irect quantitative measurements of diseased internal carotid artery diameter compared with normal dis frances internal carotid artery reference segments or by criteria similar to NASCET where applicable. CONTRAST: 100 ml of Omnipaque 350 FINDINGS: CTA HEAD: Intracranial vertebral arteries: No significant abnormality. Basilar artery: No significant abnormality. Posterior cerebral arteries: No significant abnormality. Intracranial internal carotid arteries: No significant abnormality. Anterior cerebral arteries: No significant abnormality. Middle cerebral arteries: No significant abnormality. Dural venous sinuses:Not optimally opacified. No significant abnormality. Additional findings: None. IMPRESSION: 1. No significant abnormality. Signer Name: Qamar Tinsley MD Signed: 09/12/2021 10:54 AM Workstation Name: [id number]
[2021-09-12 11:01] LABS: BUN/Creatinine Ratio 20; Bilirubin,Direct < 0.2 mg/dL (0-0.2)
--- NOTE | 2021-09-12 11:09 | Consultation ---
Medications and Allergies Allergies Allergy/AdvReac Type Severity Reaction Status Date / Time Milk Containing Products Allergy Vomiting Verified 09/12/21 10:24 metoclopramide [From Reglan] AdvReac Hives Verified 09/12/21 10:24 Home Medications Medication Instructions Recorded Confirmed Last Taken Type FLUoxetine HCL [PROzac] 40 mg PO DAILY 02/22/14 09/12/21 12/14/18 History Ferrous Sulfate [Feosol 325 MG tab] 325 mg PO BID #60 tablet 12/16/18 09/12/21 Unknown Rx Lisinopril/Hydrochlorothiazide 1 each PO DAILY 08/29/19 09/12/21 Unknown History [Zestoretic 20-12.5 mg] OLANzapine [ZyPREXA] 5 mg PO DAILY 08/29/19 09/12/21 Unknown History hydrALAZINE [Apresoline TAB] 10 mg PO DAILY 08/29/19 08/29/19 Unknown History Gabapentin 300 mg PO Q12H PRN #30 cap 01/05/20 09/12/21 Unknown Rx Meclizine [Antivert] 25 mg PO Q8H PRN #30 tablet 01/05/20 09/12/21 Unknown Rx Sulfamethoxazole/Trimethoprim 1 each PO BID 3 Days #6 tablet 03/24/21 09/12/21 Unknown Rx [Bactrim 400-80 mg Tablet] Physical Examination - Vital Signs Vital Signs: Vital Signs Temp Pulse Resp BP Pulse Ox 98.8 F 87 14 144/77 98 09/12/21 08:26 09/12/21 08:26 09/12/21 08:26 09/12/21 08:26 09/12/21 08:26 Results - Laboratory Findings CBC and BMP: 09/12/21 10:14 09/12/21 10:14 Abnormal Lab Findings: Abnormal Labs 09/12/21 09/12/21 09/12/21 10:14 10:14 10:14 WBC 3.8 L RDW 17.1 H Lymph % (Auto) 45.4 H Bates % (Auto) 7.6 H Seg Neutrophils # 1.7 L D-Dimer 241.38 H Potassium 3.4 L Chloride 96.6 L Creatinine 0.4 L Assessment and Plan [facility] Consult Note # Demographics Consult Type: Acute Stroke Level 1 (0-4.5 hrs) Patient Location: Emergency Room First Name: Colton Last Name: Robert Date of : 1985 Age: 36 Gender: Female Facility: [facility] Time of Initial Page (): 09/12/2021, 09:28 Time of Return Call ( Time): 09/12/2021, 09:28 # HPI History: 36 yo woman awoke this morning feeling weird and chest pain with left sided numnbess starting around 7:30 # Scores Time of exam and NIHSS ( Time): 09/12/2021, 09:36 Level of Consciousness 1a: [0] = Alert; keenly responsive LOC Questions 1b: [1] = Answers one correctly LOC Commands 1c: [0] = Performs both tasks correctly Best Gaze 2: [0] = Normal Visual 3: [0] = No visual loss Facial Palsy 4: [0] = Normal symmetrical movements Motor Arm Left 5a: [1] = Drift Motor Arm Right 5b: [0] = No drift Motor Leg Left 6a: [0] = No drift Motor Leg Right 6b: [0] = No drift Limb Ataxia 7: [0] = Absent Sensory 8: [1] = [id number]-wzdgvnpb sensory loss Best Language 9: [1] = Umfr-xf-hyalbfjr aphasia Dysarthria 10: [0] = Normal Extinction and Inattention 11: [0] = No abnormality NIHSS Total: 4 # PMH-FH-SH Past Medical History: Diabetes hypertension # Assessment Impression: Chest pain and left-sided numbness. Some symptoms noted upon awakening in addition exam fluctuates and atypical for stroke. Given time of onset > 4.5 hours and atypical exam, would not recommend IV tpa. # Plan Thrombolytic/Intervention: NOT IV Thrombolysis or IA Intervention candidate Thrombolytic Exclusion: > 4.5 hours Intraarterial Exclusion: no large vessel occlusion (LVO) Target Blood Pressure: SBP < 220 Imaging: (urgency: STAT): MRI Brain without contrast Therapy/Evaluation: NPO until swallow evaluation DVT Prophylaxis: SCD chemical DVT prophylaxis Other: permissive hypertension telemetry monitoring would not pursue stroke work-up if MRI is negative I have discussed my recommendations with the referring provider Additional Recommendations: Admit for further workup Disposition: admit # Logistics Telemedicine: Interactive 2 way audio and visual telecommunication technology was utilized during this visit
--- NOTE | 2021-09-12 11:21 | XRay Report ---
CHEST 1 VIEW INDICATION: cp. COMPARISON: 01/05/2020 FINDINGS: Support devices: None. Heart: Normal. Lungs/Pleura: No acute pulmonary or pleural findings. IMPRESSION: 1. No acute findings. Signer Name: Yosef Miller MD Signed: 09/12/2021 11:16 AM Workstation Name: [id number]
[2021-09-12] MEDS ORDERED: POTASSIUM CHLORIDE ER 20 MEQ TAB PO ONE (11:49)
[2021-09-12] MEDS ORDERED: LACTATED RINGERS 1,000 ML IV ONE (11:49)
[2021-09-12] MEDS ORDERED: ASPIRIN 81 MG TAB CHEW PO ONE (11:58)
--- NOTE | 2021-09-12 13:03 | Nuclear Medicine Report ---
NUCLEAR MEDICINE PERFUSION LUNG SCAN INDICATION / CLINICAL INFORMATION: Chest pain, syncope. Left-sided numbness. TECHNIQUE: 5.5 mCi of Tc-99m MAA were given by IV. COMPARISON: Chest radiograph dated 09/12/2021. FINDINGS: PERFUSION: No significant perfusion defects. ADDITIONAL FINDINGS: None. IMPRESSION: 1. Low probability for pulmonary embolism. Signer Name: Tim Lee MD Signed: 09/12/2021 12:58 PM Workstation Name: [id number]
[2021-09-12] MEDS ORDERED: ACETAMINOPHEN 325 MG TAB PO ONE ×2 (14:18→21:00)
[2021-09-12] MEDS ORDERED: GABAPENTIN 300 MG CAP PO PRN (22:20)
[2021-09-12] MEDS ORDERED: MECLIZINE 25 MG TAB PO PRN (22:20)
--- NOTE | 2021-09-12 22:20 | History and Physical Report ---
History of Present Illness Date of examination: 09/12/21 Date of admission: 09/12/21 11:58 Chief complaint: Left-sided numbness and weakness since a.m. History of present illness: 36-year-old female with history of hypertension, depression comes to the ER with complaint of passing out yesterday. And also complains of left-sided numbness and weakness. Last well-known time was yesterday. During my examination patient stays with his numbness on the left side both upper and left upper extremity and left lower extremity. And that she is unable to left. Left upper extremity and left lower extremity. She lifts both left upper extremity and left lower extremity. also complains of left-sided chest pain. - Past Medical History Hx Hypertension: Yes Hx Kidney Stones: Yes Hx Psychiatric Treatment: Yes (bipolar) - Surgical History --Appendectomy: Yes --Additional Surgical History: Gastric bypass 2014. Hysterectomy/salpingectomy 2019. Intestinal mass removal - Social History --Smoking Status: Never Smoker --Substance Use Type: None - Medications --Home Medications: Home Medications Medication Instructions Recorded Confirmed Last Taken Type FLUoxetine HCL [PROzac] 40 mg PO DAILY 02/22/14 09/12/21 12/14/18 History Ferrous Sulfate [Feosol 325 MG tab] 325 mg PO BID #60 tablet 12/16/18 09/12/21 Unknown Rx Lisinopril/Hydrochlorothiazide 1 each PO DAILY 08/29/19 09/12/21 Unknown History [Zestoretic 20-12.5 mg] OLANzapine [ZyPREXA] 5 mg PO DAILY 08/29/19 09/12/21 Unknown History hydrALAZINE [Apresoline TAB] 10 mg PO DAILY 08/29/19 08/29/19 Unknown History Gabapentin 300 mg PO Q12H PRN #30 cap 01/05/20 09/12/21 Unknown Rx Meclizine [Antivert] 25 mg PO Q8H PRN #30 tablet 01/05/20 09/12/21 Unknown Rx Sulfamethoxazole/Trimethoprim 1 each PO BID 3 Days #6 tablet 03/24/21 09/12/21 Unknown Rx [Bactrim 400-80 mg Tablet] Review of Systems ROS: Stated complaint: CHEST PAIN Other details as noted in HPI Constitutional: malaise. denies: fever Eyes: denies: eye discharge ENT: denies: epistaxis Respiratory: denies: cough Cardiovascular: chest pain Gastrointestinal: denies: abdominal pain Musculoskeletal: myalgia Neurological: weakness, numbness Medications and Allergies Allergies Allergy/AdvReac Type Severity Reaction Status Date / Time Milk Containing Products Allergy Vomiting Verified 09/12/21 10:24 metoclopramide [From Reglan] AdvReac Hives Verified 09/12/21 10:24 Home Medications Medication Instructions Recorded Confirmed Last Taken Type FLUoxetine HCL [PROzac] 40 mg PO DAILY 02/22/14 09/12/21 12/14/18 History Ferrous Sulfate [Feosol 325 MG tab] 325 mg PO BID #60 tablet 12/16/18 09/12/21 Unknown Rx Lisinopril/Hydrochlorothiazide 1 each PO DAILY 08/29/19 09/12/21 Unknown History [Zestoretic 20-12.5 mg] OLANzapine [ZyPREXA] 5 mg PO DAILY 08/29/19 09/12/21 Unknown History hydrALAZINE [Apresoline TAB] 10 mg PO DAILY 08/29/19 08/29/19 Unknown History Gabapentin 300 mg PO Q12H PRN #30 cap 01/05/20 09/12/21 Unknown Rx Meclizine [Antivert] 25 mg PO Q8H PRN #30 tablet 01/05/20 09/12/21 Unknown Rx Sulfamethoxazole/Trimethoprim 1 each PO BID 3 Days #6 tablet 03/24/21 09/12/21 Unknown Rx [Bactrim 400-80 mg Tablet] Exam - Constitutional Vitals: Temp Pulse Resp BP Pulse Ox 98.8 F 86 18 107/63 100 09/12/21 08:26 09/12/21 19:00 09/12/21 19:00 09/12/21 19:00 09/12/21 10:47 General appearance: Present: no acute distress, well-nourished - EENT Eyes: Present: PERRL ENT: hearing intact, clear oral mucosa - Neck Neck: Present: supple, normal ROM - Respiratory Respiratory effort: normal Respiratory: bilateral: CTA - Cardiovascular Heart rate: 78 Rhythm: regular Heart Sounds: Present: S1 & S2. Absent: rub, click - Extremities Extremities: pulses symmetrical, No edema Peripheral Pulses: within normal limits - Abdominal General gastrointestinal: Present: soft, non-tender, non-distended, normal bowel sounds Female genitourinary: Present: normal - Integumentary Integumentary: Present: clear, warm, dry - Musculoskeletal Musculoskeletal: left sided weakness - Psychiatric Psychiatric: appropriate mood/affect, intact judgment & insight - Neurologic Neurologic: CNII-XII intact, focal deficits (Left upper extremity and left lower extremity weakness.) HEART Score - HEART Score Troponin: Troponin T < 0.010 ng/mL (0.00-0.029) 09/12/21 10:14 Results - Labs CBC & Chem 7: 09/13/21 05:23 09/13/21 05:23 Labs: Laboratory Last Values WBC 3.8 K/mm3 (4.5-11.0) L 09/12/21 10:14 RBC 4.39 M/mm3 (3.65-5.03) 09/12/21 10:14 Hgb 12.1 gm/dl (10.1-14.3) 09/12/21 10:14 Hct 37.9 % (30.3-42.9) 09/12/21 10:14 MCV 87 fl (79-97) 09/12/21 10:14 MCH 28 pg (28-32) 09/12/21 10:14 MCHC 32 % (30-34) 09/12/21 10:14 RDW 17.1 % (13.2-15.2) H 09/12/21 10:14 Plt Count 283 K/mm3 (140-440) 09/12/21 10:14 Lymph % (Auto) 45.4 % (13.4-35.0) H 09/12/21 10:14 Roosevelt % (Auto) 7.6 % (0.0-7.3) H 09/12/21 10:14 Eos % (Auto) 1.8 % (0.0-4.3) 09/12/21 10:14 Baso % (Auto) 1.4 % (0.0-1.8) 09/12/21 10:14 Lymph # (Auto) 1.7 K/mm3 (1.2-5.4) 09/12/21 10:14 Roosevelt # (Auto) 0.3 K/mm3 (0.0-0.8) 09/12/21 10:14 Eos # (Auto) 0.1 K/mm3 (0.0-0.4) 09/12/21 10:14 Baso # (Auto) 0.1 K/mm3 (0.0-0.1) 09/12/21 10:14 Seg Neutrophils % 43.8 % (40.0-70.0) 09/12/21 10:14 Seg Neutrophils # 1.7 K/mm3 (1.8-7.7) L 09/12/21 10:14 D-Dimer 241.38 ng/mlDDU (0-234) H 09/12/21 10:14 Sodium 137 mmol/L (137-145) 09/12/21 10:14 Potassium 3.4 mmol/L (3.6-5.0) L 09/12/21 10:14 Chloride 96.6 mmol/L (98-107) L 09/12/21 10:14 Carbon Dioxide 27 mmol/L (22-30) 09/12/21 10:14 Anion Gap 17 mmol/L 09/12/21 10:14 BUN 8 mg/dL (7-17) 09/12/21 10:14 Creatinine 0.4 mg/dL (0.6-1.2) L 09/12/21 10:14 Estimated GFR > 60 ml/min 09/12/21 10:14 BUN/Creatinine Ratio 20 % 09/12/21 10:14 Glucose 78 mg/dL (65-100) 09/12/21 10:14 POC Glucose 76 mg/dL (70-105) 09/12/21 09:30 Calcium 9.1 mg/dL (8.4-10.2) 09/12/21 10:14 Magnesium 1.90 mg/dL (1.7-2.3) 09/12/21 11:55 Total Bilirubin 0.70 mg/dL (0.1-1.2) 09/12/21 10:14 Direct Bilirubin < 0.2 mg/dL (0-0.2) 09/12/21 10:14 Indirect Bilirubin 0.5 mg/dL 09/12/21 10:14 AST 13 units/L (5-40) 09/12/21 10:14 ALT 10 units/L (7-56) 09/12/21 10:14 Alkaline Phosphatase 51 units/L (35-129) 09/12/21 10:14 Total Creatine Kinase 82 units/L (30-135) 09/12/21 10:14 Troponin T < 0.010 ng/mL (0.00-0.029) 09/12/21 10:14 Total Protein 6.9 g/dL (6.3-8.2) 09/12/21 10:14 Albumin 4.2 g/dL (3.9-5) 09/12/21 10:14 Albumin/Globulin Ratio 1.6 % 09/12/21 10:14 TSH 0.291 mlU/mL (0.270-4.200) 09/12/21 11:55 HCG, Qual Negative (Negative) 09/12/21 10:14 HCG, Quant < 2 mIU/mL (0-4) 09/12/21 10:14 Short CBC 09/12/21 09/13/21 Range/Units 10:14 05:23 WBC 3.8 L 3.0 L (4.5-11.0) K/mm3 Hgb 12.1 11.2 (10.1-14.3) gm/dl Hct 37.9 34.8 (30.3-42.9) % Plt Count 283 267 (140-440) K/mm3 BMP 09/12/21 09/13/21 10:14 05:23 Sodium 137 140 Potassium 3.4 L 3.2 L Chloride 96.6 L 100.7 Carbon Dioxide 27 25 BUN 8 6 L Creatinine 0.4 L 0.4 L Glucose 78 80 Calcium 9.1 8.8 Cardiac Enzymes 09/12/21 09/12/21 Range/Units 10:14 10:14 Total Creatine Kinase 82 (30-135) units/L Troponin T < 0.010 (0.00-0.029) ng/mL Liver Function 09/12/21 09/13/21 Range/Units 10:14 05:23 Total Bilirubin 0.70 0.60 (0.1-1.2) mg/dL Direct Bilirubin < 0.2 (0-0.2) mg/dL AST 13 13 (5-40) units/L ALT 10 9 (7-56) units/L Alkaline Phosphatase 51 47 (35-129) units/L Albumin 4.2 3.7 L (3.9-5) g/dL - Imaging and Cardiology Imaging and Cardiology: Head CTA, neck CTA, head CT--no acute abnormalities or obstruction. Assessment and Plan Advance Directives: Yes (Full code) VTE prophylaxis?: Chemical Plan of care discussed with patient/family: Yes - Patient Problems (1) Conversion reaction Current Visit: Yes Status: Acute Plan to address problem: Patient has a negative and normal head CTA and neck CTA. Given the age and warnings of conversion reaction. MRI brain was requested. Stroke protocol was not initiated. Neurology consult requested. (2) Left hemiparesis Current Visit: Yes Status: Acute Plan to address problem: I am in favor of conversion reaction No acute CVA Neurology consult Observation status (3) Hypertension Current Visit: No Status: Chronic Plan to address problem: Continue antihypertensives (4) Conversion reaction Current Visit: Yes Status: Acute (5) Left sided numbness Current Visit: Yes Status: Acute Plan to address problem: Probably conversion reaction Will defer to the neurology (6) Hypokalemia Current Visit: Yes Status: Acute Plan to address problem: Supplemented (7) DVT prophylaxis Current Visit: Yes Status: Acute Plan to address problem: On anticoagulation and GI prophylaxis
[2021-09-12] MEDS ORDERED: HYDROmorphone 1 MG/1 ML INJ IV PRN (22:22)
[2021-09-12] MEDS ORDERED: ACETAMINOPHEN 325 MG TAB PO PRN (22:22)
[2021-09-12] MEDS ORDERED: METOCLOPRAMIDE 10 MG/2 ML INJ IV PRN (22:22)
[2021-09-12] MEDS: oxyCODONE /ACETAMINOPHEN 5-325MG TAB PO PRN (23:17)
[2021-09-12] MEDS: SODIUM CHLORIDE 0.9% 1000 ML 1,000 ML IV SCH (23:24)
[2021-09-12] MEDS: HEPARIN 5,000 UNIT/1 ML VIAL SUB-Q SCH (23:35)
[2021-09-12] MEDS: FAMOTIDINE 20 MG/2 ML INJ IV SCH (23:36)
[2021-09-12] MEDS: hydrALAZINE 10 MG TAB PO SCH (23:37)
[2021-09-13] MEDS: ONDANSETRON 4 MG/2 ML INJ IV PRN ×2 (00:44→09:03)
[2021-09-13 06:11] LABS: Basophils % (Auto) 1.3 % (0.0-1.8); Eosinophils # (Auto) 0.1 K/mm3 (0.0-0.4); Hematocrit 34.8 % (30.3-42.9); Hemoglobin 11.2 gm/dl (10.1-14.3); Lymphocytes # (Auto) 1.6 K/mm3 (1.2-5.4); Lymphocytes % (Auto) 53.4 % (13.4-35.0); Mean Corpuscular HGB Conc 32 % (30-34); Mean Corpuscular Volume 87 fl (79-97); Monocytes # (Auto) 0.2 K/mm3 (0.0-0.8); Monocytes % (Auto) 8.2 % (0.0-7.3); Platelet Count 267 K/mm3 (140-440); Red Blood Count 3.99 M/mm3 (3.65-5.03); Red Cell Distribution Width 16.8 % (13.2-15.2)
[2021-09-13] MEDS: hydrALAZINE 10 MG TAB PO SCH ×3 (06:14→21:38)
[2021-09-13 06:29] LABS: Alanine Aminotransferase 9 units/L (7-56); Albumin 3.7 g/dL (3.9-5); Blood Urea Nitrogen 6 mg/dL (7-17); Calcium 8.8 mg/dL (8.4-10.2); Hemolysis Index 16
[2021-09-13 06:30] LABS: BUN/Creatinine Ratio 15
[2021-09-13] MEDS ORDERED: POTASSIUM CHLORIDE ER 20 MEQ TAB PO NR (07:30)
[2021-09-13] MEDS: FERROUS SULFATE 325 MG TAB PO SCH (09:01)
[2021-09-13] MEDS: hydroCHLOROthiazide 12.5 MG CAP PO SCH (09:01)
[2021-09-13] MEDS: FLUoxetine 20 MG CAP PO SCH (09:01)
[2021-09-13] MEDS: FAMOTIDINE 20 MG/2 ML INJ IV SCH ×2 (09:02→21:39)
[2021-09-13] MEDS: HEPARIN 5,000 UNIT/1 ML VIAL SUB-Q SCH ×2 (09:02→21:39)
[2021-09-13] MEDS: oxyCODONE /ACETAMINOPHEN 5-325MG TAB PO PRN (09:04)
[2021-09-13] MEDS: LISINOPRIL 20 MG TAB PO SCH (09:04)
--- NOTE | 2021-09-13 09:28 | Consultation ---
History of Present Illness Consult date: 09/13/21 Reason for Consult: left side numbness History of present illness: Left-sided numbness and weakness since a.m. History of present illness: 36-year-old female with history of hypertension, depression comes to the ER with complaint of passing out yesterday. And also complains of left-sided numbness and weakness. Last well-known time was yesterday. according to pt. she is with recurrent headache for x2 weeks dull ache she averaged 12-15 tylenol per week no previous hx of headache according to her she still with left side weakness and numbness - Past Medical History Hx Hypertension: Yes Hx Kidney Stones: Yes Hx Psychiatric Treatment: Yes (bipolar) - Surgical History --Appendectomy: Yes --Additional Surgical History: Gastric bypass 2014. Hysterectomy/salpingectomy 2019. Intestinal mass removal - Social History --Smoking Status: Never Smoker --Substance Use Type: None - Medications --Home Medications: Home Medications Medication Instructions Recorded Confirmed Last Taken Type FLUoxetine HCL [PROzac] 40 mg PO DAILY 02/22/14 09/12/21 12/14/18 History Ferrous Sulfate [Feosol 325 MG tab] 325 mg PO BID #60 tablet 12/16/18 09/12/21 Unknown Rx Lisinopril/Hydrochlorothiazide 1 each PO DAILY 08/29/19 09/12/21 Unknown History [Zestoretic 20-12.5 mg] OLANzapine [ZyPREXA] 5 mg PO DAILY 08/29/19 09/12/21 Unknown History hydrALAZINE [Apresoline TAB] 10 mg PO DAILY 08/29/19 08/29/19 Unknown History Gabapentin 300 mg PO Q12H PRN #30 cap 01/05/20 09/12/21 Unknown Rx Meclizine [Antivert] 25 mg PO Q8H PRN #30 tablet 01/05/20 09/12/21 Unknown Rx Sulfamethoxazole/Trimethoprim 1 each PO BID 3 Days #6 tablet 03/24/21 09/12/21 Unknown Rx [Bactrim 400-80 mg Tablet] Review of Systems ROS: Stated complaint: CHEST PAIN Other details as noted in HPI Constitutional: malaise. denies: fever Eyes: denies: eye discharge ENT: denies: epistaxis Respiratory: denies: cough Cardiovascular: chest pain Gastrointestinal: denies: abdominal pain Musculoskeletal: myalgia Neurological: weakness, numbness Medications and Allergies Allergies Allergy/AdvReac Type Severity Reaction Status Date / Time Milk Containing Products Allergy Vomiting Verified 09/12/21 10:24 metoclopramide [From Reglan] AdvReac Hives Verified 09/12/21 10:24 Home Medications Medication Instructions Recorded Confirmed Last Taken Type FLUoxetine HCL [PROzac] 40 mg PO DAILY 02/22/14 09/12/21 12/14/18 History Ferrous Sulfate [Feosol 325 MG tab] 325 mg PO BID #60 tablet 12/16/18 09/12/21 Unknown Rx Lisinopril/Hydrochlorothiazide 1 each PO DAILY 08/29/19 09/12/21 Unknown History [Zestoretic 20-12.5 mg] OLANzapine [ZyPREXA] 5 mg PO DAILY 08/29/19 09/12/21 Unknown History hydrALAZINE [Apresoline TAB] 10 mg PO DAILY 08/29/19 08/29/19 Unknown History Gabapentin 300 mg PO Q12H PRN #30 cap 01/05/20 09/12/21 Unknown Rx Meclizine [Antivert] 25 mg PO Q8H PRN #30 tablet 01/05/20 09/12/21 Unknown Rx Sulfamethoxazole/Trimethoprim 1 each PO BID 3 Days #6 tablet 03/24/21 09/12/21 Unknown Rx [Bactrim 400-80 mg Tablet] Medications and Allergies Allergies Allergy/AdvReac Type Severity Reaction Status Date / Time Milk Containing Products Allergy Vomiting Verified 09/12/21 10:24 metoclopramide [From Reglan] AdvReac Hives Verified 09/12/21 10:24 Home Medications Medication Instructions Recorded Confirmed Last Taken Type FLUoxetine HCL [PROzac] 40 mg PO DAILY 02/22/14 09/12/21 12/14/18 History Ferrous Sulfate [Feosol 325 MG tab] 325 mg PO BID #60 tablet 12/16/18 09/12/21 Unknown Rx Lisinopril/Hydrochlorothiazide 1 each PO DAILY 08/29/19 09/12/21 Unknown History [Zestoretic 20-12.5 mg] OLANzapine [ZyPREXA] 5 mg PO DAILY 08/29/19 09/12/21 Unknown History hydrALAZINE [Apresoline TAB] 10 mg PO DAILY 08/29/19 08/29/19 Unknown History Gabapentin 300 mg PO Q12H PRN #30 cap 01/05/20 09/12/21 Unknown Rx Meclizine [Antivert] 25 mg PO Q8H PRN #30 tablet 01/05/20 09/12/21 Unknown Rx Sulfamethoxazole/Trimethoprim 1 each PO BID 3 Days #6 tablet 03/24/21 09/12/21 Unknown Rx [Bactrim 400-80 mg Tablet] Active Meds: Active Medications Acetaminophen (Acetaminophen 325 Mg Tab) 650 mg PO Q4H PRN PRN Reason: Pain MILD(1-3)/Fever >100.5/POLLACK Famotidine (Famotidine 20 Mg/2 Ml Inj) 20 mg IV BID [facility] Last Admin: 09/13/21 09:02 Dose: 20 mg Documented by: Ferrous Sulfate (Ferrous Sulfate 325 Mg Tab) 325 mg PO QDAY [facility] Last Admin: 09/13/21 09:01 Dose: 325 mg Documented by: Fluoxetine HCl (Fluoxetine 20 Mg Cap) 40 mg PO DAILY [facility] Last Admin: 09/13/21 09:01 Dose: 40 mg Documented by: Gabapentin (Gabapentin 300 Mg Cap) 300 mg PO Q12H PRN PRN Reason: radiculopathy Heparin Sodium (Porcine) (Heparin 5,000 Unit/1 Ml Vial) 5,000 unit SUB-Q Q12HR [facility] Last Admin: 09/13/21 09:02 Dose: 5,000 unit Documented by: Hydralazine HCl (Hydralazine 10 Mg Tab) 10 mg PO Q8HR [facility] Last Admin: 09/13/21 06:14 Dose: Not Given Documented by: Hydrochlorothiazide (Hydrochlorothiazide 12.5 Mg Cap) 12.5 mg PO QDAY [facility] Last Admin: 09/13/21 09:01 Dose: 12.5 mg Documented by: Hydromorphone HCl (Hydromorphone 1 Mg/1 Ml Inj) 0.5 mg IV Q3H PRN PRN Reason: Pain , Severe (7-10) Sodium Chloride (Nacl 0.9% 1000 Ml) 1,000 mls @ 75 mls/hr IV DIRECT [facility] Last Admin: 09/12/21 23:24 Dose: 75 mls/hr Documented by: Lisinopril (Lisinopril 20 Mg Tab) 20 mg PO QDAY [facility] Last Admin: 09/13/21 09:04 Dose: 20 mg Documented by: Meclizine HCl (Meclizine 25 Mg Tab) 25 mg PO Q8H PRN PRN Reason: Vertigo Olanzapine (Olanzapine 5 Mg Tab) 5 mg PO DAILY [facility] Last Admin: 09/13/21 09:01 Dose: 5 mg Documented by: Ondansetron HCl (Ondansetron 4 Mg/2 Ml Inj) 4 mg IV Q8H PRN PRN Reason: Nausea And Vomiting Last Admin: 09/13/21 09:03 Dose: 4 mg Documented by: Oxycodone/Acetaminophen (Oxycodone /Acetaminophen 5-325mg Tab) 1 tab PO Q6H PRN PRN Reason: Pain, Moderate (4-6) Last Admin: 09/13/21 09:04 Dose: 1 tab Documented by: Potassium Chloride (Potassium Chloride Er 20 Meq Tab) 40 meq PO ONCE@0730 NR Stop: 09/13/21 10:00 Last Admin: 09/13/21 09:02 Dose: 40 meq Documented by: Sodium Chloride (Sodium Chloride 0.9% 10 Ml Flush Syringe) 10 ml IV BID [facility] Last Admin: 09/13/21 09:02 Dose: 10 ml Documented by: Sodium Chloride (Sodium Chloride 0.9% 10 Ml Flush Syringe) 10 ml IV PRN PRN PRN Reason: LINE FLUSH Physical Examination - Vital Signs Vital Signs: Vital Signs Temp Pulse Resp BP Pulse Ox 98.8 F 87 14 144/77 98 09/12/21 08:26 09/12/21 08:26 09/12/21 08:26 09/12/21 08:26 09/12/21 08:26 - Constitutional General appearance: comfortable - EENT EENT: Present: PERRL, mucous membranes moist - Respiratory Respiratory: Present: chest non-tender, lungs clear, rhonchi - Cardiovascular Cardiovascular: Present: regular rate, normal S1, normal S2 Extremities: Present: no peripheral edema bilatateraly, no clubbing, cyanosis - Gastrointestinal Gastrointestinal: Present: normoactive bowel sounds - Integumentary Integumentary: Present: normal - Neurologic Cranial nerve examination: PERRL, EOMI, intact Speech examination: intact Sensorimotor examination: intact Detailed motor examination: grossly full strength in, other (with weakness left upper and lower 3/5 with impaired sensation , no cranial involvment , reflexes are suppressed bilateral, gait not done) - Level of Consciousness 1a. Level of Consciousness: alert/keenly responsive - LOC Questions 1b. LOC Questions: answers both correctly - LOC Command 1c. LOC Commands: performs tasks correctly - Best Gaze 2. Best Gaze: normal - Visual 3. Visual: no visual loss - Facial Palsy 4. Facial Palsy: normal symmetrical movement - Motor Arm 5a. Motor Arm Left: drift 5b. Motor Arm Right: no drift - Motor Leg 6a. Motor Leg Left: drift 6b. Motor Leg Right: no drift - Limb Ataxia 7. Limb Ataxia: absent - Sensory 8. Sensory: mild/moderate sensory loss - Best Language 9. Best Language: no aphasia - Dysarthria 10. Dysarthria: normal - Extinction and Inattention 11. Extinction/Inattention: no abnormality - Scoring Total Score: 3 Stroke Severity: Minor Stroke Results - Laboratory Findings CBC and BMP: 09/13/21 05:23 09/13/21 05:23 Abnormal Lab Findings: Abnormal Labs 09/12/21 09/12/21 09/12/21 10:14 10:14 10:14 WBC 3.8 L RDW 17.1 H Lymph % (Auto) 45.4 H Addison % (Auto) 7.6 H Seg Neutrophils % Seg Neutrophils # 1.7 L D-Dimer 241.38 H Potassium 3.4 L Chloride 96.6 L BUN Creatinine 0.4 L Albumin 09/13/21 09/13/21 05:23 05:23 WBC 3.0 L RDW 16.8 H Lymph % (Auto) 53.4 H Addison % (Auto) 8.2 H Seg Neutrophils % 35.1 L Seg Neutrophils # 1.0 L D-Dimer Potassium 3.2 L Chloride BUN 6 L Creatinine 0.4 L Albumin 3.7 L Assessment and Plan Assessment and Plan 36-year-old female with history of hypertension, depression comes to the ER with complaint of passing out yesterday. And also complains of left-sided numbness and weakness. Last well-known time was yesterday. - Patient Problems # Left hemiparesis and sensory deficit new onset symptoms and finding fluctuate -CT brain and cTA brain and neck are unremarkable -MRI brain is pending suggest MRV due to haedache and morbid obesity r/o sinus thrombosis -NIH today#3 #Recurrent headache -for 2 weeks -taking tylenol -suggest MRV and MRI brain # Hypertension -Continue antihypertensives # Left sided numbness # Hypokalemia -Supplemented # DVT prophylaxis -On anticoagulation and GI prophylaxis PLAN 1- MRI brain and MRV sinus 2- Pt therapy will follow
[2021-09-13] MEDS ORDERED: NON-FORMULARY EACH (Lisinopril/Hydrochlorothiazide [Zestoretic 20-12.5 Mg] 1 EACH Tablet) PO SCH (10:00)
--- NOTE | 2021-09-13 10:40 | Electrocardiograph Report ---
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
--- NOTE | 2021-09-13 12:34 | Discharge Summary ---
Providers - Providers Date of Admission: 09/12/21 11:58 Date of discharge: 09/13/21 Attending physician: CINDI MCDOWELL MD 09/12/21 22:22 Consult to Physician [CONS] Routine Comment: Consulting Provider: ROBERT LACY Physician Instructions: Reason For Exam: Conversion reaction/hemiparesis 09/13/21 11:09 Occupational Therapy Evaluate and Treat [CONS] Routine Comment: Reason For Exam: Patient has L sided weakness Physical Therapy Evaluation and Treat [CONS] Routine Comment: Reason For Exam: Patient has L sided weakness [facility] Reason for admission: Concern for CVA Condition: Good Pertinent studies: Reviewed. Procedures: None. Hospital course: Patient is a 37-year-old female past medical history of hypertension, depression, obesity, and increased life stressors that presented with left-sided numbness and weakness after having syncope yesterday. Patient was evaluated in the ED and was found to have left-sided weakness and dysarthria. The patient was evaluated with CT head Noncon, MRA head and neck, chest x-ray, and pulmonary perfusion that were all found to be negative. Neurology was consulted for work-up of possible conversion disorder versus stroke. Low clinical suspicion for stroke given significant improvement and low likelihood given age. The patient has since had an improvement in physical symptoms but still exhibits some left-sided weakness. The patient was evaluated by physical therapy, and they recommended rolling walker and home PT. Antihypertensives were discontinued due to repeated days of soft blood pressures. Patient will follow with primary care to restart antihypertensives. Patient is medically cleared for discharge. Disposition: 01 HOME / SELF CARE / HOMELESS Final Discharge Diagnosis (Prints w/discharge instructions): Conversion disorder, stress, hypertension, depression, obesity, hypokalemia Time spent for discharge: 40 min Core Measure Documentation - Palliative Care Palliative Care/ Comfort Measures: Not Applicable - Core Measures Any of the following diagnoses?: none - VTE Discharge Requirements Deep Vein Thrombosis/Pulmonary Embolism Present on Admission: No Has pt received <5 days of overlap therapy or INR<2.0: No (Not indicated) Anticoagulant overlap therapy prescribed at discharge: No Contraindication No Overlap Therapy order at DC: Not Indicated - Acute [place] Discharge Requirements Aspirin at discharge: No Reason for no aspirin on DC: Medical contraindication (Not indicated) MARK/ARB for LVSD if EF <40%: Not Applicable Reason for no MARK/ARB: Medical contraindication (Not indicated) Beta reginaldo at discharge: No Reason for no beta reginaldo on DC: Medical contraindication (Not indicated) Statin for LDL = or >100 mg/dl on DC: Not Applicable Reason for no statin on DC: Medical contraindication (Not indicated) - Heart Failure Discharge Requirements MARK/ARB for LVSD if EF <40%: Not Applicable Reason for no MARK/ARB: Medical contraindication (Not indicated) Beta reginaldo at discharge: No (Not indicated) Reason for no beta reginaldo on DC: Medical contraindication (Not indicated) - Stroke Discharge Requirements Statin for LDL = or >70 mg/dl on DC: Not Applicable Reason for no statin on DC: Not Indicated Anticoag for atrial fib/atrial flutter: Not Applicable Reason for no anticoag for AF/F on DC: Not Indicated Antithrombotic for ischemic stroke: No Reason for no antithrombotic on DC: Not Indicated Exam - Constitutional Vitals: Temp Pulse Resp BP Pulse Ox 97.6 F 81 20 98/57 97 09/13/21 03:38 09/13/21 09:04 09/13/21 03:38 09/13/21 09:04 09/13/21 03:38 General appearance: Present: no acute distress, well-nourished, obese - EENT Eyes: Present: PERRL, EOM intact ENT: hearing intact, clear oral mucosa, dentition normal - Neck Neck: Present: supple, normal ROM - Respiratory Respiratory effort: normal Respiratory: bilateral: CTA - Cardiovascular Rhythm: regular Heart Sounds: Present: S1 & S2 - Extremities Extremities: no ischemia, pulses intact, pulses symmetrical, No edema, normal temperature, normal color Peripheral Pulses: within normal limits - Abdominal General gastrointestinal: Present: soft, non-tender, non-distended, normal bowel sounds Female genitourinary: Present: deferred - Rectal Rectal Exam: deferred - Integumentary Integumentary: Present: clear, warm, dry - Musculoskeletal Musculoskeletal: left sided weakness - Psychiatric Psychiatric: appropriate mood/affect, intact judgment & insight, memory intact, cooperative - Neurologic Neurologic: CNII-XII intact, moves all extremities - Allied Health Allied health notes reviewed: nursing Plan Activity: no restrictions Weight Bearing Status: Weight Bear as Tolerated Diet: low salt, diabetic Care Plan Goals: Safe to discharge home. Assessment: The patient was admitted for work-up of possible CVA; however, all imaging (CT head Noncon, CTA head and neck, pulmonary perfusion, MRI brain, MRV, and chest x-ray) have all been found to be negative. Patient discharging home. Follow up with: MARIAELENA MCGOVERN MD [Primary Care Provider] - 3-5 Days
[2021-09-13] MEDS: SODIUM CHLORIDE 0.9% 1000 ML 1,000 ML IV SCH (13:24)
--- NOTE | 2021-09-13 15:20 | Progress Note ---
Assessment and Plan Assessment and plan: Patient is a 37-year-old female past medical history of hypertension, depression, obesity, and increased life stressors that presented with left-sided numbness and weakness after having syncope yesterday. Patient was evaluated in the ED and was found to have left-sided weakness and dysarthria. #Syncope #Possible conversion disorder #Possible CVA #Left hemiparesis -Patient received ASA 325 mg in ED. Holding off on ASA 325 mg daily due to low clinical suspicion for CVA. -CT head Noncon, CTA head and neck, and pulmonary perfusion scan are negative. -Low clinical suspicion for CVA; therefore, no stroke protocol was initiated. -Neurology consulted; appreciate recs. -Pending MRI brain and MRV sinus to rule out possible stroke and thrombosis, respectively. -Physical therapy consulted; appreciate recs -Continue to monitor #Hypertension -continue home antihypertensives -Continue to monitor #Hypokalemia -Potassium 3.2 -Repleted. Continue to monitor #Obesity #Weight loss counseling -BMI 37.8 -Counseled about lifestyle changes such as dietary changes (more lean meats and fresh fruits and vegetables), exercise, and weight loss. Patient expressed understanding. -Time: +15 minutes #Advanced care planning -Disease education conducted, care plan discussed, diagnoses discussed, prognosis discussed, and patient acknowledges understanding with care plan -Time: +20 minutes Disposition Plan: Continue medical management Total Time Spent with Patient (Minutes): 45 minutes History Interval history: No acute events overnight. Hospitalist Physical - Constitutional Vitals: Temp Pulse Resp BP Pulse Ox 98.2 F 78 18 93/53 98 09/13/21 11:28 09/13/21 13:38 09/13/21 13:38 09/13/21 11:28 09/13/21 13:38 General appearance: Present: no acute distress, well-nourished, obese - EENT Eyes: Present: PERRL, EOM intact ENT: hearing intact, clear oral mucosa, dentition normal - Neck Neck: Present: supple, normal ROM - Respiratory Respiratory effort: normal Respiratory: bilateral: CTA - Cardiovascular Rhythm: regular Heart Sounds: Present: S1 & S2 - Extremities Extremities: no ischemia, pulses intact, pulses symmetrical, No edema, normal temperature, normal color Peripheral Pulses: within normal limits - Abdominal General gastrointestinal: soft, non-tender, non-distended, normal bowel sounds - Integumentary Integumentary: Present: clear, warm, dry - Psychiatric Psychiatric: appropriate mood/affect, intact judgment & insight, memory intact, cooperative - Neurologic Neurologic: CNII-XII intact, other (Left-sided weakness of upper and lower extremity) HEART Score - HEART Score Troponin: Troponin T < 0.010 ng/mL (0.00-0.029) 09/12/21 10:14 Results - Labs CBC & Chem 7: 09/13/21 05:23 09/13/21 05:23 Labs: Laboratory Last Values WBC 3.0 K/mm3 (4.5-11.0) L 09/13/21 05:23 RBC 3.99 M/mm3 (3.65-5.03) 09/13/21 05:23 Hgb 11.2 gm/dl (10.1-14.3) 09/13/21 05:23 Hct 34.8 % (30.3-42.9) 09/13/21 05:23 MCV 87 fl (79-97) 09/13/21 05:23 MCH 28 pg (28-32) 09/13/21 05:23 MCHC 32 % (30-34) 09/13/21 05:23 RDW 16.8 % (13.2-15.2) H 09/13/21 05:23 Plt Count 267 K/mm3 (140-440) 09/13/21 05:23 Lymph % (Auto) 53.4 % (13.4-35.0) H 09/13/21 05:23 [place] % (Auto) 8.2 % (0.0-7.3) H 09/13/21 05:23 Eos % (Auto) 2.0 % (0.0-4.3) 09/13/21 05:23 Baso % (Auto) 1.3 % (0.0-1.8) 09/13/21 05:23 Lymph # (Auto) 1.6 K/mm3 (1.2-5.4) 09/13/21 05:23 [place] # (Auto) 0.2 K/mm3 (0.0-0.8) 09/13/21 05:23 Eos # (Auto) 0.1 K/mm3 (0.0-0.4) 09/13/21 05:23 Baso # (Auto) 0.0 K/mm3 (0.0-0.1) 09/13/21 05:23 Seg Neutrophils % 35.1 % (40.0-70.0) L 09/13/21 05:23 Seg Neutrophils # 1.0 K/mm3 (1.8-7.7) L 09/13/21 05:23 D-Dimer 241.38 ng/mlDDU (0-234) H 09/12/21 10:14 Sodium 140 mmol/L (137-145) 09/13/21 05:23 Potassium 3.2 mmol/L (3.6-5.0) L 09/13/21 05:23 Chloride 100.7 mmol/L (98-107) 09/13/21 05:23 Carbon Dioxide 25 mmol/L (22-30) 09/13/21 05:23 Anion Gap 18 mmol/L 09/13/21 05:23 BUN 6 mg/dL (7-17) L 09/13/21 05:23 Creatinine 0.4 mg/dL (0.6-1.2) L 09/13/21 05:23 Estimated GFR > 60 ml/min 09/13/21 05:23 BUN/Creatinine Ratio 15 % 09/13/21 05:23 Glucose 80 mg/dL (65-100) 09/13/21 05:23 POC Glucose 81 mg/dL (70-105) 09/13/21 13:22 Calcium 8.8 mg/dL (8.4-10.2) 09/13/21 05:23 Magnesium 1.90 mg/dL (1.7-2.3) 09/12/21 11:55 Total Bilirubin 0.60 mg/dL (0.1-1.2) 09/13/21 05:23 Direct Bilirubin < 0.2 mg/dL (0-0.2) 09/12/21 10:14 Indirect Bilirubin 0.5 mg/dL 09/12/21 10:14 AST 13 units/L (5-40) 09/13/21 05:23 ALT 9 units/L (7-56) 09/13/21 05:23 Alkaline Phosphatase 47 units/L (35-129) 09/13/21 05:23 Total Creatine Kinase 82 units/L (30-135) 09/12/21 10:14 Troponin T < 0.010 ng/mL (0.00-0.029) 09/12/21 10:14 Total Protein 6.6 g/dL (6.3-8.2) 09/13/21 05:23 Albumin 3.7 g/dL (3.9-5) L 09/13/21 05:23 Albumin/Globulin Ratio 1.3 % 09/13/21 05:23 TSH 0.291 mlU/mL (0.270-4.200) 09/12/21 11:55 HCG, Qual Negative (Negative) 09/12/21 10:14 HCG, Quant < 2 mIU/mL (0-4) 09/12/21 10:14 [place]/IV: Voiding Method Toilet Active Medications - Current Medications Current Medications: Generic Name Dose Route Start Last Admin Trade Name Freq PRN Reason Stop Dose Admin Acetaminophen 650 mg 09/12/21 22:22 Acetaminophen 325 Mg Tab PO Q4H PRN Pain MILD(1-3)/Fever >100.5/POLLACK Famotidine 20 mg 09/12/21 23:00 09/13/21 09:02 Famotidine 20 Mg/2 Ml Inj IV 20 mg BID JOSE ANTONIO Administration Ferrous Sulfate 325 mg 09/13/21 10:00 09/13/21 09:01 Ferrous Sulfate 325 Mg Tab PO 325 mg QDAY JOSE ANTONIO Administration Fluoxetine HCl 40 mg 09/13/21 10:00 09/13/21 09:01 Fluoxetine 20 Mg Cap PO 40 mg DAILY JOSE ANTONIO Administration Gabapentin 300 mg 09/12/21 22:20 Gabapentin 300 Mg Cap PO Q12H PRN radiculopathy Heparin Sodium (Porcine) 5,000 unit 09/12/21 22:30 09/13/21 09:02 Heparin 5,000 Unit/1 Ml Vial SUB-Q 5,000 unit Q12HR JOSE ANTONIO Administration Hydralazine HCl 10 mg 09/12/21 23:00 09/13/21 13:03 Hydralazine 10 Mg Tab PO Not Given Q8HR JOSE ANTONIO Hydrochlorothiazide 12.5 mg 09/13/21 10:00 09/13/21 09:01 Hydrochlorothiazide 12.5 Mg Cap PO 12.5 mg QDAY JOSE ANTONIO Administration Hydromorphone HCl 0.5 mg 09/12/21 22:22 Hydromorphone 1 Mg/1 Ml Inj IV Q3H PRN Pain , Severe (7-10) Sodium Chloride 1,000 mls @ 75 mls/hr 09/12/21 22:30 09/13/21 13:24 Nacl 0.9% 1000 Ml IV 75 mls/hr DIRECT JOSE ANTONIO Administration Lisinopril 20 mg 09/13/21 10:00 09/13/21 09:04 Lisinopril 20 Mg Tab PO 20 mg QDAY JOSE ANTONIO Administration Meclizine HCl 25 mg 09/12/21 22:20 Meclizine 25 Mg Tab PO Q8H PRN Vertigo Olanzapine 5 mg 09/13/21 10:00 09/13/21 09:01 Olanzapine 5 Mg Tab PO 5 mg DAILY JOSE ANTONIO Administration Ondansetron HCl 4 mg 09/12/21 22:22 09/13/21 09:03 Ondansetron 4 Mg/2 Ml Inj IV 4 mg Q8H PRN Administration Nausea And Vomiting Oxycodone/Acetaminophen 1 tab 09/12/21 22:22 09/13/21 09:04 Oxycodone /Acetaminophen 5-325mg Tab PO 1 tab Q6H PRN Administration Pain, Moderate (4-6) Sodium Chloride 10 ml 09/12/21 23:00 09/13/21 09:02 Sodium Chloride 0.9% 10 Ml Flush Syringe IV 10 ml BID JOSE ANTONIO Administration Sodium Chloride 10 ml 09/12/21 22:22 Sodium Chloride 0.9% 10 Ml Flush Syringe IV PRN PRN LINE FLUSH
[2021-09-13] MEDS ORDERED: PROCHLORPERAZINE EDISYLATE 10 MG/2 ML VIAL IV ONE (16:20)
[2021-09-14] MEDS: hydrALAZINE 10 MG TAB PO SCH (05:23)
[2021-09-14 06:03] LABS: BUN/Creatinine Ratio 8; Blood Urea Nitrogen 4 mg/dL (7-17); Hemolysis Index 4
--- NOTE | 2021-09-14 09:05 | Electrocardiograph Report ---
[facility] Test Date: 2021-09-14 Test Time: 07:11:32 Pat Name: DARIAN EATON Department: Room: A481 1 Gender: F Grain [employer]: NICOLASA : 1985 Requested By: MERNA KAISER Order Number: [id number] Reading MD: Chong Milian Measurements Intervals [place] Rate: 76 P: 45 ND: 158 QRS: -17 QRSD: 103 T: 33 QT: 383 QTc: 433 Interpretive Statements Sinus rhythm Compared to ECG 09/12/2021 08:34:31 No significant changes Electronically Signed On 09-14-2021 9:04:32 EST by Chong Milian
[2021-09-14] MEDS ORDERED: SODIUM CHLORIDE 0.9% 100 ML IVPB IV SCH (10:00)
[2021-09-14] MEDS ORDERED: SODIUM CHLORIDE 0.9% 1000 ML 1,000 ML IV ONE (10:30)
--- NOTE | 2021-09-14 10:30 | Magnetic Resonance Report ---
MR MRA/MRV head wo con INDICATION / CLINICAL INFORMATION: 36 years Female; blurred vison headache and left side weakness. TECHNIQUE: 3-D evaluation for MR venography of the brain. COMPARISON: None available. FINDINGS: There is no clear MRV evidence of venous sinus thrombosis at. There is mild relative developmental hy poplasia of the left transverse sinus at. The internal cerebral veins are patent. IMPRESSION: There is no MRV evidence of venous sinus thrombosis. Signer Name: Hemanth Chapman MD Signed: 09/14/2021 10:25 AM Workstation Name: [id number]
[2021-09-14] MEDS: FERROUS SULFATE 325 MG TAB PO SCH (11:07)
[2021-09-14] MEDS: FLUoxetine 20 MG CAP PO SCH (11:07)
[2021-09-14] MEDS: FAMOTIDINE 20 MG/2 ML INJ IV SCH (11:08)
[2021-09-14] MEDS: HEPARIN 5,000 UNIT/1 ML VIAL SUB-Q SCH (11:08)
[2021-09-14] MEDS: LISINOPRIL 20 MG TAB PO SCH (11:10)
[2021-09-14] MEDS: hydroCHLOROthiazide 12.5 MG CAP PO SCH (11:10)
[2021-09-14 12:11] VITALS: BP 112/64
--- NOTE | 2021-09-14 12:38 | Progress Note ---
Assessment and Plan Assessment and Plan 36-year-old female with history of hypertension, depression comes to the ER with complaint of passing out yesterday. And also complains of left-sided numbness and weakness. Last well-known time was yesterday. - Patient Problems # Left hemiparesis and sensory deficit new onset improved today -symptoms and finding fluctuate -CT brain and cTA brain and neck are unremarkable -MRI brain and MRV are unremarkable -NIH today#0 today #Recurrent headache -for 2 weeks -taking tylenol -suggest MRV and MRI brain is unremarkable # Hypertension -Continue antihypertensives # Left sided numbness # Hypokalemia -Supplemented # DVT prophylaxis -On anticoagulation and GI prophylaxis PLAN 1- As per PCP 2- restart home medication 3- Will sign off 4- pt. assurance all work up is unrevealing Subjective Date of service: 09/14/21 Principal diagnosis: weakness left side Interval history: doing better today weakness improved she had no headache she wants to go home MRI brain and MRV are unremarkable as well as CT brain and CTA brain and neck Objective - Vital Sign Vital Signs - 12hr 09/14/21 09/14/21 09/14/21 01:23 01:49 04:39 Temperature 98.0 F Pulse Rate 82 76 Pulse Rate [ 78 From Monitor] Respiratory 20 16 Rate Blood Pressure 96/56 O2 Sat by Pulse 98 96 Oximetry 09/14/21 09/14/21 09/14/21 07:55 08:04 08:06 Temperature 98.1 F Pulse Rate 80 77 Pulse Rate [ 78 From Monitor] Respiratory 18 18 Rate Blood Pressure 99/48 O2 Sat by Pulse 95 98 Oximetry 09/14/21 12:00 Temperature Pulse Rate 92 H Pulse Rate [ From Monitor] Respiratory Rate Blood Pressure 112/64 O2 Sat by Pulse 100 Oximetry - General Apperance Constitutional: comfortable - EENT EENT: PERRL, mucous membranes moist - Respiratory Respiratory: chest non-tender, lungs clear, rhonchi - Cardiovascular Cardiovascular: regular rate, normal S1, normal S2 Extremities: no peripheral edema bilat, no clubbing, cyanosis - Gastrointestinal Gastrointestinal: normoactive bowel sounds - Integumentary Integumentary: normal - Neurologic Cranial nerve examination: intact Speech examination: intact Detailed motor examination: grossly full strength in - Laboratory Findings CBC and BMP: 09/13/21 05:23 09/14/21 04:57 Abnormal Lab Findings: Abnormal Labs 09/12/21 09/12/21 09/12/21 10:14 10:14 10:14 WBC 3.8 L RDW 17.1 H Lymph % (Auto) 45.4 H [place] % (Auto) 7.6 H Seg Neutrophils % Seg Neutrophils # 1.7 L D-Dimer 241.38 H Sodium Potassium 3.4 L Chloride 96.6 L BUN Creatinine 0.4 L Glucose POC Glucose Albumin 09/13/21 09/13/21 09/13/21 05:23 05:23 11:59 WBC 3.0 L RDW 16.8 H Lymph % (Auto) 53.4 H [place] % (Auto) 8.2 H Seg Neutrophils % 35.1 L Seg Neutrophils # 1.0 L D-Dimer Sodium Potassium 3.2 L Chloride BUN 6 L Creatinine 0.4 L Glucose POC Glucose 57 L Albumin 3.7 L 09/14/21 09/14/21 04:57 11:42 WBC RDW Lymph % (Auto) [place] % (Auto) Seg Neutrophils % Seg Neutrophils # D-Dimer Sodium 136 L Potassium 3.5 L Chloride BUN 4 L Creatinine 0.5 L Glucose 115 H POC Glucose 67 L Albumin
[2021-09-15 06:12] LABS: Basophils % (Auto) 0.5 % (0.0-1.8); Eosinophils # (Auto) 0.2 K/mm3 (0.0-0.4); Eosinophils % (Auto) 5.9 % (0.0-4.3); Hematocrit 36.2 % (30.3-42.9); Hemoglobin 11.1 gm/dl (10.1-14.3); Lymphocytes % (Auto) 52.1 % (13.4-35.0); Mean Corpuscular HGB Conc 31 % (30-34); Mean Corpuscular Volume 91 fl (79-97); Monocytes # (Auto) 0.2 K/mm3 (0.0-0.8); Monocytes % (Auto) 4.2 % (0.0-7.3); Platelet Count 259 K/mm3 (140-440); Red Blood Count 3.98 M/mm3 (3.65-5.03); Red Cell Distribution Width 18.7 % (13.2-15.2)
== END 2021-09-14 13:57 | disposition home or self-care (01) ==
LOC: ED 08:22 → 4A 11:58
PROVIDERS: ADMIT Internal Medicine; ATTEND Student in an Organized Health Care Education/Training Program
DX: G81.94 Hemiplegia, unspecified affecting left nondominant side (principal); R07.89 Other chest pain; R55 Syncope and collapse; I10 Essential (primary) hypertension; E87.6 Hypokalemia; E66.9 Obesity, unspecified; F44.9 Dissociative and conversion disorder, unspecified; F31.9 Bipolar disorder, unspecified; F44.4 Conversion disorder with motor symptom or deficit; R51.9 Headache, unspecified; R29.704 NIHSS score 4; R20.0 Anesthesia of skin; Z87.442 Personal history of urinary calculi; Z90.49 Acquired absence of other specified parts of digestive tract; Z98.84 Bariatric surgery status; Z90.710 Acquired absence of both cervix and uterus; Z79.899 Other long term (current) drug therapy; Z98.890 Other specified postprocedural states; Z68.37 Body mass index [BMI] 37.0-37.9, adult
CPT/HCPCS: 36415; 70450; 70496; 70498; 70544; 71045; 72125; 78580; 80048; 80053; 80076; 82550; 82962; 83735; 84100; 84443; 84484; 84702; 84703; 85025; 85379; 93005; 96361; 96372; 96374; 96375; 96376; 99285; A9540; G0378; J0780; J1644; J2405; J3490; J7030; J7120; Q9967; Q0162